=== PATIENT | female | born 1935 | race Caucasian/White ===

== ENCOUNTER 2019-12-14 15:20 | Inpatient (IN) | payer MEDICARE, OTHER ==
[2019-12-14] MEDS ORDERED: SODIUM CHLORIDE FLUSH 0.9% 10 ML SYRINGE IVP PRN (18:29)
[2019-12-14] MEDS ORDERED: IOVERSOL 320 100 ML VIAL IVP ONE (19:27)
--- NOTE | 2019-12-14 19:42 | HISTORY & PHYSICAL EXAMINATION ---
Chief Complaint - Chief Complaint Chief Complaint: Jaw infection History of Present Illness - Admitted From Admitted From:: home - History of Present Illness HPI Comment/Other: 84 yo F with T2DM on insulin therapy, COPD, CKD who fell on Wednesday 12APR hitting her head on a bookcase. She was seen in [facility] ER and found to have a jaw fracture and infection of an implant in her jaw. She saw her oral surgeon today who wanted to admit her for hte infection and surgery. She currently feels okay just has pain in her jaw. She states the swelling on her face has improved while on the oral antibiotics. History - Past Medical History Cardiovascular: reports: High cholesterol, Murmur Respiratory: reports: COPD Endocrine/Autoimmune: reports: Type 2 diabetes GI: reports: GERD : reports: Incontinence, Renal insuffiency HEENT: reports: Dental implants Psych: reports: Depression Musculoskeletal: reports: Rheumatoid arthritis - Past Surgical History Ortho: reports: Knee replacement HEENT: reports: Cataracts - Family & Social History Living arrangement: At home Living Situation: With family - Substance History Use: Uses substance without health or social issues: NONE - POLST Patient has POLST: No POLST Status: DNR (Advanced Directive with . DNR/I) Meds/Allgy - Home Medications Home Medications: Ambulatory Orders Medication Instructions Recorded Confirmed Albuterol Sulfate [Proair Hfa 1 puffs INH Q4H PRN 12/14/19 12/14/19 Inhaler] Aspirin [Aspirin EC] 81 mg PO DAILY 12/14/19 12/14/19 Atorvastatin [Lipitor] 40 mg PO DAILY 12/14/19 12/14/19 Clindamycin HCl [Clindamycin 300MG 300 mg PO TID 12/14/19 12/14/19 CAP] FLUoxetine [PROzac] 40 mg PO DAILY 12/14/19 12/14/19 Fluticasone/Salmeterol [Advair 1 puffs INH BID 12/14/19 12/14/19 250-50 Diskus] Gabapentin 900 mg PO DAILY PM 12/14/19 12/14/19 Insulin Aspart [NovoLOG] 10 units INJ TIDWM 12/14/19 12/14/19 Insulin Glargine [Lantus Solostar] 28 units INJ DAILY 12/14/19 12/14/19 Omeprazole 20 mg PO DAILY 12/14/19 12/14/19 Telmisartan [Micardis] 10 mg PO DAILY 12/14/19 12/14/19 Tiotropium [place] [Spiriva 4 gm IH DAILY 12/14/19 12/14/19 Respimat] Tolterodine Tartrate [Detrol LA] 2 mg PO DAILY 12/14/19 12/14/19 - Allergies Allergies/Adverse Reactions: Allergies Allergy/AdvReac Type Severity Reaction Status Date / Time lisinopril Allergy Unknown Verified 12/14/19 20:06 Penicillins Allergy Unknown Verified 12/14/19 20:06 shellfish derived Allergy Hives Verified 12/14/19 20:06 Review of Systems - Constitutional Constitutional: denies: Fever, Chills - Ears, Nose & Throat Ears, Nose & Throat: reports: Dentures, Dental pain, Other (Right lower jaw pain and swelling) - Cardiovascular Cariovascular: denies: Chest pain - Respiratory Respiratory: denies: Cough, Wheezing - Gastrointestinal Gastrointestinal: denies: Abdominal pain - Integumentary Integumentary: denies: Rash Exam - Vital Signs Reviewed Vital Signs: Yes Vital Signs: Vital Signs x48h Temp Pulse Resp BP Pulse Ox 12/14/19 18:30 36.4 C L 95 16 144/80 H 94 - Physical Exam General Appearance: positive: No acute distress, Alert Eyes Bilateral: positive: PERRL, EOMI ENT: positive: Pharynx nml, Other (Adentulous, semicirular metal implant in the anterior mandible with purulent discharge surrounding it. Tender to light palpation over the mid right mandible and right upper neck.) Neck: positive: Trachea midline. negative: Lymphadenopathy (R), Lymphadenopathy (L) Respiratory: positive: No respiratory distress, Breath sounds nml Cardiovascular: positive: Regular rate & rhythm, Systolic murmur Abdomen: positive: Non-tender, No distention Skin: positive: No rash, Warm, Dry Extremities: positive: No pedal edema Neurologic/Psychiatric: positive: Oriented x3, CN's nml (2-12), Mood/affect nml Conclusion/Plan - Problem List (1) Mandibular body fracture Conclusion/Plan: 84 yo F with right mandibular fracture after falling 12APR. - Oral Surgeon consulted - CT with contrast of maxialofacial after IVF hydration. 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 - Clindamycin IV - Oral surgery consulted. (3) COPD (chronic obstructive pulmonary disease) Conclusion/Plan: COPD currently stable without exacerbation. - continue home medications (or equvalical) (4) Type 2 diabetes mellitus Conclusion/Plan: 84 yo F with T2DM on halfway insulin. Recent outpatient A1c of 10.7 - Lantus 20U QAM + Novolog 10U with meals. - Carb controlled diet and NPO at midnight. Qualifiers: Diabetes mellitus halfway insulin use: with halfway use Diabetes mellitus complication status: with kidney complications Diabetes mellitus complication detail: with chronic kidney disease (5) Depression Conclusion/Plan: continue medications (6) Rheumatoid arthritis Conclusion/Plan: Not on halfway immunosuppressive medications. (7) Chronic renal disease Conclusion/Plan: Baseline GFR 30-35 POC: duarte Diaz [phone] Code status: DNR/I
[2019-12-14 19:47] LABS: BASOPHILS # (AUTO) 0.1 10^3/uL (0.0-0.1); BASOPHILS % (AUTO) 0.7 %; EOSINOPHILS # (AUTO) 0.1 10^3/uL (0.0-0.7); EOSINOPHILS % (AUTO) 1.2 %; HGB - HEMOGLOBIN 15.2 g/dL (12.0-16.0); LYMPHOCYTES # (AUTO) 1.8 10^3/uL (1.5-3.5); LYMPHOCYTES % (AUTO) 25.9 %; MEAN CORPUSCULAR HEMOGLOBIN 30.7 pg (27.0-31.0); MEAN CORPUSCULAR HGB CONC 33.4 g/dL (32.0-36.0); MEAN CORPUSCULAR VOLUME 91.9 fL (81.0-99.0); MONOCYTES # (AUTO) 0.8 10^3/uL (0.0-1.0); MONOCYTES % (AUTO) 11.2 %; NEUTROPHILS # (AUTO) 4.2 10^3/uL (1.5-6.6); NEUTROPHILS % (AUTO) 60.6 %; PLT - PLATELET COUNT 191 10^3/uL (130-450); RED BLOOD COUNT 4.95 10^6/uL (4.20-5.40); RED CELL DISTRIBUTION WIDTH 12.6 % (12.0-15.0); WHITE BLOOD COUNT 6.9 x10^3/uL (4.8-10.8)
[2019-12-14 20:05] LABS: HB2 TOTAL 15.7 g/dL; HEMOGLOBIN A1C 1.46 g/dL; HEMOGLOBIN A1C % 10.7 % (4.6-6.2)
[2019-12-14] MEDS: ATORVASTATIN 40 MG TABLET PO SCH (20:21)
[2019-12-14] MEDS: GABAPENTIN 300 MG CAPSULE PO SCH (20:21)
[2019-12-14] MEDS: SODIUM CHLORIDE 0.9% 1,000 ML IV SCH (20:22)
[2019-12-14] MEDS: CLINDAMYCIN 600 MG/50 ML 50 ML IV SCH ×2 (20:22→23:38)
[2019-12-14 20:24] LABS: CALCIUM 9.1 mg/dL (8.5-10.3); CREATININE 1.6 mg/dL (0.4-1.0)
[2019-12-14] MEDS ORDERED: INSULIN ASPART 300 UNIT/3 ML PEN SUBQ SCH (21:32)
[2019-12-15] MEDS: SODIUM CHLORIDE FLUSH 0.9% 10 ML SYRINGE IVP SCH ×3 (00:22→17:12)
[2019-12-15] MEDS ORDERED: SODIUM CHLORIDE FLUSH 0.9% 10 ML SYRINGE IVP SCH (01:00)
[2019-12-15] MEDS: SODIUM CHLORIDE 0.9% 1,000 ML IV SCH ×3 (04:41→15:45)
[2019-12-15] MEDS: CLINDAMYCIN 600 MG/50 ML 50 ML IV SCH ×4 (05:41→23:03)
[2019-12-15 06:02] LABS: HGB - HEMOGLOBIN 14.8 g/dL (12.0-16.0); MEAN CORPUSCULAR HEMOGLOBIN 30.7 pg (27.0-31.0); MEAN CORPUSCULAR VOLUME 92.9 fL (81.0-99.0); RED BLOOD COUNT 4.82 10^6/uL (4.20-5.40); RED CELL DISTRIBUTION WIDTH 12.8 % (12.0-15.0); WHITE BLOOD COUNT 5.3 x10^3/uL (4.8-10.8)
[2019-12-15] MEDS: INSULIN REGULAR HUMAN 300 UNIT/3 ML VIAL SUBQ SCH ×3 (06:02→17:12)
[2019-12-15] MEDS: PANTOPRAZOLE 40 MG TABLET PO SCH (06:02)
[2019-12-15 06:10] LABS: CREATININE 1.3 mg/dL (0.4-1.0)
[2019-12-15] MEDS: FORMOTEROL FUMARATE NEB 20 MCG/2 ML INH SCH ×2 (07:40→19:40)
[2019-12-15] MEDS: BUDESONIDE 0.5 MG/2 ML NEB INH SCH ×2 (07:40→19:40)
--- NOTE | 2019-12-15 07:56 | PROVIDER PROGRESS NOTE ---
Assessment/Plan - Problem List (1) Mandibular body fracture Assessment/Plan: This was ruled out with CT scan of the facial bones without contrast. Done today December 15, 2019 (2) Superficial foreign body gum without major open wound with infection Assessment/Plan: Patient is on clindamycin IV. Will continue. Dr. Magdaleno with oral surgery consulted and will see the patient. As part of a preop evaluation a 12-lead Electrocardiogram done showed nonspecific T wave abnormalities in the inferior leads and all R wave progressions with early transition. There was also a prolonged QT interval. As a result a plan would be to get an echocardiogram or a stress test. The next available time a 2D echocardiogram can be done will be on Wednesday, December 18, 2019. This was discussed with Dr. Magdaleno. (3) COPD (chronic obstructive pulmonary disease) Assessment/Plan: Not in exacerbation. We will continue home medications. (4) Type 2 diabetes mellitus Qualifiers: Diabetes mellitus usp insulin use: with assistant terminal manager use Diabetes mellitus complication status: with kidney complications Diabetes mellitus complication detail: with chronic kidney disease Assessment/Plan: Carb controlled diet ordered Lantus 20 units subcu daily. Sliding scale insulin. (5) Chronic renal disease Assessment/Plan: GFR today is 39 We will continue to monitor - Current Meds Current Meds: Current Medications Generic Name Dose Route Start Last Admin Trade Name Freq PRN Reason Stop Dose Admin Atorvastatin Calcium 40 mg 12/14/19 21:00 12/14/19 20:21 Lipitor PO 40 mg QPM LESLY Administration Gabapentin 900 mg 12/14/19 21:00 12/14/19 20:21 Neurontin PO 900 mg QPM LESLY Administration Clindamycin Phosphate 50 mls @ 100 mls/hr 12/14/19 19:00 12/15/19 06:11 Cleocin 600 Mg/50 Ml IV Infused Q6HR LESLY Infusion Sodium Chloride 1,000 mls @ 125 mls/hr 12/14/19 20:00 12/15/19 06:11 Normal Saline 0.9% IV 125 mls/hr .Q8H LESLY Infusion Insulin Human Regular 1 - 9 unit 12/15/19 06:00 12/15/19 06:02 Humulin R SUBQ 1 unit Q6HR LESLY Administration Protocol Pantoprazole Sodium 40 mg 12/15/19 07:00 12/15/19 06:02 Protonix PO 40 mg QDAC LESLY Administration Sodium Chloride 10 ml 12/15/19 01:00 12/15/19 00:22 Normal Saline Flush 0.9% IVP Not Given 0100,0900,1700 LESLY - Lab Result Fish Bone Diagrams: 12/15/19 05:45 12/15/19 05:45 - Additional Planning Condition/Complexity: Stable Consult/Specialty: Other (Oral surgery) Time Spent: 15-30 minutes Subjective - Subjective Patient Reports: Other (Patient seen and examined this morning. She complained of left jaw pain. She rated the pain 6 out of a 10 scale. However she declined any narcotics to address the pain. She has been n.p.o. most of today for imaging. She denies chest pain, dyspnea, abdominal pain, nausea, vomiting, fever or chills. On review she states that her fall was mechanical in nature. Rest of her history is unremarkable) Objective Vital Signs: Vital Signs - 24 hr 12/14/19 12/14/19 12/14/19 18:30 23:30 23:35 Temperature 36.4 C L 37.0 C Heart Rate 95 Heart Rate [ 95 76 Brachial] Respiratory 16 18 16 Rate Blood Pressure 144/80 H 129/77 [Right Brachial artery] O2 Saturation 94 97 12/15/19 12/15/19 12/15/19 04:35 07:37 07:47 Temperature 36.3 C L 36.6 C Heart Rate 74 Heart Rate [ 77 78 Brachial] Respiratory 18 16 18 Rate Blood Pressure 131/65 H 126/80 [Right Brachial artery] O2 Saturation 95 93 Oxygen O2 Source Room air I&O (Last 24 Hrs): Intake and Output Totals x24h 12/13/19 12/14/19 12/15/19 23:59 23:59 23:59 Intake Total 757.5 787.5 Balance 757.5 787.5 General: Alert, Oriented x3, Cooperative, Moderate distress HEENT: PERRLA, EOMI, Other (Slight swelling in the jaw and chin due to mechanical fall) Neck: Supple, No JVD Neuro: Alert, Oriented Times 3 Cardiovascular: Regular rate, No murmurs Respiratory: Chest non-tender, No respiratory distress, Rhonchi, Other (Coarse breath sounds) Abdomen: Normal bowel sounds, Soft Extremities: No clubbing, No cyanosis, No edema, No tenderness/swelling Skin: No rashes - Results Results: Laboratory Results WBC 5.3 x10^3/uL (4.8-10.8) 12/15/19 05:45 RBC 4.82 10^6/uL (4.20-5.40) 12/15/19 05:45 Hgb 14.8 g/dL (12.0-16.0) 12/15/19 05:45 Hct 44.8 % (37.0-47.0) 12/15/19 05:45 MCV 92.9 fL (81.0-99.0) 12/15/19 05:45 MCH 30.7 pg (27.0-31.0) 12/15/19 05:45 MCHC 33.0 g/dL (32.0-36.0) 12/15/19 05:45 RDW 12.8 % (12.0-15.0) 12/15/19 05:45 Plt Count 191 10^3/uL (130-450) 12/15/19 05:45 MPV 11.0 fL (7.9-10.8) H 12/15/19 05:45 Neut # (Auto) 4.2 10^3/uL (1.5-6.6) 12/14/19 19:38 Lymph # (Auto) 1.8 10^3/uL (1.5-3.5) 12/14/19 19:38 [place] # (Auto) 0.8 10^3/uL (0.0-1.0) 12/14/19 19:38 Eos # (Auto) 0.1 10^3/uL (0.0-0.7) 12/14/19 19:38 Baso # (Auto) 0.1 10^3/uL (0.0-0.1) 12/14/19 19:38 Absolute Nucleated RBC 0.00 x10^3/uL 12/14/19 19:38 Nucleated RBC % 0.0 /100WBC 12/14/19 19:38 Sodium 138 mmol/L (135-145) 12/15/19 05:45 Potassium 3.9 mmol/L (3.5-5.0) 12/15/19 05:45 Chloride 103 mmol/L (101-111) 12/15/19 05:45 Carbon Dioxide 26 mmol/L (21-32) 12/15/19 05:45 Anion Gap 9.0 (6-13) 12/15/19 05:45 BUN 24 mg/dL (6-20) H 12/15/19 05:45 Creatinine 1.3 mg/dL (0.4-1.0) H 12/15/19 05:45 Estimated GFR (MDRD) 39 (>89) L 12/15/19 05:45 Glucose 156 mg/dL (70-100) H 12/15/19 05:45 POC Whole Bld Glucose 155 mg/dL (70 - 100) H 12/15/19 05:43 Glycated Hemoglobin 10.7 % (4.6-6.2) H 12/14/19 19:38 Estim Average Glucose 260 (70-100) H 12/14/19 19:38 Calcium 9.0 mg/dL (8.5-10.3) 12/15/19 05:45 ABX Reporting Has patient been on IV antibiotics over the past 48 hours?: No
[2019-12-15] MEDS ORDERED: IOVERSOL 320 100 ML VIAL IVP ONE (07:58)
[2019-12-15] MEDS ORDERED: FLUoxetine 10 MG CAPSULE PO SCH (09:00)
[2019-12-15] MEDS: INSULIN ASPART 300 UNIT/3 ML PEN SUBQ SCH ×4 (09:12→23:01)
[2019-12-15] MEDS: ACETAMINOPHEN 325 MG TABLET PO PRN ×2 (09:29→15:39)
[2019-12-15] MEDS: LOSARTAN 50 MG TABLET PO SCH (09:30)
[2019-12-15] MEDS: TOLTERODINE LA 2 MG CAPSULE PO SCH (09:31)
[2019-12-15] MEDS: LACTOBACILLUS RHAMNOSUS GG CAPSULE PO SCH (09:31)
[2019-12-15] MEDS: ENOXAPARIN 40 MG/0.4 ML SYRINGE SUBQ SCH (09:32)
[2019-12-15] MEDS: INSULIN GLARGINE 300 UNIT/3 ML PEN SUBQ SCH (10:15)
--- NOTE | 2019-12-15 10:18 | XRAY Report ---
Reason: pre-op eval Procedure Date: 12/15/2019 Accession Number: [id number] / [id number] Procedure: XR - Chest 1 View X-Ray CPT Code: 70918 Final Report FULL RESULT: EXAM: CHEST RADIOGRAPHY EXAM DATE: 12/15/2019 10:05 AM. CLINICAL HISTORY: Pre-op eval. COMPARISON: None. TECHNIQUE: 1 view. FINDINGS: Lungs/Pleura: Minimal basal interstitial opacity probably atelectasis. No focal opacities evident. No pleural effusion. No pneumothorax. Mediastinum: Within exam limitations, the cardiomediastinal contour is normal. Aortic calcifications are present. Other: None. IMPRESSION: No convincing acute cardiopulmonary abnormality. RADIA
--- NOTE | 2019-12-15 10:31 | CT Report ---
Reason: left mandibular fracture Procedure Date: 12/15/2019 Accession Number: [id number] / [id number] Procedure: CT - MAXILLOFACIAL WO CPT Code: Final Report FULL RESULT: EXAM: CT MAXILLOFACIAL WITHOUT CONTRAST EXAM DATE: 12/15/2019 09:16 AM. CLINICAL HISTORY: Left mandibular fracture. COMPARISONS: None. TECHNIQUE: Thin-section axial images were acquired of the face without contrast. Post-processing: Coronal and sagittal reformats. Other: None. In accordance with CT protocol optimization, one or more of the following dose reduction techniques were utilized for this exam: automated exposure control, adjustment of mA and/or KV based on patient size, or use of iterative reconstructive technique. FINDINGS: Soft Tissue: The infratemporal fossa and parapharyngeal spaces are unremarkable. Orbits: Symmetric and unremarkable. Bones: Mandible is atrophic. In the anterior (mentum) portion of the mandible, there are 2 implants. On the right side, significant lucency surrounds the implant. Lesser amount lucency surrounds the left implant. Series 3 image 21. Mandibular canal shows only a thin rim of bone superiorly on the left and right sides. No evidence for fracture. Temporomandibular Joints: Left TMJ shows advanced arthritic change with bone remodeling of the left mandibular condyle and articular fossa. Series 6 image 87. Sinuses: No significant mucosal thickening. Bilateral [place] cells. Drainage pathways are normal. No [place] cells, olfactory recesses are normal depth. Lamina papyracea is intact. Anterior choroidal arteries are covered. Other: Multilevel moderate to severe bilateral facet arthropathy in the imaged upper cervical spine. IMPRESSION: None. Atrophic mandible. No fractures. Anterior aspect of the mandible shows 2 implants, on the right side, significant lucency surrounds the implant. Lesser amount of lucency surrounds the left implant. RADIA
--- NOTE | 2019-12-15 11:03 | PHARMACY PROGRESS NOTE ---
- Best Possible Medication History Admit Date and Time: 12/14/191807 Processed by: Pharmacy Medication History completed: Yes Patient Interview: Completed Secondary Source(s): Insurance records (PATIENT NOT FIMILAR WITH THE NAMES OF MEDICATIONS, SAYS KNOWS WHAT SHE TAKES, MED-REC BASED OFF OF INSURANCE CLAIMS ) As the person ultimately responsible for medication therapy, providers are able to order a medication from an existing home medication list in [facility] via the "Reconcile Routine" prior to Confirmation of that medication by java support engineer. Such practice is discouraged except when the physician, in their clinical judgment, deems that a medical need exists for a medication without regard to previous use.
--- NOTE | 2019-12-15 16:07 | CONSULTATION NOTE ---
Referring Provider Name of Referring Provider:: Radha Consult Date: 12/15/19 Chief Complaint - Chief Complaint Chief Complaint: Jaw pain History of Present Illness - History Obtained From Records Reviewed: Yes History obtained from: Patient and records - History of Present Illness HPI Comment/Other: Kezia is a very pleasant 84 yo F who reports for jaw pain and swelling. For the last week she has had increasing jaw pain. Four days ago she presented to the ER with jaw pain and was given a prescription for oral clindamycin, which she has been taking. She reports mild improvement in pain and swelling since starting the antibiotics. On she presented to my office for evaluation and was found to have an e xtremely atrophic mandible and sumbental cellulitis. Her tenderness was too severe to tolerate a thorough oral exam. Radiographically the mandible was appreciated to be less than 1mm thick. Mandible fracture was suspected, and if not already present, then imminent. The patient was referred to [facility] for inpatient admission and IV antibiotics to manage her infection, and medical optimization for surgery while inpatient. I spoke with Dr. Garcia on the phone regarding her current condition. History - Past Medical History Cardiovascular: reports: High cholesterol, Murmur Respiratory: reports: COPD Neuro: reports: Peripheral neuropathy Endocrine/Autoimmune: reports: Type 2 diabetes GI: reports: GERD : reports: Incontinence, Renal insuffiency HEENT: reports: Dental implants Psych: reports: Depression Musculoskeletal: reports: Rheumatoid arthritis Derm: reports: None Other Past Medical History: Dizzy spells - Past Surgical History Ortho: reports: Knee replacement /ART DEPARTMENT HEAD: reports: Hysterectomy, Oophrectomy HEENT: reports: Cataracts - Family & Social History Living arrangement: At home Living Situation: With family - Substance History Use: Uses substance without health or social issues: NONE - POLST Patient has POLST: No POLST Status: DNR (Advanced Directive with . DNR/I) Meds/Allgy - Home Medications Home Medications: Ambulatory Orders Medication Instructions Recorded Confirmed Albuterol Sulfate [Proair Hfa 1 puffs INH Q4H PRN 12/14/19 12/14/19 Inhaler] Aspirin [Aspirin EC] 81 mg PO DAILY 12/14/19 12/14/19 Atorvastatin [Lipitor] 40 mg PO DAILY 12/14/19 12/14/19 Clindamycin HCl [Clindamycin 300MG 300 mg PO TID 12/14/19 12/14/19 CAP] Fluticasone/Salmeterol [Advair 1 puffs INH BID 12/14/19 12/14/19 250-50 Diskus] Gabapentin 900 mg PO DAILY PM 12/14/19 12/14/19 Insulin Aspart [NovoLOG] 10 units INJ TIDWM 12/14/19 12/14/19 Insulin Glargine [Lantus Solostar] 28 units INJ DAILY 12/14/19 12/14/19 Omeprazole 20 mg PO DAILY 12/14/19 12/14/19 Telmisartan [Micardis] 10 mg PO DAILY 12/14/19 12/14/19 Tiotropium [place] [Spiriva 4 gm IH DAILY 12/14/19 12/14/19 Respimat] Tolterodine Tartrate [Detrol LA] 2 mg PO DAILY 12/14/19 12/14/19 - Allergies Allergies/Adverse Reactions: Allergies Allergy/AdvReac Type Severity Reaction Status Date / Time lisinopril Allergy Unknown Verified 12/14/19 20:06 Penicillins Allergy Unknown Verified 12/14/19 20:06 shellfish derived Allergy Hives Verified 12/14/19 20:06 Review of Systems - Constitutional Constitutional: reports: Fatigue. denies: Fever, Chills - Eyes Eyes: denies: Pain, Blurred vision - Ears, Nose & Throat Ears, Nose & Throat: reports: Other (Severe pain of the anterior mandible. Improving pain of the sumbental area. Swelling spreading inferiorly affecting her voice. Foul tasting drainage in her mouth.) - Cardiovascular Cariovascular: denies: Chest pain - Respiratory Respiratory: reports: Cough, Sputum production. denies: Wheezing - Gastrointestinal Gastrointestinal: denies: Abdominal pain, Diarrhea - Integumentary Integumentary: reports: Other (Pain and redness in the submental area) - Neurological Neurological: reports: Other (Denies V3 hypoesthesia.) - Psychiatric Psychiatric: denies: Depression, Anxiety - Endocrine Endocrine: denies: Polyuria, Polydypsia - All Other Systems All Other Systems: reports: Reviewed and negative Exam - Vital Signs Vital Signs: Vital Signs x48h Temp Pulse BP Pulse Ox 12/15/19 15:55 36.3 C L 63 135/67 H 94 - Physical Exam General Appearance: positive: No acute distress, Alert Eyes Bilateral: positive: PERRL, EOMI ENT: positive: Other (Maximum opening within normal limits. Uvula midline. No lateral pharyngeal swelling. Tongue non-elevated. Anterior floor of mouth edematous and tender, but improved since yesterday. Implant at site #27 ex tremely tender. Mild purulence around the implant.) Neck: positive: Other (Erythema and induration of the submental space. No submandibular space swelling. The swelling appears bounded by the anterior bellies of the digastric muscles. The erythema and induration have improved.) Respiratory: positive: Chest non-tender, No respiratory distress Cardiovascular: positive: Regular rate & rhythm Peripheral Pulses: positive: 1+ Abdomen: positive: Non-tender, No distention Skin: positive: Warm, Dry Extremities: positive: Non-tender, Full ROM Neurologic/Psychiatric: positive: CN's nml (2-12) Conclusion/Plan - Diagnosis Diagnosis: Submental cellulitis secondary to failed mandibular implant. Severely atrophic mandible with near complete loss of continuity - Plan Plan: A: 84 yo F w/ the following maxillofacial diagnoses: 1. 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 submental cellulitis 2/2 failed implant 3. 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 P: We anticipate removal of the failed implant #27, sectioning off implant #22 at bone level and leaving it in place to avoid removing it and causing additional fracture, and likely reconstruction of the mandible with a reconstruction plate in the main OR on Wednesday. Echo pending. Will postpone surgery as needed for cardiac workup. Continue IV abx and probiotics DVT prophylaxis okay Ambulate TID STRICT non-chew diet. Pureed foods and full liquids only. Please call with any questions. [phone] Appreciate IM assistance Renny Magdaleno DDS - Lab Results Fish Bones: 12/15/19 05:45 12/15/19 05:45
[2019-12-15] MEDS: GABAPENTIN 300 MG CAPSULE PO SCH (21:03)
[2019-12-15] MEDS: ATORVASTATIN 40 MG TABLET PO SCH (21:06)
[2019-12-16] MEDS: SODIUM CHLORIDE FLUSH 0.9% 10 ML SYRINGE IVP SCH ×3 (01:16→16:57)
[2019-12-16] MEDS: SODIUM CHLORIDE 0.9% 1,000 ML IV SCH ×3 (01:16→18:42)
[2019-12-16 05:55] LABS: HGB - HEMOGLOBIN 13.9 g/dL (12.0-16.0); MEAN CORPUSCULAR HGB CONC 32.9 g/dL (32.0-36.0); MEAN PLATELET VOLUME 10.8 fL (7.9-10.8); RED BLOOD COUNT 4.49 10^6/uL (4.20-5.40); RED CELL DISTRIBUTION WIDTH 12.9 % (12.0-15.0); WHITE BLOOD COUNT 4.3 x10^3/uL (4.8-10.8)
[2019-12-16 06:00] LABS: CALCIUM 8.2 mg/dL (8.5-10.3); CREATININE 1.2 mg/dL (0.4-1.0)
[2019-12-16] MEDS: CLINDAMYCIN 600 MG/50 ML 50 ML IV SCH ×4 (06:42→23:45)
[2019-12-16] MEDS: ACETAMINOPHEN 325 MG TABLET PO PRN ×4 (06:43→21:24)
[2019-12-16] MEDS: PANTOPRAZOLE 40 MG TABLET PO SCH (06:43)
[2019-12-16] MEDS: FORMOTEROL FUMARATE NEB 20 MCG/2 ML INH SCH ×2 (07:09→19:47)
[2019-12-16] MEDS: BUDESONIDE 0.5 MG/2 ML NEB INH SCH ×2 (07:09→19:47)
[2019-12-16] MEDS ORDERED: INSULIN ASPART 300 UNIT/3 ML PEN SUBQ SCH (08:00)
--- NOTE | 2019-12-16 08:24 | PROVIDER PROGRESS NOTE ---
Assessment/Plan - Problem List (1) Superficial foreign body gum without major open wound with infection Assessment/Plan: Dr. Wesley with oral surgery following. Surgery postponed to possibly Friday, December 20, 2019. Pending echocardiogram. We will continue clindamycin IV. (2) COPD (chronic obstructive pulmonary disease) Assessment/Plan: Not in exacerbation. We will continue home medications. (3) Type 2 diabetes mellitus Qualifiers: Diabetes mellitus half-way insulin use: with buttermaker continuous churn use Diabetes elena litus complication status: with kidney complications Diabetes mellitus co mplication detail: with chronic kidney disease Assessment/Plan: Carb controlled diet ordered Lantus 20 units subcu daily. Sliding scale insulin. (4) Chronic renal disease Assessment/Plan: GFR today is 42 We will continue to monitor - Current Meds Current Meds: Current Medications Generic Name Dose Route Start Last Admin Trade Name Freq PRN Reason Stop Dose Admin Acetaminophen 650 mg 12/14/19 18:29 12/16/19 06:43 Tylenol PO 650 mg Q4HR PRN Administration Pain 1 to 4 Atorvastatin Calcium 40 mg 12/14/19 21:00 12/15/19 21:06 Lipitor PO 40 mg QPM LESLY Administration Budesonide 0.5 mg 12/15/19 07:00 12/16/19 07:09 Pulmicort INH 0.5 mg RTBID LESLY Administration Enoxaparin Sodium 40 mg 12/15/19 09:00 12/15/19 09:32 Lovenox SUBQ 40 mg DAILY LESLY Administration Formoterol Fumarate 20 mcg 12/15/19 07:00 12/16/19 07:09 Perforomist INH 20 mcg RTBID LESLY Administration Gabapentin 900 mg 12/14/19 21:00 12/15/19 21:03 Neurontin PO 900 mg QPM LESLY Administration Clindamycin Phosphate 50 mls @ 100 mls/hr 12/14/19 19:00 12/16/19 06:42 Cleocin 600 Mg/50 Ml IV 100 mls/hr Q6HR LESLY Administration Sodium Chloride 1,000 mls @ 125 mls/hr 12/14/19 20:00 12/16/19 01:16 Normal Saline 0.9% IV 125 mls/hr .Q8H LESLY Administration Insulin Aspart 10 unit 12/15/19 08:00 12/15/19 17:11 Novolog SUBQ Not Given TIDWM LESLY Protocol Insulin Aspart 1 - 9 unit 12/15/19 21:58 12/15/19 23:01 Novolog SUBQ 3 unit 0800,1200,1700,2100 LESLY Administration Protocol Insulin Glargine 20 unit 12/15/19 09:00 12/15/19 10:15 Lantus Solostar SUBQ 20 unit DAILY LESLY Administration Lactobacillus Rhamnosus 1 cap 12/15/19 09:00 12/15/19 09:31 Culturelle PO 1 cap DAILY LESLY Administration Losartan Potassium 25 mg 12/15/19 09:00 12/15/19 09:30 Cozaar PO 25 mg DAILY LESLY Administration Pantoprazole Sodium 40 mg 12/15/19 07:00 12/16/19 06:43 Protonix PO 40 mg QDAC LESLY Administration Sodium Chloride 10 ml 12/15/19 01:00 12/16/19 01:16 Normal Saline Flush 0.9% IVP 10 ml 0100,0900,1700 LESLY Administration Tolterodine Tartrate 2 mg 12/15/19 09:00 12/15/19 09:31 Detrol La PO 2 mg DAILY LESLY Administration - Lab Result Fish Bone Diagrams: 12/16/19 05:44 12/16/19 05:44 - Additional Planning Condition/Complexity: Stable My Orders: My Active Orders 12/15/19 11:52 Echo Transthoracic Complete [ECHO] Stat 12/15/19 Dinner DIET [Carb-controlled Diet] [DIET] Plan Discussed with:: Patient Time Spent: 15-30 minutes Subjective - Subjective Patient Reports: Other (And was resting comfortably in bed at time of my exam. She reports a moderate amount of pain and had chills. She denies any other complaints at the moment.) Objective Vital Signs: Vital Signs - 24 hr 12/15/19 12/15/19 12/16/19 15:55 19:43 00:00 Temperature 36.3 C L 36.6 C Heart Rate 63 Heart Rate [ 63 72 Brachial] Respiratory 18 16 Rate Blood Pressure 135/67 H 130/68 [Right Brachial artery] O2 Saturation 94 93 12/16/19 12/16/19 07:10 07:30 Temperature 36.2 C L Heart Rate 80 Heart Rate [ 65 Brachial] Respiratory 16 18 Rate Blood Pressure 154/52 H [Right Brachial artery] O2 Saturation 97 Oxygen O2 Source Room air I&O (Last 24 Hrs): Intake and Output Totals x24h 12/14/19 12/15/19 12/16/19 23:59 23:59 23:59 Intake Total 757.5 3172.500 240 Output Total 325 Balance 757.5 2847.500 240 General: Alert, Oriented x3, Cooperative, Moderate distress (jaw) HEENT: Atraumatic, PERRLA, EOMI, Other (chin mildly erythematous) Neck: Supple, No JVD Neuro: Alert, Non Focal Cardiovascular: Regular rate Respiratory: Chest non-tender, No respiratory distress, Breath sounds nml Abdomen: Normal bowel sounds, Soft, No tenderness Extremities: No clubbing, No cyanosis Skin: No rashes - Results Results: Laboratory Results WBC 4.3 x10^3/uL (4.8-10.8) L 12/16/19 05:44 RBC 4.49 10^6/uL (4.20-5.40) 12/16/19 05:44 Hgb 13.9 g/dL (12.0-16.0) 12/16/19 05:44 Hct 42.2 % (37.0-47.0) 12/16/19 05:44 MCV 94.0 fL (81.0-99.0) 12/16/19 05:44 MCH 31.0 pg (27.0-31.0) 12/16/19 05:44 MCHC 32.9 g/dL (32.0-36.0) 12/16/19 05:44 RDW 12.9 % (12.0-15.0) 12/16/19 05:44 Plt Count 165 10^3/uL (130-450) 12/16/19 05:44 MPV 10.8 fL (7.9-10.8) 12/16/19 05:44 Neut # (Auto) 4.2 10^3/uL (1.5-6.6) 12/14/19 19:38 Lymph # (Auto) 1.8 10^3/uL (1.5-3.5) 12/14/19 19:38 [place] # (Auto) 0.8 10^3/uL (0.0-1.0) 12/14/19 19:38 Eos # (Auto) 0.1 10^3/uL (0.0-0.7) 12/14/19 19:38 Baso # (Auto) 0.1 10^3/uL (0.0-0.1) 12/14/19 19:38 Absolute Nucleated RBC 0.00 x10^3/uL 12/14/19 19:38 Nucleated RBC % 0.0 /100WBC 12/14/19 19:38 Sodium 139 mmol/L (135-145) 12/16/19 05:44 Potassium 3.7 mmol/L (3.5-5.0) 12/16/19 05:44 Chloride 107 mmol/L (101-111) 12/16/19 05:44 Carbon Dioxide 26 mmol/L (21-32) 12/16/19 05:44 Anion Gap 6.0 (6-13) 12/16/19 05:44 BUN 17 mg/dL (6-20) 12/16/19 05:44 Creatinine 1.2 mg/dL (0.4-1.0) H 12/16/19 05:44 Estimated GFR (MDRD) 43 (>89) L 12/16/19 05:44 Glucose 120 mg/dL (70-100) H 12/16/19 05:44 POC Whole Bld Glucose 125 mg/dL (70 - 100) H 12/16/19 07:22 Glycated Hemoglobin 10.7 % (4.6-6.2) H 12/14/19 19:38 Estim Average Glucose 260 (70-100) H 12/14/19 19:38 Calcium 8.2 mg/dL (8.5-10.3) L 12/16/19 05:44 ABX Reporting Has patient been on IV antibiotics over the past 48 hours?: Yes
[2019-12-16] MEDS: INSULIN ASPART 300 UNIT/3 ML PEN SUBQ SCH ×7 (08:56→21:28)
[2019-12-16] MEDS: polyethylene glycoL 3350 17 GM PACKET PO SCH (09:08)
[2019-12-16] MEDS: LACTOBACILLUS RHAMNOSUS GG CAPSULE PO SCH ×2 (09:09→09:15)
[2019-12-16] MEDS: ENOXAPARIN 40 MG/0.4 ML SYRINGE SUBQ SCH (09:09)
[2019-12-16] MEDS: TOLTERODINE LA 2 MG CAPSULE PO SCH ×2 (09:10→09:16)
[2019-12-16] MEDS: LOSARTAN 50 MG TABLET PO SCH (09:15)
[2019-12-16] MEDS: INSULIN GLARGINE 300 UNIT/3 ML PEN SUBQ SCH (09:18)
[2019-12-16] MEDS: GABAPENTIN 300 MG CAPSULE PO SCH (21:24)
[2019-12-16] MEDS: ATORVASTATIN 40 MG TABLET PO SCH (21:24)
[2019-12-17] MEDS: SODIUM CHLORIDE FLUSH 0.9% 10 ML SYRINGE IVP SCH ×3 (01:24→16:37)
[2019-12-17] MEDS: ACETAMINOPHEN 325 MG TABLET PO PRN ×3 (03:19→20:39)
[2019-12-17] MEDS: SODIUM CHLORIDE 0.9% 1,000 ML IV SCH ×3 (03:32→19:44)
[2019-12-17 05:35] LABS: HGB - HEMOGLOBIN 12.4 g/dL (12.0-16.0); MEAN CORPUSCULAR HEMOGLOBIN 29.7 pg (27.0-31.0); MEAN CORPUSCULAR VOLUME 92.8 fL (81.0-99.0); MEAN PLATELET VOLUME 11.1 fL (7.9-10.8); RED BLOOD COUNT 4.17 10^6/uL (4.20-5.40); RED CELL DISTRIBUTION WIDTH 13.1 % (12.0-15.0); WHITE BLOOD COUNT 3.3 x10^3/uL (4.8-10.8)
[2019-12-17 05:42] LABS: CALCIUM 8.3 mg/dL (8.5-10.3); CREATININE 1.2 mg/dL (0.4-1.0)
[2019-12-17] MEDS: CLINDAMYCIN 600 MG/50 ML 50 ML IV SCH ×3 (06:23→17:48)
[2019-12-17] MEDS: PANTOPRAZOLE 40 MG TABLET PO SCH (06:23)
[2019-12-17] MEDS: FORMOTEROL FUMARATE NEB 20 MCG/2 ML INH SCH ×2 (07:20→19:05)
[2019-12-17] MEDS: BUDESONIDE 0.5 MG/2 ML NEB INH SCH ×2 (07:20→19:05)
--- NOTE | 2019-12-17 07:47 | PROVIDER PROGRESS NOTE ---
Assessment/Plan - Problem List (1) Superficial foreign body gum without major open wound with infection Assessment/Plan: Dr. Wesley with oral surgery following. Surgery postponed to possibly Friday, December 20, 2019. Pending echocardiogram. We will continue clindamycin IV. (2) COPD (chronic obstructive pulmonary disease) Assessment/Plan: Not in exacerbation. We will continue home medications. (3) Type 2 diabetes mellitus Qualifiers: Diabetes mellitus prison insulin use: with intermediate accountant use Diabetes elena litus complication status: with kidney complications Diabetes mellitus co mplication detail: with chronic kidney disease Assessment/Plan: Carb controlled diet ordered Lantus 20 units subcu daily. Sliding scale insulin. (4) Chronic renal disease Assessment/Plan: GFR today is 43 We will continue to monitor - Current Meds Current Meds: Current Medications Generic Name Dose Route Start Last Admin Trade Name Freq PRN Reason Stop Dose Admin Acetaminophen 650 mg 12/14/19 18:29 12/17/19 03:19 Tylenol PO 650 mg Q4HR PRN Administration Pain 1 to 4 Atorvastatin Calcium 40 mg 12/14/19 21:00 12/16/19 21:24 Lipitor PO 40 mg QPM LESLY Administration Budesonide 0.5 mg 12/15/19 07:00 12/17/19 07:20 Pulmicort INH 0.5 mg RTBID LESLY Administration Enoxaparin Sodium 40 mg 12/15/19 09:00 12/16/19 09:09 Lovenox SUBQ 40 mg DAILY LESLY Administration Formoterol Fumarate 20 mcg 12/15/19 07:00 12/17/19 07:20 Perforomist INH 20 mcg RTBID LESLY Administration Gabapentin 900 mg 12/14/19 21:00 12/16/19 21:24 Neurontin PO 900 mg QPM LESLY Administration Clindamycin Phosphate 50 mls @ 100 mls/hr 12/14/19 19:00 12/17/19 07:15 Cleocin 600 Mg/50 Ml IV Infused Q6HR LESLY Infusion Sodium Chloride 1,000 mls @ 125 mls/hr 12/14/19 20:00 12/17/19 03:32 Normal Saline 0.9% IV 125 mls/hr .Q8H LESLY Administration Insulin Aspart 10 unit 12/15/19 08:00 12/16/19 16:58 Novolog SUBQ Not Given TIDWM LESLY Protocol Insulin Aspart 1 - 9 unit 12/15/19 21:58 12/16/19 21:28 Novolog SUBQ 1 unit 0800,1200,1700,2100 LESLY Administration Protocol Insulin Glargine 20 unit 12/15/19 09:00 12/16/19 09:18 Lantus Solostar SUBQ 20 unit DAILY LESLY Administration Lactobacillus Rhamnosus 1 cap 12/15/19 09:00 12/16/19 09:15 Culturelle PO 1 cap DAILY LESLY Administration Losartan Potassium 25 mg 12/15/19 09:00 12/16/19 09:15 Cozaar PO 25 mg DAILY LESLY Administration Pantoprazole Sodium 40 mg 12/15/19 07:00 12/17/19 06:23 Protonix PO 40 mg QDAC LESLY Administration Polyethylene Glycol 17 gm 12/16/19 09:00 12/16/19 09:08 Miralax PO 17 gm DAILY LESLY Administration Sodium Chloride 10 ml 12/15/19 01:00 12/17/19 01:24 Normal Saline Flush 0.9% IVP Not Given 0100,0900,1700 LESLY Tolterodine Tartrate 2 mg 12/15/19 09:00 12/16/19 09:16 Detrol La PO 2 mg DAILY LESLY Administration - Lab Result Lab results reviewed: Yes Fish Bone Diagrams: 12/17/19 05:13 12/17/19 05:13 - Additional Planning Condition/Complexity: Stable My Orders: My Active Orders 12/18/19 05:00 BMP - BASIC METABOLIC PANEL [CHEM] DAILYLAB CBC - COMP BLD CT W/AUTO DIFF [HEME] DAILYLAB 12/19/19 05:00 BMP - BASIC METABOLIC PANEL [CHEM] DAILYLAB CBC - COMP BLD CT W/AUTO DIFF [HEME] DAILYLAB 12/20/19 05:00 BMP - BASIC METABOLIC PANEL [CHEM] DAILYLAB CBC - COMP BLD CT W/AUTO DIFF [HEME] DAILYLAB 12/21/19 05:00 BMP - BASIC METABOLIC PANEL [CHEM] DAILYLAB CBC - COMP BLD CT W/AUTO DIFF [HEME] DAILYLAB 12/22/19 05:00 BMP - BASIC METABOLIC PANEL [CHEM] DAILYLAB CBC - COMP BLD CT W/AUTO DIFF [HEME] DAILYLAB Time Spent: 15-30 minutes Subjective - Subjective Patient Reports: Other (Patient seen and examined this morning. She was resting comfortably in bed at time of my exam. There has been no significant change in her clinical status from yesterday to today. The pain in her jaw is still noted but manageable. The redness in the chin area has significantly improved.) Objective Vital Signs: Vital Signs - 24 hr 12/16/19 12/16/19 12/16/19 15:24 19:48 23:50 Temperature 36.6 C 36.5 C Heart Rate 69 Heart Rate [ 72 65 Brachial] Respiratory 18 14 18 Rate Blood Pressure 141/65 H 156/65 H [Right Brachial artery] O2 Saturation 94 95 12/17/19 07:24 Temperature Heart Rate 74 Heart Rate [ Brachial] Respiratory 18 Rate Blood Pressure [Right Brachial artery] O2 Saturation Oxygen O2 Source Room air I&O (Last 24 Hrs): Intake and Output Totals x24h 12/15/19 12/16/19 12/17/19 23:59 23:59 23:59 Intake Total 3172.500 4900 1350 Output Total 325 Balance 2847.500 4900 1350 General: Alert, Oriented x3, Cooperative, Moderate distress HEENT: Atraumatic, PERRLA, EOMI Neck: Supple, No JVD Neuro: Alert, Non Focal Cardiovascular: Regular rate Respiratory: Chest non-tender, No respiratory distress, Breath sounds nml Abdomen: Normal bowel sounds, Soft, No tenderness Extremities: No clubbing, No edema Skin: No rashes - Results Results: Laboratory Results WBC 3.3 x10^3/uL (4.8-10.8) L 12/17/19 05:13 RBC 4.17 10^6/uL (4.20-5.40) L 12/17/19 05:13 Hgb 12.4 g/dL (12.0-16.0) 12/17/19 05:13 Hct 38.7 % (37.0-47.0) 12/17/19 05:13 MCV 92.8 fL (81.0-99.0) 12/17/19 05:13 MCH 29.7 pg (27.0-31.0) 12/17/19 05:13 MCHC 32.0 g/dL (32.0-36.0) 12/17/19 05:13 RDW 13.1 % (12.0-15.0) 12/17/19 05:13 Plt Count 153 10^3/uL (130-450) 12/17/19 05:13 MPV 11.1 fL (7.9-10.8) H 12/17/19 05:13 Neut # (Auto) 4.2 10^3/uL (1.5-6.6) 12/14/19 19:38 Lymph # (Auto) 1.8 10^3/uL (1.5-3.5) 12/14/19 19:38 [place] # (Auto) 0.8 10^3/uL (0.0-1.0) 12/14/19 19:38 Eos # (Auto) 0.1 10^3/uL (0.0-0.7) 12/14/19 19:38 Baso # (Auto) 0.1 10^3/uL (0.0-0.1) 12/14/19 19:38 Absolute Nucleated RBC 0.00 x10^3/uL 12/14/19 19:38 Nucleated RBC % 0.0 /100WBC 12/14/19 19:38 Sodium 141 mmol/L (135-145) 12/17/19 05:13 Potassium 3.9 mmol/L (3.5-5.0) 12/17/19 05:13 Chloride 108 mmol/L (101-111) 12/17/19 05:13 Carbon Dioxide 25 mmol/L (21-32) 12/17/19 05:13 Anion Gap 8.0 (6-13) 12/17/19 05:13 BUN 16 mg/dL (6-20) 12/17/19 05:13 Creatinine 1.2 mg/dL (0.4-1.0) H 12/17/19 05:13 Estimated GFR (MDRD) 43 (>89) L 12/17/19 05:13 Glucose 71 mg/dL (70-100) 12/17/19 05:13 POC Whole Bld Glucose 145 mg/dL (70 - 100) H 12/16/19 21:07 Glycated Hemoglobin 10.7 % (4.6-6.2) H 12/14/19 19:38 Estim Average Glucose 260 (70-100) H 12/14/19 19:38 Calcium 8.3 mg/dL (8.5-10.3) L 12/17/19 05:13 ABX Reporting Has patient been on IV antibiotics over the past 48 hours?: Yes
[2019-12-17] MEDS: DOCUSATE SODIUM 250 MG CAPSULE PO SCH ×3 (08:39→21:48)
[2019-12-17] MEDS: LOSARTAN 50 MG TABLET PO SCH (08:39)
[2019-12-17] MEDS: ENOXAPARIN 40 MG/0.4 ML SYRINGE SUBQ SCH (08:40)
[2019-12-17] MEDS: INSULIN ASPART 300 UNIT/3 ML PEN SUBQ SCH ×7 (08:40→20:40)
[2019-12-17] MEDS: polyethylene glycoL 3350 17 GM PACKET PO SCH (08:45)
[2019-12-17] MEDS: INSULIN GLARGINE 300 UNIT/3 ML PEN SUBQ SCH (10:07)
[2019-12-17] MEDS ORDERED: ZINC OXIDE 20% OINT 30 GM TUBE TOP PRN (19:25)
[2019-12-17] MEDS ORDERED: CARBOXYMETHYLCELLULOSE OPHTH DROPS EACHEYE PRN (19:25)
[2019-12-17] MEDS ORDERED: MIN OIL/DIMETHICON/COCONUT OIL 92 GM TUBE TOP PRN (19:25)
[2019-12-17] MEDS: ATORVASTATIN 40 MG TABLET PO SCH (20:39)
[2019-12-17] MEDS: GABAPENTIN 300 MG CAPSULE PO SCH (20:39)
[2019-12-18] MEDS: CLINDAMYCIN 600 MG/50 ML 50 ML IV SCH ×5 (00:18→23:56)
[2019-12-18] MEDS: SODIUM CHLORIDE FLUSH 0.9% 10 ML SYRINGE IVP SCH ×4 (00:18→23:57)
[2019-12-18] MEDS: SODIUM CHLORIDE 0.9% 1,000 ML IV SCH ×3 (03:31→20:28)
[2019-12-18 05:48] LABS: BASOPHILS % (AUTO) 0.9 %; EOSINOPHILS # (AUTO) 0.1 10^3/uL (0.0-0.7); EOSINOPHILS % (AUTO) 3.4 %; HGB - HEMOGLOBIN 12.8 g/dL (12.0-16.0); LYMPHOCYTES # (AUTO) 1.4 10^3/uL (1.5-3.5); LYMPHOCYTES % (AUTO) 40.6 %; MEAN CORPUSCULAR HEMOGLOBIN 30.8 pg (27.0-31.0); MEAN CORPUSCULAR HGB CONC 33.2 g/dL (32.0-36.0); MEAN CORPUSCULAR VOLUME 92.8 fL (81.0-99.0); MEAN PLATELET VOLUME 11.2 fL (7.9-10.8); MONOCYTES # (AUTO) 0.3 10^3/uL (0.0-1.0); MONOCYTES % (AUTO) 9.7 %; NEUTROPHILS # (AUTO) 1.6 10^3/uL (1.5-6.6); NEUTROPHILS % (AUTO) 45.1 %; PLT - PLATELET COUNT 161 10^3/uL (130-450); RED BLOOD COUNT 4.16 10^6/uL (4.20-5.40); RED CELL DISTRIBUTION WIDTH 13.1 % (12.0-15.0); WHITE BLOOD COUNT 3.5 x10^3/uL (4.8-10.8)
[2019-12-18 06:07] LABS: CALCIUM 8.1 mg/dL (8.5-10.3)
[2019-12-18] MEDS: PANTOPRAZOLE 40 MG TABLET PO SCH (06:24)
[2019-12-18] MEDS: FORMOTEROL FUMARATE NEB 20 MCG/2 ML INH SCH ×2 (07:21→20:00)
[2019-12-18] MEDS: IPRATROPIUM/ALBUTEROL 3 ML NEB INH PRN ×2 (07:21→19:59)
[2019-12-18] MEDS: BUDESONIDE 0.5 MG/2 ML NEB INH SCH ×2 (07:21→19:59)
[2019-12-18] MEDS: ENOXAPARIN 40 MG/0.4 ML SYRINGE SUBQ SCH (08:03)
[2019-12-18] MEDS: LOSARTAN 50 MG TABLET PO SCH (08:03)
[2019-12-18] MEDS: TOLTERODINE LA 2 MG CAPSULE PO SCH (08:03)
[2019-12-18] MEDS: LACTOBACILLUS RHAMNOSUS GG CAPSULE PO SCH (08:03)
[2019-12-18] MEDS: INSULIN ASPART 300 UNIT/3 ML PEN SUBQ SCH ×4 (08:04→20:42)
[2019-12-18] MEDS: polyethylene glycoL 3350 17 GM PACKET PO SCH (08:05)
[2019-12-18] MEDS: DOCUSATE SODIUM 250 MG CAPSULE PO SCH ×3 (08:05→20:39)
[2019-12-18] MEDS: INSULIN GLARGINE 300 UNIT/3 ML PEN SUBQ SCH (08:06)
--- NOTE | 2019-12-18 11:47 | PROVIDER PROGRESS NOTE ---
Assessment/Plan - Problem List (1) Superficial foreign body gum without major open wound with infection Assessment/Plan: We will continue clindamycin IV. 2D echocardiogram in process. Tentative plan for surgery tomorrow December 19, 2019 to be done by Dr. Magdaleno with oral surgery (2) COPD (chronic obstructive pulmonary disease) Assessment/Plan: Not in exacerbation. We will continue home medications. (3) Type 2 diabetes mellitus Qualifiers: Diabetes mellitus halfway insulin use: with halfway use Diabetes mellitus complication status: with kidney complications Diabetes mellitus complication detail: with chronic kidney disease Assessment/Plan: Patient has had several episodes of hypoglycemia. As a result the Lantus was decreased to 10 units subcu daily. Has scheduled regular insulin was also discontinued for now. We will continue sliding scale insulin and Accu-Cheks. Patient will be n.p.o. after midnight in anticipation for surgery. (4) Chronic renal disease Assessment/Plan: GFR today is 53. We will continue to monitor - Current Meds Current Meds: Current Medications Generic Name Dose Route Start Last Admin Trade Name Freq PRN Reason Stop Dose Admin Acetaminophen 650 mg 12/14/19 18:29 12/17/19 20:39 Tylenol PO 650 mg Q4HR PRN Administration Pain 1 to 4 Albuterol/Ipratropium 3 ml 12/14/19 20:05 12/18/19 07:21 Duoneb INH 3 ml Q4HR PRN Administration Wheezing Atorvastatin Calcium 40 mg 12/14/19 21:00 12/17/19 20:39 Lipitor PO 40 mg QPM LESLY Administration Budesonide 0.5 mg 12/15/19 07:00 12/18/19 07:21 Pulmicort INH 0.5 mg RTBID LESLY Administration Docusate Sodium 250 - 500 mg 12/17/19 09:00 12/18/19 08:05 Colace 250mg Capsule PO Not Given BID LESLY Enoxaparin Sodium 40 mg 12/15/19 09:00 12/18/19 08:03 Lovenox SUBQ 40 mg DAILY LESLY Administration Formoterol Fumarate 20 mcg 12/15/19 07:00 12/18/19 07:21 Perforomist INH 20 mcg RTBID LESLY Administration Gabapentin 900 mg 12/14/19 21:00 12/17/19 20:39 Neurontin PO 900 mg QPM LESLY Administration Clindamycin Phosphate 50 mls @ 100 mls/hr 12/14/19 19:00 12/18/19 11:32 Cleocin 600 Mg/50 Ml IV 100 mls/hr Q6HR LESLY Administration Sodium Chloride 1,000 mls @ 125 mls/hr 12/14/19 20:00 12/18/19 11:33 Normal Saline 0.9% IV 125 mls/hr .Q8H LESLY Administration Insulin Aspart 1 - 9 unit 12/15/19 21:58 12/18/19 08:04 Novolog SUBQ 1 unit 0800,1200,1700,2100 LESLY Administration Protocol Insulin Glargine 10 unit 12/18/19 09:00 12/18/19 08:06 Lantus Solostar SUBQ 10 unit DAILY LESLY Administration Lactobacillus Rhamnosus 1 cap 12/15/19 09:00 12/18/19 08:03 Culturelle PO 1 cap DAILY LESLY Administration Losartan Potassium 25 mg 12/15/19 09:00 12/18/19 08:03 Cozaar PO 25 mg DAILY LESLY Administration Pantoprazole Sodium 40 mg 12/15/19 07:00 12/18/19 06:24 Protonix PO 40 mg QDAC LESLY Administration Polyethylene Glycol 17 gm 12/16/19 09:00 12/18/19 08:05 Miralax PO Not Given DAILY LESLY Sodium Chloride 10 ml 12/15/19 01:00 12/18/19 08:09 Normal Saline Flush 0.9% IVP 10 ml 0100,0900,1700 LESLY Administration Tolterodine Tartrate 2 mg 12/15/19 09:00 12/18/19 08:03 Detrol La PO 2 mg DAILY LESLY Administration - Lab Result Fish Bone Diagrams: 12/18/19 05:16 12/18/19 05:16 - Additional Planning My Orders: My Active Orders 12/17/19 14:46 oxyCODONE [Roxicodone] 5 mg PO Q6HR PRN 12/18/19 09:00 Insulin Glargine [Lantus Solostar] 10 unit SUBQ DAILY 12/18/19 11:09 Echo Transthoracic Complete [ECHO] Stat 12/19/19 05:00 BMP - BASIC METABOLIC PANEL [CHEM] DAILYLAB CBC - COMP BLD CT W/AUTO DIFF [HEME] DAILYLAB 12/20/19 05:00 BMP - BASIC METABOLIC PANEL [CHEM] DAILYLAB CBC - COMP BLD CT W/AUTO DIFF [HEME] DAILYLAB 12/21/19 05:00 BMP - BASIC METABOLIC PANEL [CHEM] DAILYLAB CBC - COMP BLD CT W/AUTO DIFF [HEME] DAILYLAB 12/22/19 05:00 BMP - BASIC METABOLIC PANEL [CHEM] DAILYLAB CBC - COMP BLD CT W/AUTO DIFF [HEME] DAILYLAB Subjective - Subjective Patient Reports: Other (Patient seen and examined this morning. She was resting comfortably in bed. She had just eaten breakfast. She had an episode of hypoglycemia overnight. She complained of a feeling of hardness on the right julio e of her jaw.This is very tender to palpation. There was no significant redness in the general area. The rest of her history is unremarkable. The patient is Jehovah witness and as a result does not consent to blood transfusions.) Objective Vital Signs: Vital Signs - 24 hr 12/17/19 12/17/19 12/17/19 15:04 15:41 19:03 Temperature 36.5 C 36.5 C Heart Rate 66 66 Heart Rate [ 72 Brachial] Respiratory 18 20 14 Rate Blood Pressure 152/68 H [Right Brachial artery] O2 Saturation 96 92 12/17/19 12/18/19 12/18/19 23:32 07:21 07:50 Temperature 36.5 C 36.3 C L Heart Rate 81 Heart Rate [ 66 84 Brachial] Respiratory 20 16 18 Rate Blood Pressure 157/79 H 152/81 H [Right Brachial artery] O2 Saturation 94 95 Oxygen O2 Source Room air I&O (Last 24 Hrs): Intake and Output Totals x24h 12/16/19 12/17/19 12/18/19 23:59 23:59 23:59 Intake Total 4900 5083.750 2927.917 Output Total 350 Balance 4900 4733.750 2927.917 General: Alert, Oriented x3, Cooperative, Moderate distress HEENT: Atraumatic, PERRLA, EOMI, Other (Tenderness on right side of chin/jaw) Neck: No JVD Neuro: Alert, Non Focal, Oriented Times 3 Cardiovascular: Regular rate, Normal S1, Normal S2 Respiratory: Chest non-tender, No respiratory distress, Breath sounds nml Abdomen: Normal bowel sounds, Soft, No tenderness Extremities: No clubbing, No cyanosis, No edema Skin: No rashes - Results Results: Laboratory Results WBC 3.5 x10^3/uL (4.8-10.8) L 12/18/19 05:16 RBC 4.16 10^6/uL (4.20-5.40) L 12/18/19 05:16 Hgb 12.8 g/dL (12.0-16.0) 12/18/19 05:16 Hct 38.6 % (37.0-47.0) 12/18/19 05:16 MCV 92.8 fL (81.0-99.0) 12/18/19 05:16 MCH 30.8 pg (27.0-31.0) 12/18/19 05:16 MCHC 33.2 g/dL (32.0-36.0) 12/18/19 05:16 RDW 13.1 % (12.0-15.0) 12/18/19 05:16 Plt Count 161 10^3/uL (130-450) 12/18/19 05:16 MPV 11.2 fL (7.9-10.8) H 12/18/19 05:16 Neut # (Auto) 1.6 10^3/uL (1.5-6.6) 12/18/19 05:16 Lymph # (Auto) 1.4 10^3/uL (1.5-3.5) L 12/18/19 05:16 [place] # (Auto) 0.3 10^3/uL (0.0-1.0) 12/18/19 05:16 Eos # (Auto) 0.1 10^3/uL (0.0-0.7) 12/18/19 05:16 Baso # (Auto) 0.0 10^3/uL (0.0-0.1) 12/18/19 05:16 Absolute Nucleated RBC 0.00 x10^3/uL 12/18/19 05:16 Nucleated RBC % 0.0 /100WBC 12/18/19 05:16 Sodium 140 mmol/L (135-145) 12/18/19 05:16 Potassium 3.7 mmol/L (3.5-5.0) 12/18/19 05:16 Chloride 110 mmol/L (101-111) 12/18/19 05:16 Carbon Dioxide 24 mmol/L (21-32) 12/18/19 05:16 Anion Gap 6.0 (6-13) 12/18/19 05:16 BUN 12 mg/dL (6-20) 12/18/19 05:16 Creatinine 1.0 mg/dL (0.4-1.0) 12/18/19 05:16 Estimated GFR (MDRD) 53 (>89) L 12/18/19 05:16 Glucose 69 mg/dL (70-100) L 12/18/19 05:16 POC Whole Bld Glucose 177 mg/dL (70 - 100) H 12/18/19 11:33 Glycated Hemoglobin 10.7 % (4.6-6.2) H 12/14/19 19:38 Estim Average Glucose 260 (70-100) H 12/14/19 19:38 Calcium 8.1 mg/dL (8.5-10.3) L 12/18/19 05:16 ABX Reporting Has patient been on IV antibiotics over the past 48 hours?: Yes
[2019-12-18] MEDS: oxyCODONE 5 MG TABLET PO PRN ×2 (13:05→20:34)
[2019-12-18] MEDS: ATORVASTATIN 40 MG TABLET PO SCH (20:34)
[2019-12-18] MEDS: GABAPENTIN 300 MG CAPSULE PO SCH (20:34)
[2019-12-19 04:59] LABS: BASOPHILS % (AUTO) 0.5 %; EOSINOPHILS # (AUTO) 0.1 10^3/uL (0.0-0.7); EOSINOPHILS % (AUTO) 2.1 %; LYMPHOCYTES # (AUTO) 1.6 10^3/uL (1.5-3.5); LYMPHOCYTES % (AUTO) 37.4 %; MEAN CORPUSCULAR HEMOGLOBIN 29.5 pg (27.0-31.0); MEAN CORPUSCULAR HGB CONC 32.6 g/dL (32.0-36.0); MEAN CORPUSCULAR VOLUME 90.4 fL (81.0-99.0); MEAN PLATELET VOLUME 10.9 fL (7.9-10.8); MONOCYTES # (AUTO) 0.4 10^3/uL (0.0-1.0); MONOCYTES % (AUTO) 9.6 %; NEUTROPHILS # (AUTO) 2.2 10^3/uL (1.5-6.6); NEUTROPHILS % (AUTO) 50.2 %; PLT - PLATELET COUNT 155 10^3/uL (130-450); RED BLOOD COUNT 4.07 10^6/uL (4.20-5.40); RED CELL DISTRIBUTION WIDTH 13.2 % (12.0-15.0); WHITE BLOOD COUNT 4.4 x10^3/uL (4.8-10.8)
[2019-12-19 05:08] LABS: CALCIUM 8.2 mg/dL (8.5-10.3); CREATININE 1.1 mg/dL (0.4-1.0)
[2019-12-19] MEDS: CLINDAMYCIN 600 MG/50 ML 50 ML IV SCH ×3 (06:04→19:26)
[2019-12-19] MEDS: SODIUM CHLORIDE 0.9% 1,000 ML IV SCH (06:04)
[2019-12-19] MEDS: INSULIN REGULAR HUMAN 300 UNIT/3 ML VIAL SUBQ SCH ×3 (06:59→19:05)
[2019-12-19] MEDS: PANTOPRAZOLE 40 MG TABLET PO SCH (07:00)
[2019-12-19] MEDS: FORMOTEROL FUMARATE NEB 20 MCG/2 ML INH SCH ×2 (07:23→20:39)
[2019-12-19] MEDS: IPRATROPIUM/ALBUTEROL 3 ML NEB INH PRN (07:23)
[2019-12-19] MEDS: BUDESONIDE 0.5 MG/2 ML NEB INH SCH ×2 (07:23→20:39)
--- NOTE | 2019-12-19 07:36 | ANESTHESIA ---
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 - Procedure ORIF Mandible, implant removal Vital Signs: Temp Pulse Resp BP Pulse Ox 36.9 C 86 20 148/87 H 92 12/19/19 00:00 12/19/19 00:00 12/19/19 00:00 12/19/19 00:00 12/19/19 00:00 Height 5 ft 5 in Weight (kg) 76.5 kg Body Mass Index 26.0 - Is Patient ?: No - Lab Results Current Lab Results: Laboratory Tests 12/19/19 04:45: Sodium 138, Potassium 3.9, Chloride 110, Carbon Dioxide 22, An ion Gap 6.0, BUN 12, Creatinine 1.1 H, Estimated GFR (MDRD) 47 L, Glucose 143 H, Calcium 8.2 L 12/19/19 04:45: WBC 4.4 L, RBC 4.07 L, Hgb 12.0, Hct 36.8 L, MCV 90.4, MCH 29.5, MCHC 32.6, RDW 13.2, Plt Count 155, MPV 10.9 H, Neut # (Auto) 2.2, Lymph # (Auto) 1.6, [place] # (Auto) 0.4, Eos # (Auto) 0.1, Baso # (Auto) 0.0, Absolute Nucleated RBC 0.00, Nucleated RBC % 0.0 12/18/19 20:40: POC Whole Bld Glucose 169 H 12/18/19 16:40: POC Whole Bld Glucose 128 H 12/18/19 11:33: POC Whole Bld Glucose 177 H 12/18/19 07:58: POC Whole Bld Glucose 151 H 12/18/19 06:52: POC Whole Bld Glucose 74 12/18/19 05:16: Sodium 140, Potassium 3.7, Chloride 110, Carbon Dioxide 24, Anion Gap 6.0, BUN 12, Creatinine 1.0, Estimated GFR (MDRD) 53 L, Glucose 69 L, Calcium 8.1 L 12/18/19 05:16: WBC 3.5 L, RBC 4.16 L, Hgb 12.8, Hct 38.6, MCV 92.8, MCH 30.8, MCHC 33.2, RDW 13.1, Plt Count 161, MPV 11.2 H, Neut # (Auto) 1.6, Lymph # (Auto) 1.4 L, [place] # (Auto) 0.3, Eos # (Auto) 0.1, Baso # (Auto) 0.0, Absolute Nucleated RBC 0.00, Nucleated RBC % 0.0 12/17/19 20:32: POC Whole Bld Glucose 105 H 12/17/19 16:33: POC Whole Bld Glucose 106 H 12/17/19 11:52: POC Whole Bld Glucose 194 H 12/17/19 10:00: POC Whole Bld Glucose 205 H 12/17/19 07:55: POC Whole Bld Glucose 72 12/17/19 05:13: Sodium 141, Potassium 3.9, Chloride 108, Carbon Dioxide 25, Anion Gap 8.0, BUN 16, Creatinine 1.2 H, Estimated GFR (MDRD) 43 L, Glucose 71, Calcium 8.3 L 12/17/19 05:13: WBC 3.3 L, RBC 4.17 L, Hgb 12.4, Hct 38.7, MCV 92.8, MCH 29.7, MCHC 32.0, RDW 13.1, Plt Count 153, MPV 11.1 H 12/16/19 21:07: POC Whole Bld Glucose 145 H 12/16/19 16:41: POC Whole Bld Glucose 213 H 12/16/19 11:04: POC Whole Bld Glucose 88 12/16/19 07:22: POC Whole Bld Glucose 125 H 12/16/19 05:44: Sodium 139, Potassium 3.7, Chloride 107, Carbon Dioxide 26, Anion Gap 6.0, BUN 17, Creatinine 1.2 H, Estimated GFR (MDRD) 43 L, Glucose 120 H, Calcium 8.2 L 12/16/19 05:44: WBC 4.3 L, RBC 4.49, Hgb 13.9, Hct 42.2, MCV 94.0, MCH 31.0, MCHC 32.9, RDW 12.9, Plt Count 165, MPV 10.8 12/15/19 21:10: POC Whole Bld Glucose 199 H 12/15/19 16:45: POC Whole Bld Glucose 76 12/15/19 11:35: POC Whole Bld Glucose 143 H 12/15/19 05:45: Sodium 138, Potassium 3.9, Chloride 103, Carbon Dioxide 26, Anion Gap 9.0, BUN 24 H, Creatinine 1.3 H, Estimated GFR (MDRD) 39 L, Glucose 156 H, Calcium 9.0 12/15/19 05:45: WBC 5.3, RBC 4.82, Hgb 14.8, Hct 44.8, MCV 92.9, MCH 30.7, MCHC 33.0, RDW 12.8, Plt Count 191, MPV 11.0 H 12/15/19 05:43: POC Whole Bld Glucose 155 H 12/14/19 20:36: POC Whole Bld Glucose 309 H 12/14/19 20:09: Sodium 135, Potassium 3.8, Chloride 98 L, Carbon Dioxide 28, An ion Gap 9.0, BUN 28 H, Creatinine 1.6 H, Estimated GFR (MDRD) 31 L, Glucose 267 H, Calcium 9.1 12/14/19 19:38: WBC 6.9, RBC 4.95, Hgb 15.2, Hct 45.5, MCV 91.9, MCH 30.7, MCHC 33.4, RDW 12.6, Plt Count 191, MPV 11.0 H, Neut # (Auto) 4.2, Lymph # (Auto) 1.8, [place] # (Auto) 0.8, Eos # (Auto) 0.1, Baso # (Auto) 0.1, Absolute Nucleated RBC 0.00, Nucleated RBC % 0.0 12/14/19 19:38: Glycated Hemoglobin 10.7 H, Estim Average Glucose 260 H Fish Bones: 12/19/19 04:45 12/19/19 04:45 Home Medications and Allergies Home Medications: Ambulatory Orders Albuterol Sulfate [Proair Hfa Inhaler] 1 puffs INH Q4H PRN 12/14/19 Aspirin [Aspirin EC] 81 mg PO DAILY 12/14/19 Atorvastatin [Lipitor] 40 mg PO DAILY 12/14/19 Clindamycin HCl [Clindamycin 300MG CAP] 300 mg PO TID 12/14/19 Fluticasone/Salmeterol [Advair 250-50 Diskus] 1 puffs INH BID 12/14/19 Gabapentin 900 mg PO DAILY PM 12/14/19 Insulin Aspart [NovoLOG] 10 units INJ TIDWM 12/14/19 Insulin Glargine [Lantus Solostar] 28 units INJ DAILY 12/14/19 Omeprazole 20 mg PO DAILY 12/14/19 Telmisartan [Micardis] 10 mg PO DAILY 12/14/19 Tiotropium [place] [Spiriva Respimat] 4 gm IH DAILY 12/14/19 Tolterodine Tartrate [Detrol LA] 2 mg PO DAILY 12/14/19 Active Medications Acetaminophen (Tylenol) 650 mg PO Q4HR PRN PRN Reason: Pain 1 to 4 Last Admin: 12/17/19 20:39 Dose: 650 mg Albuterol/Ipratropium (Duoneb) 3 ml INH Q4HR PRN PRN Reason: Wheezing Last Admin: 12/19/19 07:23 Dose: 3 ml Atorvastatin Calcium (Lipitor) 40 mg PO QPM [facility] Last Admin: 12/18/19 20:34 Dose: 40 mg Budesonide (Pulmicort) 0.5 mg INH RTBID [facility] Last Admin: 12/19/19 07:23 Dose: 0.5 mg Carboxymethylcellulose (Refresh 1% Ophth Drops) 1 drops EACHEYE PRN PRN PRN Reason: Dry Eye Docusate Sodium (Colace 250mg Capsule) 250 - 500 mg PO BID [facility] Last Admin: 12/18/19 20:39 Dose: Not Given Enoxaparin Sodium (Lovenox) 40 mg SUBQ DAILY [facility] Last Admin: 12/18/19 08:03 Dose: 40 mg Formoterol Fumarate (Perforomist) 20 mcg INH RTBID [facility] Last Admin: 12/19/19 07:23 Dose: 20 mcg Gabapentin (Neurontin) 900 mg PO QPM [facility] Last Admin: 12/18/19 20:34 Dose: 900 mg Clindamycin Phosphate (Cleocin 600 Mg/50 Ml) 50 mls @ 100 mls/hr IV Q6HR [facility] Last Infusion: 12/19/19 06:44 Dose: Infused Sodium Chloride (Normal Saline 0.9%) 1,000 mls @ 125 mls/hr IV .Q8H [facility] Last Admin: 12/19/19 06:04 Dose: 125 mls/hr Insulin Glargine (Lantus Solostar) 10 unit SUBQ DAILY [facility] Last Admin: 12/18/19 08:06 Dose: 10 unit Insulin Human Regular (Humulin R) 1 - 9 unit SUBQ Q6HR [facility]; Protocol Last Admin: 12/19/19 06:59 Dose: 1 unit Lactobacillus Rhamnosus (Culturelle) 1 cap PO DAILY [facility] Last Admin: 12/18/19 08:03 Dose: 1 cap Losartan Potassium (Cozaar) 25 mg PO DAILY [facility] Last Admin: 12/18/19 08:03 Dose: 25 mg Mineral Oil (Cavilon) 1 applic TOP PRN PRN PRN Reason: Skin Care Multi-Ingredient Ointment (Zinc Oxide) 1 applic TOP PRN PRN PRN Reason: Skin Care Oxycodone HCl (Roxicodone) 5 mg PO Q6HR PRN PRN Reason: PAIN Last Admin: 12/18/19 20:34 Dose: 5 mg Pantoprazole Sodium (Protonix) 40 mg PO QDAC [facility] Last Admin: 12/19/19 07:00 Dose: 40 mg Polyethylene Glycol (Miralax) 17 gm PO DAILY [facility] Last Admin: 12/18/19 08:05 Dose: Not Given Sodium Chloride (Normal Saline Flush 0.9%) 10 ml IVP 0100,0900,1700 [facility] Last Admin: 12/18/19 23:57 Dose: Not Given Sodium Chloride (Normal Saline Flush 0.9%) 10 ml IVP PRN PRN PRN Reason: NEEDED PER PROVIDER ORDERS Throat Lozenges (Cepacol) 1 lozenge MM Q2HR PRN PRN Reason: Throat pain Tolterodine Tartrate (Detrol La) 2 mg PO DAILY [facility] Last Admin: 12/18/19 08:03 Dose: 2 mg Albuterol Sulfate [Proair Hfa Inhaler] 1 puffs INH Q4H PRN 12/14/19 Aspirin [Aspirin EC] 81 mg PO DAILY 12/14/19 Atorvastatin [Lipitor] 40 mg PO DAILY 12/14/19 Clindamycin HCl [Clindamycin 300MG CAP] 300 mg PO TID 12/14/19 Fluticasone/Salmeterol [Advair 250-50 Diskus] 1 puffs INH BID 12/14/19 Gabapentin 900 mg PO DAILY PM 12/14/19 Insulin Aspart [NovoLOG] 10 units INJ TIDWM 12/14/19 Insulin Glargine [Lantus Solostar] 28 units INJ DAILY 12/14/19 Omeprazole 20 mg PO DAILY 12/14/19 Telmisartan [Micardis] 10 mg PO DAILY 12/14/19 Tiotropium [place] [Spiriva Respimat] 4 gm IH DAILY 12/14/19 Tolterodine Tartrate [Detrol LA] 2 mg PO DAILY 12/14/19 Allergies/Adverse Reactions: Allergies Allergy/AdvReac Type Severity Reaction Status Date / Time lisinopril Allergy Unknown Verified 12/14/19 20:06 mushroom Allergy Rash Verified 12/15/19 17:51 Penicillins Allergy Unknown Verified 12/14/19 20:06 shellfish derived Allergy Hives Verified 12/14/19 20:06 Anes History & Medical History - Anesthetic History Anesthesia Complications: reports: No previous complications Family history of Anesthesia Complications: Denies Family history of Malignant Hyperthermia: Denies - Medical History Cardiovascular: reports: High cholesterol, Murmur (echo demonstrates mild LVH, mild MR and TR, EF 50-55%) Pulmonary: reports: COPD (Quit smoking ) Gastrointestinal: reports: GERD Urinary: reports: Incontinence, Renal insuffiency Neuro: reports: Peripheral neuropathy Musculoskeletal: reports: Rheumatoid arthritis Endocrine/Autoimmune: reports: Type 2 diabetes Blood Disorders: reports: None Skin: reports: None Smoking Status: Former smoker Other Past Medical History: Dizzy spells - Surgical History Eyes Ears Nose Throat (EENT): Cataracts Gynecologic: Hysterectomy, Oophrectomy Orthopedic: Knee replacement Exam General: Alert, Oriented x3, Cooperative Dental: Other (edentulous. implants in lower front center.) Neck Mobility: Normal Mallampati classification: II Thyromental Distance: 4-6 cm (submental swelling noted. very tender to touch.) Respiratory: Decreased breath sounds Cardiovascular: Regular rate Mental/Cognitive Status: Alert/Oriented X3 Plan Anesthesia Type: General Consent for Procedure(s) Verified and Reviewed: Yes Code Status: Attempt Resuscitation (Patient refuses transfusion of blood products due to mu-ism beliefs (Alevism)) ASA classification: 3-Severe systemic disease Is this case an emergency?: No
[2019-12-19] MEDS ORDERED: BACITRACIN ZINC OINT 1 PACKET TOP ONE (07:46)
[2019-12-19] MEDS ORDERED: EPINEPHrine 1 MG/ML AMP ONE (07:47)
[2019-12-19] MEDS ORDERED: BUPIVACAINE 0.25% PF 30 ML VIAL ONE (07:48)
[2019-12-19] MEDS ORDERED: SODIUM CHLORIDE 0.9% 0 ML ONE (07:48)
[2019-12-19] MEDS ORDERED: LIDOCAINE 2%-EPI 1:100000 20 ML MDV ONE (07:49)
[2019-12-19] MEDS ORDERED: CHLORHEXIDINE GLUCONATE 15 ML UDC PO ONE (07:51)
[2019-12-19] MEDS ORDERED: SODIUM CHLORIDE 0.9% 1,000 ML IV SCH ×2 (07:59→12:00)
[2019-12-19] MEDS ORDERED: ALBUTEROL NEB 2.5 MG/3 ML INH PRN (08:03)
[2019-12-19] MEDS ORDERED: LACTATED RINGERS 1,000 ML IV ONE ×2 (08:15→09:29)
[2019-12-19] MEDS ORDERED: TELMISARTAN 10 MG PO SCH (09:00)
[2019-12-19] MEDS ORDERED: LIDOCAINE 2%-EPI 1:100000 20 ML MDV SUBQ ONE ×2 (09:12)
[2019-12-19] MEDS ORDERED: SUGAMMADEX 200 MG/2 ML VIAL IVP ONE ×2 (10:38→17:46)
[2019-12-19] MEDS: ENOXAPARIN 40 MG/0.4 ML SYRINGE SUBQ SCH (12:09)
[2019-12-19] MEDS: SODIUM CHLORIDE FLUSH 0.9% 10 ML SYRINGE IVP SCH ×2 (12:11→15:57)
[2019-12-19] MEDS: polyethylene glycoL 3350 17 GM PACKET PO SCH ×2 (12:28→12:44)
[2019-12-19] MEDS: DOCUSATE SODIUM 250 MG CAPSULE PO SCH ×3 (12:28→20:46)
[2019-12-19] MEDS: LOSARTAN 50 MG TABLET PO SCH (12:28)
[2019-12-19] MEDS: TOLTERODINE LA 2 MG CAPSULE PO SCH (12:28)
[2019-12-19] MEDS: LACTOBACILLUS RHAMNOSUS GG CAPSULE PO SCH (12:28)
[2019-12-19] MEDS: ASPIRIN EC 81 MG TABLET PO SCH (12:28)
--- NOTE | 2019-12-19 12:29 | PROVIDER PROGRESS NOTE ---
Subjective - Prog Note Date Prog Note Date: 12/19/19 Prog Note Time: 12:03 - Subjective Subjective: Procedure performed: Removal of failed implant #[id number] Deep bone biopsy of the anterior mandible Incision and Drainage of the submental space Stabilization of mandible fracture with external pin fixation Findings: The right mandibular parasymphysis was fractured and mobile Plan: The mandible was stabilized with external pin fixation. She will have d efinitive reconstruction with a custom reconstruction plate in about seven days, pending fabrication of the plate. - Dressing changes to pins BID. Remove existing dressing. Clean wound with saline. Moisten with bacitracin. Place fresh vaseline gauze. - Incentive spirometry daily - ambulate TID. Out of bed to chair daily. - lovenox ok from OM standpoint - roll pt and examine back for decubitus ulcers daily - Continue IV abx. - Soft C-collar to avoid skin trauma from ex-fix. - Nutrition consult. For the next 8 weeks she will be on a full liquid diet. Afterwards she will be on a pureed diet indefinitely. Good nutrition and good glucose control are necessary for good healing from upcoming mandibular reconstruction. - Chlorhexidine mouthrinse BID - Sutures in mouth will resorb - Elevate HOB 30 degrees - Follow culture results Objective - Vital Signs/Intake & Output Vital Signs: Vital Signs x48h Temp Pulse Pulse Resp BP BP Pulse Ox 12/19/19 11:38 37 C 87 20 154/70 H 91 L 12/19/19 11:20 36.7 C 89 12 149/72 H 92 12/19/19 11:15 36.6 C 90 12 147/78 H 93 12/19/19 11:10 36.6 C 93 12 146/69 H 90 L 12/19/19 11:05 36.6 C 97 12 148/71 H 92 12/19/19 08:00 37.3 C 81 18 171/78 H 92 Intake & Output: Intake & Output 12/16/19 12/17/19 12/18/19 12/19/19 23:59 23:59 23:59 23:59 Intake Total 4900 5083.750 5010.417 925.0 Output Total 350 700 Balance 4900 4733.750 4310.417 925.0 - Lab Results Fish Bones: 12/19/19 04:45 12/19/19 04:45 Other Labs: Lab Results x24hrs 12/19/19 12/19/19 12/19/19 Range/Units 11:51 04:45 04:45 WBC 4.4 L (4.8-10.8) x10^3/uL RBC 4.07 L (4.20-5.40) 10^6/uL Hgb 12.0 (12.0-16.0) g/dL Hct 36.8 L (37.0-47.0) % MCV 90.4 (81.0-99.0) fL MCH 29.5 (27.0-31.0) pg MCHC 32.6 (32.0-36.0) g/dL RDW 13.2 (12.0-15.0) % Plt Count 155 (130-450) 10^3/uL MPV 10.9 H (7.9-10.8) fL Neut # (Auto) 2.2 (1.5-6.6) 10^3/uL Lymph # (Auto) 1.6 (1.5-3.5) 10^3/uL [place] # (Auto) 0.4 (0.0-1.0) 10^3/uL Eos # (Auto) 0.1 (0.0-0.7) 10^3/uL Baso # (Auto) 0.0 (0.0-0.1) 10^3/uL Absolute Nucleated RBC 0.00 x10^3/uL Nucleated RBC % 0.0 /100WBC Sodium 138 (135-145) mmol/L Potassium 3.9 (3.5-5.0) mmol/L Chloride 110 (101-111) mmol/L Carbon Dioxide 22 (21-32) mmol/L Anion Gap 6.0 (6-13) BUN 12 (6-20) mg/dL Creatinine 1.1 H (0.4-1.0) mg/dL Estimated GFR (MDRD) 47 L (>89) Glucose 143 H (70-100) mg/dL POC Whole Bld Glucose 137 H (70 - 100) mg/dL Calcium 8.2 L (8.5-10.3) mg/dL 12/18/19 12/18/19 Range/Units 20:40 16:40 WBC (4.8-10.8) x10^3/uL RBC (4.20-5.40) 10^6/uL Hgb (12.0-16.0) g/dL Hct (37.0-47.0) % MCV (81.0-99.0) fL MCH (27.0-31.0) pg MCHC (32.0-36.0) g/dL RDW (12.0-15.0) % Plt Count (130-450) 10^3/uL MPV (7.9-10.8) fL Neut # (Auto) (1.5-6.6) 10^3/uL Lymph # (Auto) (1.5-3.5) 10^3/uL [place] # (Auto) (0.0-1.0) 10^3/uL Eos # (Auto) (0.0-0.7) 10^3/uL Baso # (Auto) (0.0-0.1) 10^3/uL Absolute Nucleated RBC x10^3/uL Nucleated RBC % /100WBC Sodium (135-145) mmol/L Potassium (3.5-5.0) mmol/L Chloride (101-111) mmol/L Carbon Dioxide (21-32) mmol/L Anion Gap (6-13) BUN (6-20) mg/dL Creatinine (0.4-1.0) mg/dL Estimated GFR (MDRD) (>89) Glucose (70-100) mg/dL POC Whole Bld Glucose 169 H 128 H (70 - 100) mg/dL Calcium (8.5-10.3) mg/dL
[2019-12-19] MEDS: INSULIN GLARGINE 300 UNIT/3 ML PEN SUBQ SCH (12:45)
--- NOTE | 2019-12-19 13:32 | PROVIDER PROGRESS NOTE ---
Subjective - Prog Note Date Prog Note Date: 12/19/19 - Subjective Pt reports feeling: Improved Subjective: pt is just s/p of Removal of failed implant, Deep bone biopsy, Incision and Drainage of infected submental space, Stabilization of mandible fracture by surgeon. Per surgeon's recommendation, pt will be treated in hospital about 7 days until next procedure, pt will have definitive reconstruction with a custom reconstruction plate. pt denies fever, chill, chest pain. Current Medications - Current Medications Current Medications: Active Medications Acetaminophen (Tylenol) 650 mg PO Q4HR PRN PRN Reason: Pain 1 to 4 Last Admin: 12/17/19 20:39 Dose: 650 mg Albuterol () 2.5 mg INH RTQ4H PRN PRN Reason: Wheezing Albuterol/Ipratropium (Duoneb) 3 ml INH Q4HR PRN PRN Reason: Wheezing Last Admin: 12/19/19 07:23 Dose: 3 ml Aspirin (Ecotrin) 81 mg PO DAILY [facility] Last Admin: 12/19/19 12:28 Dose: 81 mg Atorvastatin Calcium (Lipitor) 40 mg PO QPM [facility] Last Admin: 12/18/19 20:34 Dose: 40 mg Budesonide (Pulmicort) 0.5 mg INH RTBID [facility] Last Admin: 12/19/19 07:23 Dose: 0.5 mg Carboxymethylcellulose (Refresh 1% Ophth Drops) 1 drops EACHEYE PRN PRN PRN Reason: Dry Eye Chlorhexidine Gluconate (Peridex) 15 ml PO BID [facility] Docusate Sodium (Colace 250mg Capsule) 250 - 500 mg PO BID [facility] Last Admin: 12/19/19 12:44 Dose: Not Given Enoxaparin Sodium (Lovenox) 40 mg SUBQ DAILY [facility] Last Admin: 12/19/19 12:09 Dose: 40 mg Formoterol Fumarate (Perforomist) 20 mcg INH RTBID [facility] Last Admin: 12/19/19 07:23 Dose: 20 mcg Gabapentin (Neurontin) 900 mg PO QPM [facility] Last Admin: 12/18/19 20:34 Dose: 900 mg Clindamycin Phosphate (Cleocin 600 Mg/50 Ml) 50 mls @ 100 mls/hr IV Q6HR [facility] Last Infusion: 12/19/19 13:05 Dose: Infused Sodium Chloride (Normal Saline 0.9%) 1,000 mls @ 75 mls/hr IV .[id number] [facility] Stop: 12/20/19 01:19 Last Admin: 12/19/19 12:40 Dose: 75 mls/hr Insulin Glargine (Lantus Solostar) 10 unit SUBQ DAILY [facility] Last Admin: 12/19/19 12:45 Dose: 10 unit Insulin Human Regular (Humulin R) 1 - 9 unit SUBQ Q6HR [facility]; Protocol Last Admin: 12/19/19 12:42 Dose: Not Given Lactobacillus Rhamnosus (Culturelle) 1 cap PO DAILY [facility] Last Admin: 12/19/19 12:28 Dose: 1 cap Losartan Potassium (Cozaar) 25 mg PO DAILY [facility] Last Admin: 12/19/19 12:28 Dose: 25 mg Mineral Oil (Cavilon) 1 applic TOP PRN PRN PRN Reason: Skin Care Multi-Ingredient Ointment (Zinc Oxide) 1 applic TOP PRN PRN PRN Reason: Skin Care Oxycodone HCl (Roxicodone) 5 mg PO Q6HR PRN PRN Reason: PAIN Last Admin: 12/18/19 20:34 Dose: 5 mg Pantoprazole Sodium (Protonix) 40 mg PO QDAC [facility] Last Admin: 12/19/19 07:00 Dose: 40 mg Polyethylene Glycol (Miralax) 17 gm PO DAILY [facility] Last Admin: 12/19/19 12:44 Dose: Not Given Sodium Chloride (Normal Saline Flush 0.9%) 10 ml IVP 0100,0900,1700 [facility] Last Admin: 12/19/19 12:11 Dose: 10 ml Sodium Chloride (Normal Saline Flush 0.9%) 10 ml IVP PRN PRN PRN Reason: NEEDED PER PROVIDER ORDERS Throat Lozenges (Cepacol) 1 lozenge MM Q2HR PRN PRN Reason: Throat pain Tolterodine Tartrate (Detrol La) 2 mg PO DAILY [facility] Last Admin: 12/19/19 12:28 Dose: 2 mg Albuterol Sulfate [Proair Hfa Inhaler] 1 puffs INH Q4H PRN 12/14/19 Aspirin [Aspirin EC] 81 mg PO DAILY 12/14/19 Atorvastatin [Lipitor] 40 mg PO DAILY 12/14/19 Clindamycin HCl [Clindamycin 300MG CAP] 300 mg PO TID 12/14/19 Fluticasone/Salmeterol [Advair 250-50 Diskus] 1 puffs INH BID 12/14/19 Gabapentin 900 mg PO DAILY PM 12/14/19 Insulin Aspart [NovoLOG] 10 units INJ TIDWM 12/14/19 Insulin Glargine [Lantus Solostar] 28 units INJ DAILY 12/14/19 Omeprazole 20 mg PO DAILY 12/14/19 Telmisartan [Micardis] 10 mg PO DAILY 12/14/19 Tiotropium [place] [Spiriva Respimat] 4 gm IH DAILY 12/14/19 Tolterodine Tartrate [Detrol LA] 2 mg PO DAILY 12/14/19 Objective - Vital Signs/Intake & Output Vital Signs: Vital Signs x48h Temp Pulse Pulse Resp BP BP Pulse Ox 12/19/19 11:38 37 C 87 20 154/70 H 91 L 12/19/19 11:20 36.7 C 89 12 149/72 H 92 12/19/19 11:15 36.6 C 90 12 147/78 H 93 12/19/19 11:10 36.6 C 93 12 146/69 H 90 L 12/19/19 11:05 36.6 C 97 12 148/71 H 92 12/19/19 08:00 37.3 C 81 18 171/78 H 92 Intake & Output: Intake & Output 12/16/19 12/17/19 12/18/19 12/19/19 23:59 23:59 23:59 23:59 Intake Total 4900 5083.750 5010.417 2712.5 Output Total 350 700 Balance 4900 4733.750 4310.417 2712.5 - Objective General Appearance: positive: No acute distress, Alert. negative: Lethargic Eyes Bilateral: positive: Normal inspection, PERRL, No lid inflammation ENT: positive: No signs of dehydration. negative: ENT inspection nml, Dry mucous membranes Neck: positive: Trachea midline. negative: Thyromegaly, Stiff neck, Tracheal deviation Respiratory: positive: Chest non-tender, No respiratory distress. negative: Breath sounds nml, Wheezes, Rales, Rhonchi Cardiovascular: positive: Regular rate & rhythm, No murmur, No gallop. negative: Irregularly irregular, Extrasystoles, Tachycardia, Bradycardia, Systolic murmur, Diastolic murmur Peripheral Pulses: 2+ Radial (R), 2+ Radial (L) Abdomen: positive: Non-tender, No organomegaly, Nml bowel sounds, No distention. negative: Tenderness, Guarding, Rebound Back: positive: Nml inspection. negative: CVA tenderness (R), CVA tenderness (L) Skin: positive: Warm, Dry. negative: Cyanosis, Diaphoresis, Pallor Extremities: positive: Non-tender, Full ROM, Nml appearance. negative: Calf tenderness, Esdras's sign/cords Neurologic/Psychiatric: positive: Oriented x3, Motor nml, Sensation nml. negative: Weakness, Sensory loss, Facial droop, Slurred/abnml speech, Depressed mood/affect - Lab Results Fish Bones: 12/19/19 04:45 12/19/19 04:45 Other Labs: Lab Results x24hrs 12/19/19 12/19/19 12/19/19 Range/Units 11:51 04:45 04:45 WBC 4.4 L (4.8-10.8) x10^3/uL RBC 4.07 L (4.20-5.40) 10^6/uL Hgb 12.0 (12.0-16.0) g/dL Hct 36.8 L (37.0-47.0) % MCV 90.4 (81.0-99.0) fL MCH 29.5 (27.0-31.0) pg MCHC 32.6 (32.0-36.0) g/dL RDW 13.2 (12.0-15.0) % Plt Count 155 (130-450) 10^3/uL MPV 10.9 H (7.9-10.8) fL Neut # (Auto) 2.2 (1.5-6.6) 10^3/uL Lymph # (Auto) 1.6 (1.5-3.5) 10^3/uL [place] # (Auto) 0.4 (0.0-1.0) 10^3/uL Eos # (Auto) 0.1 (0.0-0.7) 10^3/uL Baso # (Auto) 0.0 (0.0-0.1) 10^3/uL Absolute Nucleated RBC 0.00 x10^3/uL Nucleated RBC % 0.0 /100WBC Sodium 138 (135-145) mmol/L Potassium 3.9 (3.5-5.0) mmol/L Chloride 110 (101-111) mmol/L Carbon Dioxide 22 (21-32) mmol/L Anion Gap 6.0 (6-13) BUN 12 (6-20) mg/dL Creatinine 1.1 H (0.4-1.0) mg/dL Estimated GFR (MDRD) 47 L (>89) Glucose 143 H (70-100) mg/dL POC Whole Bld Glucose 137 H (70 - 100) mg/dL Calcium 8.2 L (8.5-10.3) mg/dL 12/18/19 12/18/19 Range/Units 20:40 16:40 WBC (4.8-10.8) x10^3/uL RBC (4.20-5.40) 10^6/uL Hgb (12.0-16.0) g/dL Hct (37.0-47.0) % MCV (81.0-99.0) fL MCH (27.0-31.0) pg MCHC (32.0-36.0) g/dL RDW (12.0-15.0) % Plt Count (130-450) 10^3/uL MPV (7.9-10.8) fL Neut # (Auto) (1.5-6.6) 10^3/uL Lymph # (Auto) (1.5-3.5) 10^3/uL [place] # (Auto) (0.0-1.0) 10^3/uL Eos # (Auto) (0.0-0.7) 10^3/uL Baso # (Auto) (0.0-0.1) 10^3/uL Absolute Nucleated RBC x10^3/uL Nucleated RBC % /100WBC Sodium (135-145) mmol/L Potassium (3.5-5.0) mmol/L Chloride (101-111) mmol/L Carbon Dioxide (21-32) mmol/L Anion Gap (6-13) BUN (6-20) mg/dL Creatinine (0.4-1.0) mg/dL Estimated GFR (MDRD) (>89) Glucose (70-100) mg/dL POC Whole Bld Glucose 169 H 128 H (70 - 100) mg/dL Calcium (8.5-10.3) mg/dL ABX Reporting Has patient been on IV antibiotics over the past 48 hours?: Yes Assessment/Plan - Problem List (1) Cellulitis of submental space Impression: 12/19/2019 pt is s/p procedure of I/D from submental space, drainage fluid was send to culture and staining by surgeon continue antibiotics continue gently IVF (2) Mandibular body fracture 12/18 surgeon Removal of failed implant, Deep bone biopsy of the anterior mandible, and Stabilization of mandible fracture with external pin fixation. Per surgeon, pt will have definitive reconstruction with a custom reconstruction plate in about seven days, surgeon recommend pt continue to be treated in hospital until next procedure. continue pain control, and followup surgeon. start with full liquid diet, consult with quality reviewer, incentive spirometer, dressing change per surgeon's instruction, nurse skin care, out of bed and encourage for safely ambulation (3) COPD (chronic obstructive pulmonary disease) Conclusion/Plan: 12/18 pt's sat is slightly reduced. order CXR, will followup continue home medications (or equvalical), pulmocort breath treatment. (4) Type 2 diabetes mellitus 12/18 uncontrolled. pt has 10.7 A1C. start Lantus, and SSI, ACHS, and hypoglycemia protocol (5) Rheumatoid arthritis Conclusion/Plan: stable, continue home meds. 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 (6) Chronic renal disease Conclusion/Plan: 12/18 Improved. she has Baseline GFR 30-35. continue hydration and lab monitor
[2019-12-19] MEDS: oxyCODONE 5 MG TABLET PO PRN (13:56)
[2019-12-19] MEDS: BENZOCAINE/MENTHOL LOZENGE MM PRN ×2 (13:57→15:56)
--- NOTE | 2019-12-19 14:39 | XRAY Report ---
Reason: hyopxia Procedure Date: 12/19/2019 Accession Number: [id number] / [id number] Procedure: XR - Chest 1 View X-Ray CPT Code: 74603 Final Report FULL RESULT: EXAM: CHEST RADIOGRAPHY EXAM DATE: 12/19/2019 11:55 AM. CLINICAL HISTORY: Hyopxia. COMPARISON: CHEST 1 VIEW 12/15/2019 9:45 AM. TECHNIQUE: 1 view. FINDINGS: Lungs/Pleura: Increase interstitial markings chronic. No focal opacities evident. No pleural effusion. No pneumothorax. Mediastinum: Within exam limitations, the cardiomediastinal contour is normal. Other: Metallic linear density projected over right lower neck IMPRESSION: 1. Chronic increased interstitial markings. 2. No focal infiltrate. 3. Metallic linear density projected over right lower neck RADIA
--- NOTE | 2019-12-19 15:32 | OPERATIVE REPORT ---
DATE OF SERVICE: 12/19/2019 Physician: Renny Magdaleno DDS PREOPERATIVE DIAGNOSES 1. 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 2. Submental space cellulitis. 3. Clinical picture of fracture of the right mandibular parasymphysis. POSTOPERATIVE DIAGNOSES 1. 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 2. Submental space cellulitis. 3. Fracture of the right mandibular parasymphysis. PROCEDURE PERFORMED 1. Removal of failed implants #22 and 27. 2. Deep bone biopsy of the anterior mandible. 3. Incision and drainage of the submental space via an extraoral incision. 4. Stabilization of a mandible fracture with external pin fixation. PRIMARY SURGEON: Renny Magdaleno DDS [employer] DEVELOP[employer] CONSULTANT: Ryann. ANESTHESIA TYPE: General anesthesia via oral endotracheal intubation. REGASIFICATION PLANT OPERATOR: TIKA Lehman. SPECIMENS: Cellular specimen from the right anterior mandible. The carlo- implant granulation tissue was removed and submitted to Microbiology for Gram stain, aerobic and anaerobic, fungal culture, and acid fast bacteria. DRAINS, PACKS, CATHETERS: None. Estimated Blood Loss: 20 mL COMPLICATIONS: None. INDICATIONS FOR PROCEDURE: The patient is an 84-year-old female who presented to my office with submental swelling and pain. Clinical and radiographic examination was consistent with failed implant #27. The hard knot right under that implant on the inferior border of the mandible was consistent with a mandible fracture, although radiographically a distinct mandible fracture could not be seen. However, there was high clinical suspicion of mandible fracture, and in the setting of the extreme atrophy of the mandible combined with the patient's submental cellulitis, it was deemed necessary to remove this implant and biopsy the bone in the operating room in the case of a possible fracture. The risks, benefits, and alternatives of this plan were discussed with the patient, including pain, swelling, bleeding, infection, damage to nerves with permanent numbness and/or permanent facial paralysis of the lower jaw, the lip, chin, and tongue and associated structures, facial deformity, poor cosmesis, scarring, need for further surgeries, further fracture of her very unstable mandible, and inability to take adequate p.o. nutrition as a long-term result of the surgery and her injuries. Adequate time was given to answer all questions, and informed consent was obtained. DESCRIPTION OF PROCEDURE: The patient was brought to the main operating room and placed in a supine position on the operating table. General anesthesia was induced by the anesthesia team, and the airway was gently secured with an oral endotracheal tube. The eyes were protected with Tegaderm. All pressure points were padded and checked. The patient was prepped and draped in the standard sterile fashion for facial surgery. A throat pack was placed. A formal timeout was executed. Local anesthesia was achieved with 11 mL of 2% lidocaine with 1:100,000 epinephrine. The mouth was rinsed with Peridex. The first thing that was performed was to section the Hader bar. This was performed with a carbide bur. Once the Hader bar was sectioned, the implant site #27 fell right out without any digital pressure, it just fell out under the tongue. It was removed from the mouth, and then the bur was used to section off the implant at site #22. First a crestal incision was made with a #15 blade, and a full-thickness flap was conservatively elevated to be able to visualize the bone level. The implant was sectioned right off flush with the bone, and the prosthetic screw was removed from the inside completely of the implant. Attention was then directed back to site #27. There was concern that the site was fractured, and it was not desired to put any pressure on the mandible, because if it was not fractured yet, then this could possibly fracture of the mandible. Instead, a conservative buccal full-thickness flap was elevated and, as soon as this was done, a mobile fracture was appreciated. At this stage, the site was then biopsied with a rongeur, removing only a tiny bit of bone and mostly granulation tissue from around the site. The bone for the most part had the appearance of vital bone with a small amount of callus buildup around the actual fracture itself. It was then decided that this fracture needed to be fixed with a reconstruction plate. Ideally, this would be performed with a pre-bent reconstruction plate, and considering this, it was decided to place the patient in external fixation. External pin fixators were used from a [employer] external fixation kit. Two fixation pins were placed in the right mandibular ramus. One fixation pin was placed in the left mandibular ramus, and one fixation pin was placed in the symphysis just to the left of the fracture. The pins were placed in these locations and not more close to the fracture because of the extremely atrophic size of the mandible and for fear of further fracturing the mandible upon placement of fixation pins inside of it. Once the pins were all placed, the fixation hardware was applied, and good stabilization of the patient's fracture was noted. All surgical areas were copiously irrigated and the small intraoral flaps were then reapproximated with 4-0 chromic gut suture. The mouth was rinsed and cleansed free of debris. The throat pack was removed, and care of the patient was returned to the anesthesia team for uneventful extubation. She was recovered in the operating room due to good COVID-19 precautions, and after her recovery was completed in the operating room, she was then transferred directly to the floor from the operating room. TD: 12/19/2019 12:43 ARMOND
[2019-12-19] MEDS: MORPHINE 2 MG/ML CARPUJECT IVP PRN ×2 (16:18→20:36)
[2019-12-19] MEDS ORDERED: PROPOFOL 200 MG/20 ML VIAL IVP ONE (17:46)
[2019-12-19] MEDS ORDERED: ONDANSETRON 4 MG/2 ML VIAL IVP ONE (17:46)
[2019-12-19] MEDS ORDERED: HYDROmorphone 1 MG/ML SYRINGE IM ONE (17:46)
[2019-12-19] MEDS ORDERED: ACETAMINOPHEN 1,000 MG/100 ML 100 ML IV ONE (17:46)
[2019-12-19] MEDS ORDERED: LIDOCAINE-MPF 2% 5 ML VIAL IM ONE (17:46)
[2019-12-19] MEDS ORDERED: ROCURONIUM 50 MG/5 ML VIAL IVP ONE (17:46)
[2019-12-19] MEDS ORDERED: ePHEDrine 50 MG/ML VIAL IVP ONE (17:46)
[2019-12-19] MEDS ORDERED: fentaNYL 100 MCG/2 ML VIAL IVP ONE (17:46)
[2019-12-19] MEDS ORDERED: hydrALAZINE INJ 20 MG/ML VIAL IVP PRN (18:31)
[2019-12-19] MEDS: SODIUM CHLORIDE FLUSH 0.9% 10 ML SYRINGE IVP PRN (20:45)
[2019-12-19] MEDS: CHLORHEXIDINE GLUCONATE 15 ML UDC PO SCH (20:46)
[2019-12-19] MEDS: GABAPENTIN 300 MG CAPSULE PO SCH (20:46)
[2019-12-19] MEDS: BACITRACIN ZINC OINT 1 PACKET TOP SCH (20:47)
[2019-12-19] MEDS: ATORVASTATIN 40 MG TABLET PO SCH (20:47)
[2019-12-20] MEDS: CLINDAMYCIN 600 MG/50 ML 50 ML IV SCH ×4 (00:36→18:14)
[2019-12-20] MEDS: INSULIN REGULAR HUMAN 300 UNIT/3 ML VIAL SUBQ SCH ×2 (00:38→06:39)
[2019-12-20] MEDS: SODIUM CHLORIDE FLUSH 0.9% 10 ML SYRINGE IVP SCH ×3 (00:38→18:20)
[2019-12-20 05:44] LABS: BASOPHILS % (AUTO) 0.7 %; EOSINOPHILS # (AUTO) 0.1 10^3/uL (0.0-0.7); EOSINOPHILS % (AUTO) 1.6 %; HGB - HEMOGLOBIN 12.4 g/dL (12.0-16.0); LYMPHOCYTES # (AUTO) 1.3 10^3/uL (1.5-3.5); LYMPHOCYTES % (AUTO) 22.5 %; MEAN CORPUSCULAR HEMOGLOBIN 30.8 pg (27.0-31.0); MEAN CORPUSCULAR HGB CONC 32.8 g/dL (32.0-36.0); MEAN PLATELET VOLUME 10.4 fL (7.9-10.8); MONOCYTES # (AUTO) 0.6 10^3/uL (0.0-1.0); MONOCYTES % (AUTO) 9.8 %; NEUTROPHILS # (AUTO) 3.7 10^3/uL (1.5-6.6); NEUTROPHILS % (AUTO) 65.1 %; PLT - PLATELET COUNT 154 10^3/uL (130-450); RED BLOOD COUNT 4.02 10^6/uL (4.20-5.40); WHITE BLOOD COUNT 5.7 x10^3/uL (4.8-10.8)
[2019-12-20 05:49] LABS: CALCIUM 8.2 mg/dL (8.5-10.3); CREATININE 1.1 mg/dL (0.4-1.0)
[2019-12-20] MEDS: BENZOCAINE/MENTHOL LOZENGE MM PRN ×2 (05:50→09:23)
[2019-12-20] MEDS: PANTOPRAZOLE 40 MG TABLET PO SCH (05:54)
[2019-12-20] MEDS: BUDESONIDE 0.5 MG/2 ML NEB INH SCH ×2 (07:43→19:31)
[2019-12-20] MEDS: FORMOTEROL FUMARATE NEB 20 MCG/2 ML INH SCH ×2 (07:43→19:31)
[2019-12-20] MEDS: INSULIN ASPART 300 UNIT/3 ML PEN SUBQ SCH ×4 (09:22→21:27)
[2019-12-20] MEDS: ENOXAPARIN 40 MG/0.4 ML SYRINGE SUBQ SCH (09:22)
[2019-12-20] MEDS: polyethylene glycoL 3350 17 GM PACKET PO SCH (09:23)
[2019-12-20] MEDS: TOLTERODINE LA 2 MG CAPSULE PO SCH (09:23)
[2019-12-20] MEDS: LACTOBACILLUS RHAMNOSUS GG CAPSULE PO SCH (09:23)
[2019-12-20] MEDS: ASPIRIN EC 81 MG TABLET PO SCH (09:24)
[2019-12-20] MEDS: DOCUSATE SODIUM 250 MG CAPSULE PO SCH ×2 (09:24→21:26)
[2019-12-20] MEDS: LOSARTAN 50 MG TABLET PO SCH (09:24)
[2019-12-20] MEDS: INSULIN GLARGINE 300 UNIT/3 ML PEN SUBQ SCH (09:25)
[2019-12-20] MEDS: BACITRACIN ZINC OINT 1 PACKET TOP SCH ×2 (09:32→21:27)
[2019-12-20] MEDS: CHLORHEXIDINE GLUCONATE 15 ML UDC PO SCH ×2 (09:32→21:27)
[2019-12-20] MEDS: ACETAMINOPHEN 325 MG TABLET PO PRN (09:34)
[2019-12-20] MEDS: SODIUM CHLORIDE FLUSH 0.9% 10 ML SYRINGE IVP PRN (12:39)
--- NOTE | 2019-12-20 13:50 | PROVIDER PROGRESS NOTE ---
Assessment/Plan - Problem List (1) Cellulitis of submental space Assessment/Plan: 12/19 pt feel better, she denies fever, chill. culture of drainage is still pending. continue antibiotics followup surgeon 12/19/2019 pt is s/p procedure of I/D from submental space, drainage fluid was send to culture and staining by surgeon continue antibiotics continue gently IVF (2) Mandibular body fracture 12/19 pt report her pain control is better. continue dress change, per surgeon's instruction continue full liquid diet, consult with brick molder hand, incentive spirometer, dressing change per surgeon's instruction, nurse for skin care, encourage pt out of bed and encourage pt for safely ambulation 12/18 surgeon Removal of failed implant, Deep bone biopsy of the anterior mandible, and Stabilization of mandible fracture with external pin fixation. Per surgeon, pt will have definitive reconstruction with a custom reconstruction plate in about seven days, surgeon recommend pt continue to be treated in hospital until next procedure. continue pain control, and followup surgeon. start with full liquid diet, consult with brick molder hand, incentive spirometer, dressing change per surgeon's instruction, nurse skin care, out of bed and encourage for safely ambulation (3) COPD (chronic obstructive pulmonary disease) Conclusion/Plan: 12/19 stable, continue breathing treatment as needed 12/18 pt's sat is slightly reduced. order CXR, will followup continue home medications (or equvalical), pulmocort breath treatment. (4) Type 2 diabetes mellitus 12/19 glucose level is controlled now, continue Lantus and SSI 12/18 uncontrolled. pt has 10.7 A1C. start Lantus, and SSI, ACHS, and hypoglycemia protocol (5) Rheumatoid arthritis Conclusion/Plan: stable, continue home meds. pt is Not on watcher automat long goods immunosuppressive medications. (6) Chronic renal disease Conclusion/Plan: 12/18 Improved. she has Baseline GFR 30-35. continue hydration and lab monitor - Current Meds Current Meds: Current Medications Generic Name Dose Route Start Last Admin Trade Name Freq PRN Reason Stop Dose Admin Acetaminophen 650 mg 12/14/19 18:29 12/20/19 09:34 Tylenol PO 650 mg Q4HR PRN Administration Pain 1 to 4 Albuterol/Ipratropium 3 ml 12/14/19 20:05 12/19/19 07:23 Duoneb INH 3 ml Q4HR PRN Administration Wheezing Aspirin 81 mg 12/19/19 09:00 12/20/19 09:24 Ecotrin PO 81 mg DAILY [facility] Administration Atorvastatin Calcium 40 mg 12/14/19 21:00 12/19/19 20:47 Lipitor PO 40 mg QPM [facility] Administration Bacitracin 1 packet 12/19/19 21:00 12/20/19 09:32 Bacitracin TOP 1 packet BID [facility] Administration Budesonide 0.5 mg 12/15/19 07:00 12/20/19 07:43 Pulmicort INH 0.5 mg RTBID [facility] Administration Chlorhexidine Gluconate 15 ml 12/19/19 21:00 12/20/19 09:32 Peridex PO 15 ml BID [facility] Administration Docusate Sodium 250 - 500 mg 12/17/19 09:00 12/20/19 09:24 Colace 250mg Capsule PO 250 mg BID [facility] Administration Enoxaparin Sodium 40 mg 12/15/19 09:00 12/20/19 09:22 Lovenox SUBQ 40 mg DAILY [facility] Administration Formoterol Fumarate 20 mcg 12/15/19 07:00 12/20/19 07:43 Perforomist INH 20 mcg RTBID [facility] Administration Gabapentin 900 mg 12/14/19 21:00 12/19/19 20:46 Neurontin PO 900 mg QPM [facility] Administration Clindamycin Phosphate 50 mls @ 100 mls/hr 12/14/19 19:00 12/20/19 13:10 Cleocin 600 Mg/50 Ml IV Infused Q6HR [facility] Infusion Insulin Aspart 1 - 9 unit 12/20/19 08:00 12/20/19 12:01 Novolog SUBQ Not Given 0800,1200,1700,2100 [facility] Protocol Insulin Glargine 10 unit 12/18/19 09:00 12/20/19 09:25 Lantus Solostar SUBQ 10 unit DAILY [facility] Administration Lactobacillus Rhamnosus 1 cap 12/15/19 09:00 12/20/19 09:23 Culturelle PO 1 cap DAILY [facility] Administration Losartan Potassium 50 mg 12/20/19 09:00 12/20/19 09:24 Cozaar PO 50 mg DAILY [facility] Administration Morphine Sulfate 2 mg 12/19/19 15:58 12/19/19 20:36 Morphine (Carpuject) IVP 2 mg Q2HR PRN Administration PAIN Oxycodone HCl 5 mg 12/17/19 14:46 12/19/19 13:56 Roxicodone PO 5 mg Q6HR PRN Administration PAIN Pantoprazole Sodium 40 mg 12/15/19 07:00 12/20/19 05:54 Protonix PO 40 mg QDAC [facility] Administration Polyethylene Glycol 17 gm 12/16/19 09:00 12/20/19 09:23 Miralax PO 17 gm DAILY [facility] Administration Sodium Chloride 10 ml 12/15/19 01:00 12/20/19 09:23 Normal Saline Flush 0.9% IVP 10 ml 0100,0900,1700 [facility] Administration Sodium Chloride 10 ml 12/14/19 19:49 12/20/19 12:39 Normal Saline Flush 0.9% IVP 10 ml PRN PRN Administration NEEDED PER PROVIDER ORDERS Throat Lozenges 1 lozenge 12/17/19 19:25 12/20/19 09:23 Cepacol MM 1 lozenge Q2HR PRN Administration Throat pain Tolterodine Tartrate 2 mg 12/15/19 09:00 12/20/19 09:23 Detrol La PO 2 mg DAILY [facility] Administration - Lab Result Fish Bone Diagrams: 12/20/19 05:30 12/20/19 05:30 - Additional Planning My Orders: My Active Orders 12/19/19 13:21 Out of bed 3+ hours today [RC] TID 12/19/19 15:58 Morphine Inj (Carpuject) [Morphine (Carpuject)] 2 mg IVP Q2HR PRN 12/19/19 18:31 hydrALAZINE INJ [Apresoline Inj] 10 mg IVP QID PRN 12/19/19 21:00 Miscellaenous Nursing Order [RC] BID Chlorhexidine [Peridex] 15 ml PO BID 12/20/19 07:30 Blood Glucose Checks - Eating [RC] 0800,1200,1700,2100 12/20/19 08:00 Insulin Aspart [NovoLOG] 1 - 9 unit SUBQ 0800,1200,1700,2100 12/20/19 09:00 Losartan [Cozaar] 50 mg PO DAILY Subjective - Subjective Patient Reports: Feeling Better Objective Vital Signs: Vital Signs - 24 hr 12/19/19 12/19/19 12/19/19 14:00 14:25 15:56 Temperature 36.3 C L Heart Rate Heart Rate [ 81 Activity] Heart Rate [ 87 Brachial] Heart Rate [ 80 77 Supine] Respiratory 20 Rate Blood Pressure 177/77 H [Activity] Blood Pressure 168/83 H [Right Brachial artery] Blood Pressure 162/74 H 162/74 H [Supine] O2 Saturation 96 12/19/19 12/20/19 12/20/19 22:05 00:00 07:45 Temperature 37 C 37.3 C Heart Rate 85 Heart Rate [ Activity] Heart Rate [ 85 84 Brachial] Heart Rate [ Supine] Respiratory 18 18 18 Rate Blood Pressure [Activity] Blood Pressure 163/99 H 162/72 H [Right Brachial artery] Blood Pressure [Supine] O2 Saturation 92 93 12/20/19 12/20/19 07:49 09:20 Temperature 37.3 C Heart Rate 85 Heart Rate [ Activity] Heart Rate [ Brachial] Heart Rate [ Supine] Respiratory 18 Rate Blood Pressure [Activity] Blood Pressure 136/72 H [Right Brachial artery] Blood Pressure [Supine] O2 Saturation 95 Oxygen O2 Source Nasal cannula I&O (Last 24 Hrs): Intake and Output Totals x24h 12/18/19 12/19/19 12/20/19 23:59 23:59 23:59 Intake Total 5010.417 2972.5 1690 Output Total 700 600 75 Balance 4310.417 2372.5 1615 General: Alert, No acute distress HEENT: Atraumatic Neck: Supple Lymphatic: no adenopathy Neuro: Alert, Non Focal, Oriented Times 3 Cardiovascular: Regular rate, Normal S1, Normal S2 Respiratory: Chest non-tender, No respiratory distress Abdomen: Normal bowel sounds, Soft Extremities: No edema, Normal pulses - Results Results: Laboratory Results WBC 5.7 x10^3/uL (4.8-10.8) 12/20/19 05:30 RBC 4.02 10^6/uL (4.20-5.40) L 12/20/19 05:30 Hgb 12.4 g/dL (12.0-16.0) 12/20/19 05:30 Hct 37.8 % (37.0-47.0) 12/20/19 05:30 MCV 94.0 fL (81.0-99.0) 12/20/19 05:30 MCH 30.8 pg (27.0-31.0) 12/20/19 05:30 MCHC 32.8 g/dL (32.0-36.0) 12/20/19 05:30 RDW 14.0 % (12.0-15.0) 12/20/19 05:30 Plt Count 154 10^3/uL (130-450) 12/20/19 05:30 MPV 10.4 fL (7.9-10.8) 12/20/19 05:30 Neut # (Auto) 3.7 10^3/uL (1.5-6.6) 12/20/19 05:30 Lymph # (Auto) 1.3 10^3/uL (1.5-3.5) L 12/20/19 05:30 [place] # (Auto) 0.6 10^3/uL (0.0-1.0) 12/20/19 05:30 Eos # (Auto) 0.1 10^3/uL (0.0-0.7) 12/20/19 05:30 Baso # (Auto) 0.0 10^3/uL (0.0-0.1) 12/20/19 05:30 Absolute Nucleated RBC 0.00 x10^3/uL 12/20/19 05:30 Nucleated RBC % 0.0 /100WBC 12/20/19 05:30 Sodium 137 mmol/L (135-145) 12/20/19 05:30 Potassium 3.9 mmol/L (3.5-5.0) 12/20/19 05:30 Chloride 107 mmol/L (101-111) 12/20/19 05:30 Carbon Dioxide 23 mmol/L (21-32) 12/20/19 05:30 Anion Gap 7.0 (6-13) 12/20/19 05:30 BUN 10 mg/dL (6-20) 12/20/19 05:30 Creatinine 1.1 mg/dL (0.4-1.0) H 12/20/19 05:30 Estimated GFR (MDRD) 47 (>89) L 12/20/19 05:30 Glucose 105 mg/dL (70-100) H 12/20/19 05:30 POC Whole Bld Glucose 115 mg/dL (70 - 100) H 12/20/19 11:53 Glycated Hemoglobin 10.7 % (4.6-6.2) H 12/14/19 19:38 Estim Average Glucose 260 (70-100) H 12/14/19 19:38 Calcium 8.2 mg/dL (8.5-10.3) L 12/20/19 05:30 ABX Reporting Has patient been on IV antibiotics over the past 48 hours?: Yes Current Medications - Current Medications Current Medications: Active Medications Acetaminophen (Tylenol) 650 mg PO Q4HR PRN PRN Reason: Pain 1 to 4 Last Admin: 12/20/19 09:34 Dose: 650 mg Albuterol () 2.5 mg INH RTQ4H PRN PRN Reason: Wheezing Albuterol/Ipratropium (Duoneb) 3 ml INH Q4HR PRN PRN Reason: Wheezing Last Admin: 12/19/19 07:23 Dose: 3 ml Aspirin (Ecotrin) 81 mg PO DAILY [facility] Last Admin: 12/20/19 09:24 Dose: 81 mg Atorvastatin Calcium (Lipitor) 40 mg PO QPM [facility] Last Admin: 12/19/19 20:47 Dose: 40 mg Bacitracin (Bacitracin) 1 packet TOP BID [facility] Last Admin: 12/20/19 09:32 Dose: 1 packet Budesonide (Pulmicort) 0.5 mg INH RTBID [facility] Last Admin: 12/20/19 07:43 Dose: 0.5 mg Carboxymethylcellulose (Refresh 1% Ophth Drops) 1 drops EACHEYE PRN PRN PRN Reason: Dry Eye Chlorhexidine Gluconate (Peridex) 15 ml PO BID [facility] Last Admin: 12/20/19 09:32 Dose: 15 ml Docusate Sodium (Colace 250mg Capsule) 250 - 500 mg PO BID [facility] Last Admin: 12/20/19 09:24 Dose: 250 mg Enoxaparin Sodium (Lovenox) 40 mg SUBQ DAILY [facility] Last Admin: 12/20/19 09:22 Dose: 40 mg Formoterol Fumarate (Perforomist) 20 mcg INH RTBID [facility] Last Admin: 12/20/19 07:43 Dose: 20 mcg Gabapentin (Neurontin) 900 mg PO QPM [facility] Last Admin: 12/19/19 20:46 Dose: 900 mg Hydralazine HCl (Apresoline Inj) 10 mg IVP QID PRN PRN Reason: Hypertensive Emergency Clindamycin Phosphate (Cleocin 600 Mg/50 Ml) 50 mls @ 100 mls/hr IV Q6HR [facility] Last Infusion: 12/20/19 13:10 Dose: Infused Insulin Aspart (Novolog) 1 - 9 unit SUBQ 0800,1200,1700,2100 [facility]; Protocol Last Admin: 12/20/19 12:01 Dose: Not Given Insulin Glargine (Lantus Solostar) 10 unit SUBQ DAILY [facility] Last Admin: 12/20/19 09:25 Dose: 10 unit Lactobacillus Rhamnosus (Culturelle) 1 cap PO DAILY [facility] Last Admin: 12/20/19 09:23 Dose: 1 cap Losartan Potassium (Cozaar) 50 mg PO DAILY [facility] Last Admin: 12/20/19 09:24 Dose: 50 mg Mineral Oil (Cavilon) 1 applic TOP PRN PRN PRN Reason: Skin Care Morphine Sulfate (Morphine (Carpuject)) 2 mg IVP Q2HR PRN PRN Reason: PAIN Last Admin: 12/19/19 20:36 Dose: 2 mg Multi-Ingredient Ointment (Zinc Oxide) 1 applic TOP PRN PRN PRN Reason: Skin Care Oxycodone HCl (Roxicodone) 5 mg PO Q6HR PRN PRN Reason: PAIN Last Admin: 12/19/19 13:56 Dose: 5 mg Pantoprazole Sodium (Protonix) 40 mg PO QDAC [facility] Last Admin: 12/20/19 05:54 Dose: 40 mg Polyethylene Glycol (Miralax) 17 gm PO DAILY [facility] Last Admin: 12/20/19 09:23 Dose: 17 gm Sodium Chloride (Normal Saline Flush 0.9%) 10 ml IVP 0100,0900,1700 [facility] Last Admin: 12/20/19 09:23 Dose: 10 ml Sodium Chloride (Normal Saline Flush 0.9%) 10 ml IVP PRN PRN PRN Reason: NEEDED PER PROVIDER ORDERS Last Admin: 12/20/19 12:39 Dose: 10 ml Throat Lozenges (Cepacol) 1 lozenge MM Q2HR PRN PRN Reason: Throat pain Last Admin: 12/20/19 09:23 Dose: 1 lozenge Tolterodine Tartrate (Detrol La) 2 mg PO DAILY [facility] Last Admin: 12/20/19 09:23 Dose: 2 mg Albuterol Sulfate [Proair Hfa Inhaler] 1 puffs INH Q4H PRN 12/14/19 Aspirin [Aspirin EC] 81 mg PO DAILY 12/14/19 Atorvastatin [Lipitor] 40 mg PO DAILY 12/14/19 Clindamycin HCl [Clindamycin 300MG CAP] 300 mg PO TID 12/14/19 Fluticasone/Salmeterol [Advair 250-50 Diskus] 1 puffs INH BID 12/14/19 Gabapentin 900 mg PO DAILY PM 12/14/19 Insulin Aspart [NovoLOG] 10 units INJ TIDWM 12/14/19 Insulin Glargine [Lantus Solostar] 28 units INJ DAILY 12/14/19 Omeprazole 20 mg PO DAILY 12/14/19 Telmisartan [Micardis] 10 mg PO DAILY 12/14/19 Tiotropium [place] [Spiriva Respimat] 4 gm IH DAILY 12/14/19 Tolterodine Tartrate [Detrol LA] 2 mg PO DAILY 12/14/19
--- NOTE | 2019-12-20 20:43 | PROVIDER PROGRESS NOTE ---
Subjective - Prog Note Date Prog Note Date: 12/20/19 Prog Note Time: 20:40 - Subjective Pt reports feeling: Improved (Kezia is in good spirits this afternoon. Per her chart she has only had 120 cc of PO, but she apparently tolerated it well. Ambulating and voiding without difficulty. Reports mild pain) Objective - Vital Signs/Intake & Output Vital Signs: Vital Signs x48h Temp Pulse Pulse Resp BP Pulse Ox 12/20/19 19:34 80 18 12/20/19 16:11 36.4 C L 72 20 141/71 H 93 Intake & Output: Intake & Output 12/17/19 12/18/19 12/19/19 12/20/19 23:59 23:59 23:59 23:59 Intake Total 5083.750 5010.417 2972.5 2274 Output Total 350 700 600 325 Balance 4733.750 4310.417 2372.5 1949 - Objective General Appearance: positive: No acute distress, Alert Eyes Bilateral: positive: PERRL, EOMI ENT: positive: Other (MAURA wnl. Fixation hardware stable. Mandible fracture not mobile. Moderate intraoral and extraoral edema without elevation of the nino. Moderate postop ecchymosis of the chin. Dressing/wounds clean and intact. Soft c-collar on.) - Lab Results Fish Bones: 12/20/19 05:30 12/20/19 05:30 Other Labs: Lab Results x24hrs 12/20/19 12/20/19 12/20/19 Range/Units 16:41 11:53 07:46 WBC (4.8-10.8) x10^3/uL RBC (4.20-5.40) 10^6/uL Hgb (12.0-16.0) g/dL Hct (37.0-47.0) % MCV (81.0-99.0) fL MCH (27.0-31.0) pg MCHC (32.0-36.0) g/dL RDW (12.0-15.0) % Plt Count (130-450) 10^3/uL MPV (7.9-10.8) fL Neut # (Auto) (1.5-6.6) 10^3/uL Lymph # (Auto) (1.5-3.5) 10^3/uL [place] # (Auto) (0.0-1.0) 10^3/uL Eos # (Auto) (0.0-0.7) 10^3/uL Baso # (Auto) (0.0-0.1) 10^3/uL Absolute Nucleated RBC x10^3/uL Nucleated RBC % /100WBC Sodium (135-145) mmol/L Potassium (3.5-5.0) mmol/L Chloride (101-111) mmol/L Carbon Dioxide (21-32) mmol/L Anion Gap (6-13) BUN (6-20) mg/dL Creatinine (0.4-1.0) mg/dL Estimated GFR (MDRD) (>89) Glucose (70-100) mg/dL POC Whole Bld Glucose 103 H 115 H 138 H (70 - 100) mg/dL Calcium (8.5-10.3) mg/dL 12/20/19 12/20/19 12/20/19 Range/Units 05:46 05:30 05:30 WBC 5.7 (4.8-10.8) x10^3/uL RBC 4.02 L (4.20-5.40) 10^6/uL Hgb 12.4 (12.0-16.0) g/dL Hct 37.8 (37.0-47.0) % MCV 94.0 (81.0-99.0) fL MCH 30.8 (27.0-31.0) pg MCHC 32.8 (32.0-36.0) g/dL RDW 14.0 (12.0-15.0) % Plt Count 154 (130-450) 10^3/uL MPV 10.4 (7.9-10.8) fL Neut # (Auto) 3.7 (1.5-6.6) 10^3/uL Lymph # (Auto) 1.3 L (1.5-3.5) 10^3/uL [place] # (Auto) 0.6 (0.0-1.0) 10^3/uL Eos # (Auto) 0.1 (0.0-0.7) 10^3/uL Baso # (Auto) 0.0 (0.0-0.1) 10^3/uL Absolute Nucleated RBC 0.00 x10^3/uL Nucleated RBC % 0.0 /100WBC Sodium 137 (135-145) mmol/L Potassium 3.9 (3.5-5.0) mmol/L Chloride 107 (101-111) mmol/L Carbon Dioxide 23 (21-32) mmol/L Anion Gap 7.0 (6-13) BUN 10 (6-20) mg/dL Creatinine 1.1 H (0.4-1.0) mg/dL Estimated GFR (MDRD) 47 L (>89) Glucose 105 H (70-100) mg/dL POC Whole Bld Glucose 108 H (70 - 100) mg/dL Calcium 8.2 L (8.5-10.3) mg/dL 12/20/19 Range/Units 00:24 WBC (4.8-10.8) x10^3/uL RBC (4.20-5.40) 10^6/uL Hgb (12.0-16.0) g/dL Hct (37.0-47.0) % MCV (81.0-99.0) fL MCH (27.0-31.0) pg MCHC (32.0-36.0) g/dL RDW (12.0-15.0) % Plt Count (130-450) 10^3/uL MPV (7.9-10.8) fL Neut # (Auto) (1.5-6.6) 10^3/uL Lymph # (Auto) (1.5-3.5) 10^3/uL [place] # (Auto) (0.0-1.0) 10^3/uL Eos # (Auto) (0.0-0.7) 10^3/uL Baso # (Auto) (0.0-0.1) 10^3/uL Absolute Nucleated RBC x10^3/uL Nucleated RBC % /100WBC Sodium (135-145) mmol/L Potassium (3.5-5.0) mmol/L Chloride (101-111) mmol/L Carbon Dioxide (21-32) mmol/L Anion Gap (6-13) BUN (6-20) mg/dL Creatinine (0.4-1.0) mg/dL Estimated GFR (MDRD) (>89) Glucose (70-100) mg/dL POC Whole Bld Glucose 95 (70 - 100) mg/dL Calcium (8.5-10.3) mg/dL Assessment/Plan - Problem List (1) Pathological fracture of mandible Impression: 84 yo F POD #1 s/p Removal of failed implants, deep bone biopsy of right mandible, and fixation of mandibular fracture with external pin fixation. Doing well - Continue IV abx and probiotics - Encourage good PO intake - oral hygiene BID w/ chlorhexidine - STRICT no chew diet - no shower. - keep wounds clean. Change dressing daily. Nursing and internal medicine assistance greatly appreciated. Please call with any questions. Renny Magdaleno DDS [phone]
[2019-12-20] MEDS: ATORVASTATIN 40 MG TABLET PO SCH (21:26)
[2019-12-20] MEDS: GABAPENTIN 300 MG CAPSULE PO SCH (21:26)
[2019-12-20] MEDS: oxyCODONE 5 MG TABLET PO PRN (22:02)
[2019-12-21] MEDS: SODIUM CHLORIDE FLUSH 0.9% 10 ML SYRINGE IVP SCH ×3 (00:25→18:26)
[2019-12-21] MEDS: CLINDAMYCIN 600 MG/50 ML 50 ML IV SCH ×4 (00:25→18:26)
[2019-12-21 04:39] LABS: BASOPHILS % (AUTO) 0.7 %; EOSINOPHILS # (AUTO) 0.2 10^3/uL (0.0-0.7); EOSINOPHILS % (AUTO) 3.5 %; HGB - HEMOGLOBIN 12.1 g/dL (12.0-16.0); LYMPHOCYTES # (AUTO) 1.4 10^3/uL (1.5-3.5); LYMPHOCYTES % (AUTO) 32.2 %; MEAN CORPUSCULAR HEMOGLOBIN 29.5 pg (27.0-31.0); MEAN CORPUSCULAR HGB CONC 31.6 g/dL (32.0-36.0); MEAN CORPUSCULAR VOLUME 93.4 fL (81.0-99.0); MEAN PLATELET VOLUME 10.9 fL (7.9-10.8); MONOCYTES # (AUTO) 0.5 10^3/uL (0.0-1.0); MONOCYTES % (AUTO) 11.1 %; NEUTROPHILS # (AUTO) 2.3 10^3/uL (1.5-6.6); NEUTROPHILS % (AUTO) 52.5 %; PLT - PLATELET COUNT 154 10^3/uL (130-450); WHITE BLOOD COUNT 4.3 x10^3/uL (4.8-10.8)
[2019-12-21 04:47] LABS: CALCIUM 8.6 mg/dL (8.5-10.3); CREATININE 1.1 mg/dL (0.4-1.0)
[2019-12-21] MEDS: oxyCODONE 5 MG TABLET PO PRN (05:00)
[2019-12-21] MEDS: SODIUM CHLORIDE FLUSH 0.9% 10 ML SYRINGE IVP PRN (06:17)
[2019-12-21] MEDS: PANTOPRAZOLE 40 MG TABLET PO SCH ×2 (06:17→06:22)
[2019-12-21] MEDS: FORMOTEROL FUMARATE NEB 20 MCG/2 ML INH SCH ×2 (07:36→19:52)
[2019-12-21] MEDS: BUDESONIDE 0.5 MG/2 ML NEB INH SCH ×2 (07:36→19:53)
[2019-12-21] MEDS: INSULIN ASPART 300 UNIT/3 ML PEN SUBQ SCH ×4 (08:27→21:42)
[2019-12-21] MEDS: DOCUSATE SODIUM 250 MG CAPSULE PO SCH ×2 (08:39→21:44)
[2019-12-21] MEDS: LACTOBACILLUS RHAMNOSUS GG CAPSULE PO SCH (08:39)
[2019-12-21] MEDS: ASPIRIN EC 81 MG TABLET PO SCH (08:39)
[2019-12-21] MEDS: LOSARTAN 50 MG TABLET PO SCH (08:40)
[2019-12-21] MEDS: ENOXAPARIN 40 MG/0.4 ML SYRINGE SUBQ SCH (08:44)
[2019-12-21] MEDS: polyethylene glycoL 3350 17 GM PACKET PO SCH (08:44)
[2019-12-21] MEDS: INSULIN GLARGINE 300 UNIT/3 ML PEN SUBQ SCH (08:53)
[2019-12-21] MEDS: TOLTERODINE LA 2 MG CAPSULE PO SCH (08:55)
[2019-12-21] MEDS: CHLORHEXIDINE GLUCONATE 15 ML UDC PO SCH ×2 (11:18→21:45)
[2019-12-21] MEDS: BACITRACIN ZINC OINT 1 PACKET TOP SCH ×2 (11:18→21:45)
[2019-12-21] MEDS: methylPREDNISolone SUCCINATE 40 MG/ML VIAL IVP SCH ×2 (12:22→22:03)
--- NOTE | 2019-12-21 12:38 | PROVIDER PROGRESS NOTE ---
Assessment/Plan - Problem List (1) Cellulitis of submental space Assessment/Plan: 12/20 pt has no fever or chill. drainage fluid culture is still pending, continue antibiotics. 12/19 pt feel better, she denies fever, chill. culture of drainage is still pending. continue antibiotics followup surgeon 12/19/2019 pt is s/p procedure of I/D from submental space, drainage fluid was send to culture and staining by surgeon continue antibiotics continue gently IVF (2) COPD (chronic obstructive pulmonary disease) Conclusion/Plan: 12/20, pt present mild to moderate wheezing, pt is still needing oxygen supplement. pt did not take at her home. add IV of lower dosage steroid continue breathing treatment 12/19 stable, continue breathing treatment as needed 12/18 pt's sat is slightly reduced. order CXR, will followup continue home medications (or equvalical), pulmocort breath treatment. (3) Mandibular body fracture 12/20 continue pain control, followup surgeon 12/19 pt report her pain control is better. continue dress change, per surgeon's instruction continue full liquid diet, consult with all source intelligence technician, incentive spirometer, dressing change per surgeon's instruction, nurse for skin care, encourage pt out of bed and encourage pt for safely ambulation 12/18 surgeon Removal of failed implant, Deep bone biopsy of the anterior mandible, and Stabilization of mandible fracture with external pin fixation. Per surgeon, pt will have definitive reconstruction with a custom reconstruction plate in about seven days, surgeon recommend pt continue to be treated in hospital until next procedure. continue pain control, and followup surgeon. start with full liquid diet, consult with all source intelligence technician, incentive spirometer, dressing change per surgeon's instruction, nurse skin care, out of bed and encourage for safely ambulation (4) Type 2 diabetes mellitus 12/19 glucose level is controlled now, continue Lantus and SSI 12/18 uncontrolled. pt has 10.7 A1C. start Lantus, and SSI, ACHS, and hypoglycemia protocol (5) Rheumatoid arthritis Conclusion/Plan: stable, continue home meds. pt is Not on longterm immunosuppressive medications. (6) Chronic renal disease Conclusion/Plan: 12/18 Improved. she has Baseline GFR 30-35. continue hydration and lab monitor - Current Meds Current Meds: Current Medications Generic Name Dose Route Start Last Admin Trade Name Freq PRN Reason Stop Dose Admin Acetaminophen 650 mg 12/14/19 18:29 12/20/19 09:34 Tylenol PO 650 mg Q4HR PRN Administration Pain 1 to 4 Albuterol/Ipratropium 3 ml 12/14/19 20:05 12/19/19 07:23 Duoneb INH 3 ml Q4HR PRN Administration Wheezing Aspirin 81 mg 12/19/19 09:00 12/21/19 08:39 Ecotrin PO 81 mg DAILY [facility] Administration Atorvastatin Calcium 40 mg 12/14/19 21:00 12/20/19 21:26 Lipitor PO 40 mg QPM [facility] Administration Bacitracin 1 packet 12/19/19 21:00 12/21/19 11:18 Bacitracin TOP 1 packet BID [facility] Administration Budesonide 0.5 mg 12/15/19 07:00 12/21/19 07:36 Pulmicort INH 0.5 mg RTBID [facility] Administration Chlorhexidine Gluconate 15 ml 12/19/19 21:00 12/21/19 11:18 Peridex PO 15 ml BID [facility] Administration Docusate Sodium 250 - 500 mg 12/17/19 09:00 12/21/19 08:39 Colace 250mg Capsule PO 250 mg BID [facility] Administration Enoxaparin Sodium 40 mg 12/15/19 09:00 12/21/19 08:44 Lovenox SUBQ 40 mg DAILY [facility] Administration Formoterol Fumarate 20 mcg 12/15/19 07:00 12/21/19 07:36 Perforomist INH 20 mcg RTBID [facility] Administration Gabapentin 900 mg 12/14/19 21:00 12/20/19 21:26 Neurontin PO 900 mg QPM [facility] Administration Clindamycin Phosphate 50 mls @ 100 mls/hr 12/14/19 19:00 12/21/19 12:05 Cleocin 600 Mg/50 Ml IV Infused Q6HR [facility] Infusion Insulin Aspart 1 - 9 unit 12/20/19 08:00 12/21/19 11:27 Novolog SUBQ 1 unit 0800,1200,1700,2100 [facility] Administration Protocol Insulin Glargine 10 unit 12/18/19 09:00 12/21/19 08:53 Lantus Solostar SUBQ 10 unit DAILY [facility] Administration Lactobacillus Rhamnosus 1 cap 12/15/19 09:00 12/21/19 08:39 Culturelle PO 1 cap DAILY [facility] Administration Losartan Potassium 50 mg 12/20/19 09:00 12/21/19 08:40 Cozaar PO 50 mg DAILY [facility] Administration Methylprednisolone 30 mg 12/21/19 12:00 12/21/19 12:22 Solu-Medrol (40mg Vial) IVP 30 mg TID [facility] Administration Morphine Sulfate 2 mg 12/19/19 15:58 12/19/19 20:36 Morphine (Carpuject) IVP 2 mg Q2HR PRN Administration PAIN Oxycodone HCl 5 mg 12/17/19 14:46 12/21/19 05:00 Roxicodone PO 5 mg Q6HR PRN Administration PAIN Pantoprazole Sodium 40 mg 12/15/19 07:00 12/21/19 06:22 Protonix PO Not Given QDAC [facility] Polyethylene Glycol 17 gm 12/16/19 09:00 12/21/19 08:44 Miralax PO 17 gm DAILY [facility] Administration Sodium Chloride 10 ml 12/15/19 01:00 12/21/19 08:40 Normal Saline Flush 0.9% IVP 10 ml 0100,0900,1700 [facility] Administration Sodium Chloride 10 ml 12/14/19 19:49 12/21/19 06:17 Normal Saline Flush 0.9% IVP 10 ml PRN PRN Administration NEEDED PER PROVIDER ORDERS Throat Lozenges 1 lozenge 12/17/19 19:25 12/20/19 09:23 Cepacol MM 1 lozenge Q2HR PRN Administration Throat pain Tolterodine Tartrate 2 mg 12/15/19 09:00 12/21/19 08:55 Detrol La PO 2 mg DAILY [facility] Administration - Lab Result Fish Bone Diagrams: 12/21/19 04:20 12/21/19 04:20 - Additional Planning My Orders: My Active Orders 12/21/19 12:00 methylPREDNISolone SUCCINATE [SOLU-Medrol (40MG VIAL)] 30 mg IVP TID 12/21/19 16:30 Wheat Dextrin [Benefiber] 1 packet PO DAILY PRN 12/22/19 08:00 Multivitamin W/Minerals [Theragran M] 1 tab PO DAILYWM Subjective - Subjective Patient Reports: Feeling Better Objective Vital Signs: Vital Signs - 24 hr 12/20/19 12/20/19 12/21/19 16:11 19:34 00:41 Temperature 36.4 C L 36.4 C L Heart Rate 80 Heart Rate [ 72 70 Brachial] Respiratory 20 18 18 Rate Blood Pressure 141/71 H 149/66 H [Right Brachial artery] O2 Saturation 93 94 12/21/19 12/21/19 12/21/19 00:42 07:30 07:40 Temperature 36.4 C L 36.4 C L Heart Rate 73 Heart Rate [ 71 73 Brachial] Respiratory 17 18 18 Rate Blood Pressure 149/66 H 145/87 H [Right Brachial artery] O2 Saturation 94 93 Oxygen O2 Source Nasal cannula I&O (Last 24 Hrs): Intake and Output Totals x24h 12/19/19 12/20/19 12/21/19 23:59 23:59 23:59 Intake Total 2972.5 2474 1330 Output Total 992 459 2955 Balance 2372.5 1949 230 General: Alert, No acute distress HEENT: Atraumatic Neck: Supple Lymphatic: no adenopathy Neuro: Alert, Non Focal, Oriented Times 3 Cardiovascular: Regular rate, Normal S1, Normal S2 Respiratory: Chest non-tender, No respiratory distress Abdomen: Normal bowel sounds, Soft Extremities: No edema, Normal pulses - Results Results: Laboratory Results WBC 4.3 x10^3/uL (4.8-10.8) L 12/21/19 04:20 RBC 4.10 10^6/uL (4.20-5.40) L 12/21/19 04:20 Hgb 12.1 g/dL (12.0-16.0) 12/21/19 04:20 Hct 38.3 % (37.0-47.0) 12/21/19 04:20 MCV 93.4 fL (81.0-99.0) 12/21/19 04:20 MCH 29.5 pg (27.0-31.0) 12/21/19 04:20 MCHC 31.6 g/dL (32.0-36.0) L 12/21/19 04:20 RDW 14.0 % (12.0-15.0) 12/21/19 04:20 Plt Count 154 10^3/uL (130-450) 12/21/19 04:20 MPV 10.9 fL (7.9-10.8) H 12/21/19 04:20 Neut # (Auto) 2.3 10^3/uL (1.5-6.6) 12/21/19 04:20 Lymph # (Auto) 1.4 10^3/uL (1.5-3.5) L 12/21/19 04:20 Caroline # (Auto) 0.5 10^3/uL (0.0-1.0) 12/21/19 04:20 Eos # (Auto) 0.2 10^3/uL (0.0-0.7) 12/21/19 04:20 Baso # (Auto) 0.0 10^3/uL (0.0-0.1) 12/21/19 04:20 Absolute Nucleated RBC 0.00 x10^3/uL 12/21/19 04:20 Nucleated RBC % 0.0 /100WBC 12/21/19 04:20 Sodium 140 mmol/L (135-145) 12/21/19 04:20 Potassium 3.7 mmol/L (3.5-5.0) 12/21/19 04:20 Chloride 106 mmol/L (101-111) 12/21/19 04:20 Carbon Dioxide 27 mmol/L (21-32) 12/21/19 04:20 Anion Gap 7.0 (6-13) 12/21/19 04:20 BUN 8 mg/dL (6-20) 12/21/19 04:20 Creatinine 1.1 mg/dL (0.4-1.0) H 12/21/19 04:20 Estimated GFR (MDRD) 47 (>89) L 12/21/19 04:20 Glucose 120 mg/dL (70-100) H 12/21/19 04:20 POC Whole Bld Glucose 168 mg/dL (70 - 100) H 12/21/19 11:08 Glycated Hemoglobin 10.7 % (4.6-6.2) H 12/14/19 19:38 Estim Average Glucose 260 (70-100) H 12/14/19 19:38 Calcium 8.6 mg/dL (8.5-10.3) 12/21/19 04:20 ABX Reporting Has patient been on IV antibiotics over the past 48 hours?: Yes Current Medications - Current Medications Current Medications: Active Medications Acetaminophen (Tylenol) 650 mg PO Q4HR PRN PRN Reason: Pain 1 to 4 Last Admin: 12/20/19 09:34 Dose: 650 mg Albuterol () 2.5 mg INH RTQ4H PRN PRN Reason: Wheezing Albuterol/Ipratropium (Duoneb) 3 ml INH Q4HR PRN PRN Reason: Wheezing Last Admin: 12/19/19 07:23 Dose: 3 ml Aspirin (Ecotrin) 81 mg PO DAILY [facility] Last Admin: 12/21/19 08:39 Dose: 81 mg Atorvastatin Calcium (Lipitor) 40 mg PO QPM [facility] Last Admin: 12/20/19 21:26 Dose: 40 mg Bacitracin (Bacitracin) 1 packet TOP BID [facility] Last Admin: 12/21/19 11:18 Dose: 1 packet Budesonide (Pulmicort) 0.5 mg INH RTBID [facility] Last Admin: 12/21/19 07:36 Dose: 0.5 mg Carboxymethylcellulose (Refresh 1% Ophth Drops) 1 drops EACHEYE PRN PRN PRN Reason: Dry Eye Chlorhexidine Gluconate (Peridex) 15 ml PO BID [facility] Last Admin: 12/21/19 11:18 Dose: 15 ml Docusate Sodium (Colace 250mg Capsule) 250 - 500 mg PO BID [facility] Last Admin: 12/21/19 08:39 Dose: 250 mg Enoxaparin Sodium (Lovenox) 40 mg SUBQ DAILY [facility] Last Admin: 12/21/19 08:44 Dose: 40 mg Formoterol Fumarate (Perforomist) 20 mcg INH RTBID [facility] Last Admin: 12/21/19 07:36 Dose: 20 mcg Gabapentin (Neurontin) 900 mg PO QPM [facility] Last Admin: 12/20/19 21:26 Dose: 900 mg Hydralazine HCl (Apresoline Inj) 10 mg IVP QID PRN PRN Reason: Hypertensive Emergency Clindamycin Phosphate (Cleocin 600 Mg/50 Ml) 50 mls @ 100 mls/hr IV Q6HR [facility] Last Infusion: 12/21/19 12:05 Dose: Infused Insulin Aspart (Novolog) 1 - 9 unit SUBQ 0800,1200,1700,2100 [facility]; Protocol Last Admin: 12/21/19 11:27 Dose: 1 unit Insulin Glargine (Lantus Solostar) 10 unit SUBQ DAILY [facility] Last Admin: 12/21/19 08:53 Dose: 10 unit Lactobacillus Rhamnosus (Culturelle) 1 cap PO DAILY [facility] Last Admin: 12/21/19 08:39 Dose: 1 cap Losartan Potassium (Cozaar) 50 mg PO DAILY [facility] Last Admin: 12/21/19 08:40 Dose: 50 mg Methylprednisolone (Solu-Medrol (40mg Vial)) 30 mg IVP TID [facility] Last Admin: 12/21/19 12:22 Dose: 30 mg Mineral Oil (Cavilon) 1 applic TOP PRN PRN PRN Reason: Skin Care Morphine Sulfate (Morphine (Carpuject)) 2 mg IVP Q2HR PRN PRN Reason: PAIN Last Admin: 12/19/19 20:36 Dose: 2 mg Multi-Ingredient Ointment (Zinc Oxide) 1 applic TOP PRN PRN PRN Reason: Skin Care Multivitamins/Minerals (Theragran M) 1 tab PO DAILYWM [facility] Oxycodone HCl (Roxicodone) 5 mg PO Q6HR PRN PRN Reason: PAIN Last Admin: 12/21/19 05:00 Dose: 5 mg Pantoprazole Sodium (Protonix) 40 mg PO QDAC [facility] Last Admin: 12/21/19 06:22 Dose: Not Given Polyethylene Glycol (Miralax) 17 gm PO DAILY [facility] Last Admin: 12/21/19 08:44 Dose: 17 gm Sodium Chloride (Normal Saline Flush 0.9%) 10 ml IVP 0100,0900,1700 [facility] Last Admin: 12/21/19 08:40 Dose: 10 ml Sodium Chloride (Normal Saline Flush 0.9%) 10 ml IVP PRN PRN PRN Reason: NEEDED PER PROVIDER ORDERS Last Admin: 12/21/19 06:17 Dose: 10 ml Throat Lozenges (Cepacol) 1 lozenge MM Q2HR PRN PRN Reason: Throat pain Last Admin: 12/20/19 09:23 Dose: 1 lozenge Tolterodine Tartrate (Detrol La) 2 mg PO DAILY [facility] Last Admin: 12/21/19 08:55 Dose: 2 mg Wheat Dextrin (Benefiber) 1 packet PO DAILY PRN PRN Reason: Constipation Albuterol Sulfate [Proair Hfa Inhaler] 1 puffs INH Q4H PRN 12/14/19 Aspirin [Aspirin EC] 81 mg PO DAILY 12/14/19 Atorvastatin [Lipitor] 40 mg PO DAILY 12/14/19 Clindamycin HCl [Clindamycin 300MG CAP] 300 mg PO TID 12/14/19 Fluticasone/Salmeterol [Advair 250-50 Diskus] 1 puffs INH BID 12/14/19 Gabapentin 900 mg PO DAILY PM 12/14/19 Insulin Aspart [NovoLOG] 10 units INJ TIDWM 12/14/19 Insulin Glargine [Lantus Solostar] 28 units INJ DAILY 12/14/19 Omeprazole 20 mg PO DAILY 12/14/19 Telmisartan [Micardis] 10 mg PO DAILY 12/14/19 Tiotropium [place] [Spiriva Respimat] 4 gm IH DAILY 12/14/19 Tolterodine Tartrate [Detrol LA] 2 mg PO DAILY 12/14/19
[2019-12-21] MEDS: diphenhydrAMINE 25 MG CAPSULE PO PRN (16:14)
[2019-12-21] MEDS ORDERED: WHEAT DEXTRIN POWDER PACKET PO PRN (16:30)
[2019-12-21] MEDS: ATORVASTATIN 40 MG TABLET PO SCH (21:44)
[2019-12-21] MEDS: GABAPENTIN 300 MG CAPSULE PO SCH (21:44)
[2019-12-22] MEDS: CLINDAMYCIN 600 MG/50 ML 50 ML IV SCH ×4 (01:20→17:57)
[2019-12-22] MEDS: SODIUM CHLORIDE FLUSH 0.9% 10 ML SYRINGE IVP SCH ×3 (01:20→16:29)
[2019-12-22 05:33] LABS: BASOPHILS % (AUTO) 0.3 %; HGB - HEMOGLOBIN 12.7 g/dL (12.0-16.0); LYMPHOCYTES # (AUTO) 0.6 10^3/uL (1.5-3.5); LYMPHOCYTES % (AUTO) 16.3 %; MEAN CORPUSCULAR HEMOGLOBIN 30.9 pg (27.0-31.0); MEAN CORPUSCULAR HGB CONC 33.2 g/dL (32.0-36.0); MEAN CORPUSCULAR VOLUME 92.9 fL (81.0-99.0); MONOCYTES # (AUTO) 0.1 10^3/uL (0.0-1.0); MONOCYTES % (AUTO) 2.7 %; NEUTROPHILS % (AUTO) 80.4 %; PLT - PLATELET COUNT 175 10^3/uL (130-450); RED BLOOD COUNT 4.11 10^6/uL (4.20-5.40); RED CELL DISTRIBUTION WIDTH 13.5 % (12.0-15.0); WHITE BLOOD COUNT 3.7 x10^3/uL (4.8-10.8)
[2019-12-22 05:45] LABS: CALCIUM 9.1 mg/dL (8.5-10.3)
[2019-12-22] MEDS: methylPREDNISolone SUCCINATE 40 MG/ML VIAL IVP SCH ×3 (06:29→21:42)
[2019-12-22] MEDS: PANTOPRAZOLE 40 MG TABLET PO SCH (06:30)
[2019-12-22] MEDS: BUDESONIDE 0.5 MG/2 ML NEB INH SCH ×2 (07:34→20:18)
[2019-12-22] MEDS: IPRATROPIUM/ALBUTEROL 3 ML NEB INH PRN (07:34)
[2019-12-22] MEDS: FORMOTEROL FUMARATE NEB 20 MCG/2 ML INH SCH ×2 (07:34→20:18)
[2019-12-22] MEDS: MULTIVITAMIN W/MINERALS TABLET PO SCH (08:18)
[2019-12-22] MEDS: TOLTERODINE LA 2 MG CAPSULE PO SCH (08:18)
[2019-12-22] MEDS: DOCUSATE SODIUM 250 MG CAPSULE PO SCH ×2 (08:18→21:42)
[2019-12-22] MEDS: LACTOBACILLUS RHAMNOSUS GG CAPSULE PO SCH (08:18)
[2019-12-22] MEDS: LOSARTAN 50 MG TABLET PO SCH (08:18)
[2019-12-22] MEDS: ASPIRIN EC 81 MG TABLET PO SCH (08:18)
[2019-12-22] MEDS: ENOXAPARIN 40 MG/0.4 ML SYRINGE SUBQ SCH (08:19)
[2019-12-22] MEDS: INSULIN GLARGINE 300 UNIT/3 ML PEN SUBQ SCH (08:20)
[2019-12-22] MEDS: INSULIN ASPART 300 UNIT/3 ML PEN SUBQ SCH ×3 (08:21→17:01)
[2019-12-22] MEDS: polyethylene glycoL 3350 17 GM PACKET PO SCH (08:26)
[2019-12-22] MEDS ORDERED: methylPREDNISolone SUCCINATE 40 MG/ML VIAL IVP SCH (09:00)
--- NOTE | 2019-12-22 11:11 | PROVIDER PROGRESS NOTE ---
Subjective - Prog Note Date Prog Note Date: 12/22/19 Prog Note Time: 11:08 - Subjective Pt reports feeling: No change (No events overnight. Reports feeling itchy, otherwise no complaints. Pain well controlled. Ambulating, up in chair.) Objective - Vital Signs/Intake & Output Vital Signs: Vital Signs x48h Temp Pulse Pulse Resp BP BP Pulse Ox 12/22/19 08:00 36.8 C 91 20 138/80 H 95 12/22/19 07:22 81 20 12/22/19 05:05 85 147/67 H 12/22/19 04:50 86 150/68 H 12/22/19 04:35 76 154/63 H 12/22/19 04:28 160/67 H 12/22/19 04:21 69 160/67 H 12/22/19 04:16 67 160/73 H 12/22/19 04:10 67 154/60 H 12/22/19 04:05 66 168/59 H 12/22/19 03:58 180/81 H 12/22/19 03:45 36.5 C 78 16 180/87 H 92 Intake & Output: Intake & Output 12/19/19 12/20/19 12/21/19 12/22/19 23:59 23:59 23:59 23:59 Intake Total 2972.5 2474 1800 710 Output Total 749 205 0036 1300 Balance 2372.5 1941 -757 -485 - Objective General Appearance: positive: No acute distress, Alert Eyes Bilateral: positive: PERRL, EOMI ENT: positive: Other (Hardware intact and stable. Mandible stable. Moderate ttp over the R parasymphysis. Intraoral wounds intact with no dehiscence. No V3 anesthesia. FOM moderate induration. Moderate ecchymosis of the premental skin. No wounds on the chest or shoulders from the fixation pins.) - Lab Results Fish Bones: 12/22/19 04:45 12/22/19 04:45 Other Labs: Lab Results x24hrs 12/22/19 12/22/19 12/22/19 Range/Units 08:14 07:52 04:45 WBC (4.8-10.8) x10^3/uL RBC (4.20-5.40) 10^6/uL Hgb (12.0-16.0) g/dL Hct (37.0-47.0) % MCV (81.0-99.0) fL MCH (27.0-31.0) pg MCHC (32.0-36.0) g/dL RDW (12.0-15.0) % Plt Count (130-450) 10^3/uL MPV (7.9-10.8) fL Neut # (Auto) (1.5-6.6) 10^3/uL Lymph # (Auto) (1.5-3.5) 10^3/uL [place] # (Auto) (0.0-1.0) 10^3/uL Eos # (Auto) (0.0-0.7) 10^3/uL Baso # (Auto) (0.0-0.1) 10^3/uL Absolute Nucleated RBC x10^3/uL Nucleated RBC % /100WBC Sodium 140 (135-145) mmol/L Potassium 3.9 (3.5-5.0) mmol/L Chloride 104 (101-111) mmol/L Carbon Dioxide 24 (21-32) mmol/L Anion Gap 12.0 (6-13) BUN 13 (6-20) mg/dL Creatinine 1.0 (0.4-1.0) mg/dL Estimated GFR (MDRD) 53 L (>89) Glucose 216 H (70-100) mg/dL POC Whole Bld Glucose 198 H 187 H (70 - 100) mg/dL Calcium 9.1 (8.5-10.3) mg/dL 12/22/19 12/21/19 12/21/19 Range/Units 04:45 21:33 16:55 WBC 3.7 L (4.8-10.8) x10^3/uL RBC 4.11 L (4.20-5.40) 10^6/uL Hgb 12.7 (12.0-16.0) g/dL Hct 38.2 (37.0-47.0) % MCV 92.9 (81.0-99.0) fL MCH 30.9 (27.0-31.0) pg MCHC 33.2 (32.0-36.0) g/dL RDW 13.5 (12.0-15.0) % Plt Count 175 (130-450) 10^3/uL MPV 11.0 H (7.9-10.8) fL Neut # (Auto) 3.0 (1.5-6.6) 10^3/uL Lymph # (Auto) 0.6 L (1.5-3.5) 10^3/uL [place] # (Auto) 0.1 (0.0-1.0) 10^3/uL Eos # (Auto) 0.0 (0.0-0.7) 10^3/uL Baso # (Auto) 0.0 (0.0-0.1) 10^3/uL Absolute Nucleated RBC 0.00 x10^3/uL Nucleated RBC % 0.0 /100WBC Sodium (135-145) mmol/L Potassium (3.5-5.0) mmol/L Chloride (101-111) mmol/L Carbon Dioxide (21-32) mmol/L Anion Gap (6-13) BUN (6-20) mg/dL Creatinine (0.4-1.0) mg/dL Estimated GFR (MDRD) (>89) Glucose (70-100) mg/dL POC Whole Bld Glucose 237 H 253 H (70 - 100) mg/dL Calcium (8.5-10.3) mg/dL 12/21/19 Range/Units 11:08 WBC (4.8-10.8) x10^3/uL RBC (4.20-5.40) 10^6/uL Hgb (12.0-16.0) g/dL Hct (37.0-47.0) % MCV (81.0-99.0) fL MCH (27.0-31.0) pg MCHC (32.0-36.0) g/dL RDW (12.0-15.0) % Plt Count (130-450) 10^3/uL MPV (7.9-10.8) fL Neut # (Auto) (1.5-6.6) 10^3/uL Lymph # (Auto) (1.5-3.5) 10^3/uL [place] # (Auto) (0.0-1.0) 10^3/uL Eos # (Auto) (0.0-0.7) 10^3/uL Baso # (Auto) (0.0-0.1) 10^3/uL Absolute Nucleated RBC x10^3/uL Nucleated RBC % /100WBC Sodium (135-145) mmol/L Potassium (3.5-5.0) mmol/L Chloride (101-111) mmol/L Carbon Dioxide (21-32) mmol/L Anion Gap (6-13) BUN (6-20) mg/dL Creatinine (0.4-1.0) mg/dL Estimated GFR (MDRD) (>89) Glucose (70-100) mg/dL POC Whole Bld Glucose 168 H (70 - 100) mg/dL Calcium (8.5-10.3) mg/dL Assessment/Plan - Problem List (1) Pathological fracture of mandible Impression: POD #3 following a normal postop course - ORIF of the right mandibular parasymphysis via trans-cervical approach on Wednesday - continue IV abx - continue wound care BID - continue chlorhexidine mouthrinse BID Please call with any questions Renny Magdaleno DDS [phone]
[2019-12-22] MEDS: BACITRACIN ZINC OINT 1 PACKET TOP SCH ×2 (11:21→21:42)
[2019-12-22] MEDS: CHLORHEXIDINE GLUCONATE 15 ML UDC PO SCH ×2 (11:21→21:42)
--- NOTE | 2019-12-22 18:12 | PROVIDER PROGRESS NOTE ---
Assessment/Plan - Problem List (1) Cellulitis of submental space Assessment/Plan: 12/21 stable, pt denies fever, chill. continue followup surgeon. drainage culture no fungus, AFB is negative as preliminary. continue antibiotics, and pain control, continue dress change as surgeon's instruction 12/20 pt has no fever or chill. drainage fluid culture is still pending, continue antibiotics. 12/19 pt feel better, she denies fever, chill. culture of drainage is still pending. continue antibiotics followup surgeon 12/19/2019 pt is s/p procedure of I/D from submental space, drainage fluid was send to culture and staining by surgeon continue antibiotics continue gently IVF (2) COPD (chronic obstructive pulmonary disease) Conclusion/Plan: 12/21 pt report her breathing is better. today pt has 95% sats on 2 liter of O2, improved. pt's wheezing sound is reduced. continue and reduce Solu-metrol to 30 mg bid continue breathing treatment 12/20, pt present mild to moderate wheezing, pt is still needing oxygen supplement. pt did not take at her home. add IV of lower dosage steroid continue breathing treatment 12/19 stable, continue breathing treatment as needed 12/18 pt's sat is slightly reduced. order CXR, will followup continue home medications (or equvalical), pulmocort breath treatment. (3) Mandibular body fracture 12/21 stable, followup surgeon, pain control 12/20 continue pain control, followup surgeon 12/19 pt report her pain control is better. continue dress change, per surgeon's instruction continue full liquid diet, consult with associate manager affiliate marketing, incentive spirometer, dressing change per surgeon's instruction, nurse for skin care, encourage pt out of bed and encourage pt for safely ambulation 12/18 surgeon Removal of failed implant, Deep bone biopsy of the anterior mandible, and Stabilization of mandible fracture with external pin fixation. Per surgeon, pt will have definitive reconstruction with a custom reconstruction p late in about seven days, surgeon recommend pt continue to be treated in hospital until next procedure. continue pain control, and followup surgeon. start with full liquid diet, consult with associate manager affiliate marketing, incentive spirometer, dressing change per surgeon's instruction, nurse skin care, out of bed and encourage for safely ambulation (4) Type 2 diabetes mellitus 12/21, glucose level increased because of steroid usage, increase SSI level, continue ACHS and hypoglycemia protocol 12/19 glucose level is controlled now, continue Lantus and SSI 12/18 uncontrolled. pt has 10.7 A1C. start Lantus, and SSI, ACHS, and hypoglycemia protocol (5) Rheumatoid arthritis Conclusion/Plan: stable, continue home meds. pt is Not on fdc immunosuppressive medications. (6) Chronic renal disease Conclusion/Plan: 12/18 Improved. she has Baseline GFR 30-35. continue hydration and lab monitor - Current Meds Current Meds: Current Medications Generic Name Dose Route Start Last Admin Trade Name Freq PRN Reason Stop Dose Admin Acetaminophen 650 mg 12/14/19 18:29 12/20/19 09:34 Tylenol PO 650 mg Q4HR PRN Administration Pain 1 to 4 Albuterol/Ipratropium 3 ml 12/14/19 20:05 12/22/19 07:34 Duoneb INH 3 ml Q4HR PRN Administration Wheezing Aspirin 81 mg 12/19/19 09:00 12/22/19 08:18 Ecotrin PO 81 mg DAILY LESLY Administration Atorvastatin Calcium 40 mg 12/14/19 21:00 12/21/19 21:44 Lipitor PO 40 mg QPM LESLY Administration Bacitracin 1 packet 12/19/19 21:00 12/22/19 11:21 Bacitracin TOP 1 packet BID LESLY Administration Budesonide 0.5 mg 12/15/19 07:00 12/22/19 07:34 Pulmicort INH 0.5 mg RTBID LESLY Administration Chlorhexidine Gluconate 15 ml 12/19/19 21:00 12/22/19 11:21 Peridex PO 15 ml BID LESLY Administration Diphenhydramine HCl 25 mg 12/21/19 15:49 12/21/19 16:14 Benadryl PO 25 mg Q4HR PRN Administration Allergy Symptoms Docusate Sodium 250 - 500 mg 12/17/19 09:00 12/22/19 08:18 Colace 250mg Capsule PO 250 mg BID LESLY Administration Enoxaparin Sodium 40 mg 12/15/19 09:00 12/22/19 08:19 Lovenox SUBQ 40 mg DAILY LESLY Administration Formoterol Fumarate 20 mcg 12/15/19 07:00 12/22/19 07:34 Perforomist INH 20 mcg RTBID LESLY Administration Gabapentin 900 mg 12/14/19 21:00 12/21/19 21:44 Neurontin PO 900 mg QPM LESLY Administration Hydralazine HCl 10 mg 12/19/19 18:31 12/22/19 03:58 Apresoline Inj IVP 10 mg QID PRN Administration Hypertensive Emergency Clindamycin Phosphate 50 mls @ 100 mls/hr 12/14/19 19:00 12/22/19 17:57 Cleocin 600 Mg/50 Ml IV 100 mls/hr Q6HR LESLY Administration Insulin Aspart 1 - 9 unit 12/20/19 08:00 12/22/19 17:01 Novolog SUBQ 5 unit 0800,1200,1700,2100 LESLY Administration Protocol Insulin Glargine 10 unit 12/18/19 09:00 12/22/19 08:20 Lantus Solostar SUBQ 10 unit DAILY LESLY Administration Lactobacillus Rhamnosus 1 cap 12/15/19 09:00 12/22/19 08:18 Culturelle PO 1 cap DAILY LESLY Administration Losartan Potassium 50 mg 12/20/19 09:00 12/22/19 08:18 Cozaar PO 50 mg DAILY LESLY Administration Methylprednisolone 30 mg 12/22/19 16:00 12/22/19 16:29 Solu-Medrol (40mg Vial) IVP 30 mg BID LESLY Administration Morphine Sulfate 2 mg 12/19/19 15:58 12/19/19 20:36 Morphine (Carpuject) IVP 2 mg Q2HR PRN Administration PAIN Multivitamins/Minerals 1 tab 12/22/19 08:00 12/22/19 08:18 Theragran M PO 1 tab DAILYWM LESLY Administration Oxycodone HCl 5 mg 12/17/19 14:46 12/21/19 05:00 Roxicodone PO 5 mg Q6HR PRN Administration PAIN Pantoprazole Sodium 40 mg 12/15/19 07:00 12/22/19 06:30 Protonix PO 40 mg QDAC LESLY Administration Polyethylene Glycol 17 gm 12/16/19 09:00 12/22/19 08:26 Miralax PO Not Given DAILY LESLY Sodium Chloride 10 ml 12/15/19 01:00 12/22/19 16:29 Normal Saline Flush 0.9% IVP 10 ml 0100,0900,1700 LESLY Administration Sodium Chloride 10 ml 12/14/19 19:49 04/23/20 06:17 Normal Saline Flush 0.9% IVP 10 ml PRN PRN Administration NEEDED PER PROVIDER ORDERS Throat Lozenges 1 lozenge 12/17/19 19:25 12/20/19 09:23 Cepacol MM 1 lozenge Q2HR PRN Administration Throat pain Tolterodine Tartrate 2 mg 12/15/19 09:00 12/22/19 08:18 Detrol La PO 2 mg DAILY LESLY Administration - Lab Result Fish Bone Diagrams: 12/22/19 04:45 12/22/19 04:45 - Additional Planning My Orders: My Active Orders 12/22/19 08:00 Multivitamin W/Minerals [Theragran M] 1 tab PO DAILYWM 12/22/19 16:00 methylPREDNISolone SUCCINATE [SOLU-Medrol (40MG VIAL)] 30 mg IVP BID Subjective - Subjective Patient Reports: Feeling Better Objective Vital Signs: Vital Signs - 24 hr 12/21/19 12/21/19 12/22/19 19:52 23:47 03:45 Temperature 36.5 C 36.5 C Heart Rate 75 Heart Rate [ 75 78 Brachial] Respiratory 14 18 16 Rate Blood Pressure Blood Pressure 183/78 H 180/87 H [Right Brachial artery] O2 Saturation 94 92 12/22/19 12/22/19 12/22/19 03:58 04:05 04:10 Temperature Heart Rate Heart Rate [ 66 67 Brachial] Respiratory Rate Blood Pressure 180/81 H Blood Pressure 168/59 H 154/60 H [Right Brachial artery] O2 Saturation 12/22/19 12/22/19 12/22/19 04:16 04:21 04:28 Temperature Heart Rate Heart Rate [ 67 69 Brachial] Respiratory Rate Blood Pressure 160/67 H Blood Pressure 160/73 H 160/67 H [Right Brachial artery] O2 Saturation 12/22/19 12/22/19 12/22/19 04:35 04:50 05:05 Temperature Heart Rate Heart Rate [ 76 86 85 Brachial] Respiratory Rate Blood Pressure Blood Pressure 154/63 H 150/68 H 147/67 H [Right Brachial artery] O2 Saturation 12/22/19 12/22/19 12/22/19 07:22 08:00 12:47 Temperature 36.8 C 36.5 C Heart Rate 81 Heart Rate [ 91 92 Brachial] Respiratory 20 20 20 Rate Blood Pressure Blood Pressure 138/80 H 119/91 H [Right Brachial artery] O2 Saturation 95 94 12/22/19 12/22/19 16:00 16:39 Temperature 36.6 C Heart Rate Heart Rate [ 88 Brachial] Respiratory 19 Rate Blood Pressure Blood Pressure 124/58 L [Right Brachial artery] O2 Saturation 95 93 Oxygen O2 Source Nasal cannula I&O (Last 24 Hrs): Intake and Output Totals x24h 12/20/19 12/21/19 12/22/19 23:59 23:59 23:59 Intake Total 2474 1800 1450 Output Total 525 2550 1400 Balance 1949 -750 50 General: Alert, No acute distress HEENT: Atraumatic Neck: Supple Lymphatic: no adenopathy Neuro: Alert, Non Focal, Oriented Times 3 Cardiovascular: Regular rate, Normal S1, Normal S2 Respiratory: Chest non-tender, No respiratory distress Abdomen: Normal bowel sounds, Soft Extremities: Normal pulses - Results Results: Laboratory Results WBC 3.7 x10^3/uL (4.8-10.8) L 12/22/19 04:45 RBC 4.11 10^6/uL (4.20-5.40) L 12/22/19 04:45 Hgb 12.7 g/dL (12.0-16.0) 12/22/19 04:45 Hct 38.2 % (37.0-47.0) 12/22/19 04:45 MCV 92.9 fL (81.0-99.0) 12/22/19 04:45 MCH 30.9 pg (27.0-31.0) 12/22/19 04:45 MCHC 33.2 g/dL (32.0-36.0) 12/22/19 04:45 RDW 13.5 % (12.0-15.0) 12/22/19 04:45 Plt Count 175 10^3/uL (130-450) 12/22/19 04:45 MPV 11.0 fL (7.9-10.8) H 12/22/19 04:45 Neut # (Auto) 3.0 10^3/uL (1.5-6.6) 12/22/19 04:45 Lymph # (Auto) 0.6 10^3/uL (1.5-3.5) L 12/22/19 04:45 [place] # (Auto) 0.1 10^3/uL (0.0-1.0) 12/22/19 04:45 Eos # (Auto) 0.0 10^3/uL (0.0-0.7) 12/22/19 04:45 Baso # (Auto) 0.0 10^3/uL (0.0-0.1) 12/22/19 04:45 Absolute Nucleated RBC 0.00 x10^3/uL 12/22/19 04:45 Nucleated RBC % 0.0 /100WBC 12/22/19 04:45 Sodium 140 mmol/L (135-145) 12/22/19 04:45 Potassium 3.9 mmol/L (3.5-5.0) 12/22/19 04:45 Chloride 104 mmol/L (101-111) 12/22/19 04:45 Carbon Dioxide 24 mmol/L (21-32) 12/22/19 04:45 Anion Gap 12.0 (6-13) 12/22/19 04:45 BUN 13 mg/dL (6-20) 12/22/19 04:45 Creatinine 1.0 mg/dL (0.4-1.0) 12/22/19 04:45 Estimated GFR (MDRD) 53 (>89) L 12/22/19 04:45 Glucose 216 mg/dL (70-100) H 12/22/19 04:45 POC Whole Bld Glucose 236 mg/dL (70 - 100) H 12/22/19 16:26 Glycated Hemoglobin 10.7 % (4.6-6.2) H 12/14/19 19:38 Estim Average Glucose 260 (70-100) H 12/14/19 19:38 Calcium 9.1 mg/dL (8.5-10.3) 12/22/19 04:45 ABX Reporting Has patient been on IV antibiotics over the past 48 hours?: Yes Current Medications - Current Medications Current Medications: Active Medications Acetaminophen (Tylenol) 650 mg PO Q4HR PRN PRN Reason: Pain 1 to 4 Last Admin: 12/20/19 09:34 Dose: 650 mg Albuterol () 2.5 mg INH RTQ4H PRN PRN Reason: Wheezing Albuterol/Ipratropium (Duoneb) 3 ml INH Q4HR PRN PRN Reason: Wheezing Last Admin: 12/22/19 07:34 Dose: 3 ml Aspirin (Ecotrin) 81 mg PO DAILY [facility] Last Admin: 12/22/19 08:18 Dose: 81 mg Atorvastatin Calcium (Lipitor) 40 mg PO QPM [facility] Last Admin: 12/21/19 21:44 Dose: 40 mg Bacitracin (Bacitracin) 1 packet TOP BID [facility] Last Admin: 12/22/19 11:21 Dose: 1 packet Budesonide (Pulmicort) 0.5 mg INH RTBID [facility] Last Admin: 12/22/19 07:34 Dose: 0.5 mg Carboxymethylcellulose (Refresh 1% Ophth Drops) 1 drops EACHEYE PRN PRN PRN Reason: Dry Eye Chlorhexidine Gluconate (Peridex) 15 ml PO BID [facility] Last Admin: 12/22/19 11:21 Dose: 15 ml Diphenhydramine HCl (Benadryl) 25 mg PO Q4HR PRN PRN Reason: Allergy Symptoms Last Admin: 12/21/19 16:14 Dose: 25 mg Docusate Sodium (Colace 250mg Capsule) 250 - 500 mg PO BID [facility] Last Admin: 12/22/19 08:18 Dose: 250 mg Enoxaparin Sodium (Lovenox) 40 mg SUBQ DAILY [facility] Last Admin: 12/22/19 08:19 Dose: 40 mg Formoterol Fumarate (Perforomist) 20 mcg INH RTBID [facility] Last Admin: 12/22/19 07:34 Dose: 20 mcg Gabapentin (Neurontin) 900 mg PO QPM [facility] Last Admin: 12/21/19 21:44 Dose: 900 mg Hydralazine HCl (Apresoline Inj) 10 mg IVP QID PRN PRN Reason: Hypertensive Emergency Last Admin: 12/22/19 03:58 Dose: 10 mg Clindamycin Phosphate (Cleocin 600 Mg/50 Ml) 50 mls @ 100 mls/hr IV Q6HR [facility] Last Admin: 12/22/19 17:57 Dose: 100 mls/hr Insulin Aspart (Novolog) 2 - 10 unit SUBQ 0800,1200,1700,2100 LESLY; Protocol Insulin Glargine (Lantus Solostar) 10 unit SUBQ DAILY [facility] Last Admin: 12/22/19 08:20 Dose: 10 unit Lactobacillus Rhamnosus (Culturelle) 1 cap PO DAILY [facility] Last Admin: 12/22/19 08:18 Dose: 1 cap Losartan Potassium (Cozaar) 50 mg PO DAILY [facility] Last Admin: 12/22/19 08:18 Dose: 50 mg Methylprednisolone (Solu-Medrol (40mg Vial)) 30 mg IVP BID [facility] Last Admin: 12/22/19 16:29 Dose: 30 mg Mineral Oil (Cavilon) 1 applic TOP PRN PRN PRN Reason: Skin Care Morphine Sulfate (Morphine (Carpuject)) 2 mg IVP Q2HR PRN PRN Reason: PAIN Last Admin: 12/19/19 20:36 Dose: 2 mg Multi-Ingredient Ointment (Zinc Oxide) 1 applic TOP PRN PRN PRN Reason: Skin Care Multivitamins/Minerals (Theragran M) 1 tab PO DAILYWM [facility] Last Admin: 12/22/19 08:18 Dose: 1 tab Oxycodone HCl (Roxicodone) 5 mg PO Q6HR PRN PRN Reason: PAIN Last Admin: 12/21/19 05:00 Dose: 5 mg Pantoprazole Sodium (Protonix) 40 mg PO QDAC [facility] Last Admin: 12/22/19 06:30 Dose: 40 mg Polyethylene Glycol (Miralax) 17 gm PO DAILY [facility] Last Admin: 12/22/19 08:26 Dose: Not Given Sodium Chloride (Normal Saline Flush 0.9%) 10 ml IVP 0100,0900,1700 [facility] Last Admin: 12/22/19 16:29 Dose: 10 ml Sodium Chloride (Normal Saline Flush 0.9%) 10 ml IVP PRN PRN PRN Reason: NEEDED PER PROVIDER ORDERS Last Admin: 12/21/19 06:17 Dose: 10 ml Throat Lozenges (Cepacol) 1 lozenge MM Q2HR PRN PRN Reason: Throat pain Last Admin: 12/20/19 09:23 Dose: 1 lozenge Tolterodine Tartrate (Detrol La) 2 mg PO DAILY [facility] Last Admin: 12/22/19 08:18 Dose: 2 mg Wheat Dextrin (Benefiber) 1 packet PO DAILY PRN PRN Reason: Constipation Albuterol Sulfate [Proair Hfa Inhaler] 1 puffs INH Q4H PRN 12/14/19 Aspirin [Aspirin EC] 81 mg PO DAILY 12/14/19 Atorvastatin [Lipitor] 40 mg PO DAILY 12/14/19 Clindamycin HCl [Clindamycin 300MG CAP] 300 mg PO TID 12/14/19 Fluticasone/Salmeterol [Advair 250-50 Diskus] 1 puffs INH BID 12/14/19 Gabapentin 900 mg PO DAILY PM 12/14/19 Insulin Aspart [NovoLOG] 10 units INJ TIDWM 12/14/19 Insulin Glargine [Lantus Solostar] 28 units INJ DAILY 12/14/19 Omeprazole 20 mg PO DAILY 12/14/19 Telmisartan [Micardis] 10 mg PO DAILY 12/14/19 Tiotropium [place] [Spiriva Respimat] 4 gm IH DAILY 12/14/19 Tolterodine Tartrate [Detrol LA] 2 mg PO DAILY 12/14/19
[2019-12-22] MEDS: diphenhydrAMINE 25 MG CAPSULE PO PRN (18:42)
[2019-12-22] MEDS ORDERED: INSULIN ASPART 300 UNIT/3 ML PEN SUBQ SCH (21:00)
[2019-12-22] MEDS: ATORVASTATIN 40 MG TABLET PO SCH (21:42)
[2019-12-22] MEDS: GABAPENTIN 300 MG CAPSULE PO SCH (21:42)
[2019-12-23] MEDS: SODIUM CHLORIDE FLUSH 0.9% 10 ML SYRINGE IVP SCH ×3 (00:02→22:47)
[2019-12-23] MEDS: CLINDAMYCIN 600 MG/50 ML 50 ML IV SCH ×3 (00:04→11:46)
[2019-12-23] MEDS: SODIUM CHLORIDE FLUSH 0.9% 10 ML SYRINGE IVP PRN ×3 (00:30→06:26)
[2019-12-23] MEDS: PANTOPRAZOLE 40 MG TABLET PO SCH (06:00)
[2019-12-23] MEDS ORDERED: INSULIN ASPART 300 UNIT/3 ML PEN SUBQ SCH (08:00)
[2019-12-23] MEDS: polyethylene glycoL 3350 17 GM PACKET PO SCH (08:33)
[2019-12-23] MEDS: FORMOTEROL FUMARATE NEB 20 MCG/2 ML INH SCH ×2 (08:35→20:04)
[2019-12-23] MEDS: BUDESONIDE 0.5 MG/2 ML NEB INH SCH ×2 (08:45→20:04)
[2019-12-23] MEDS: INSULIN GLARGINE 300 UNIT/3 ML PEN SUBQ SCH (09:02)
[2019-12-23] MEDS: INSULIN ASPART 300 UNIT/3 ML PEN SUBQ SCH ×4 (09:03→22:46)
[2019-12-23] MEDS: ENOXAPARIN 40 MG/0.4 ML SYRINGE SUBQ SCH (09:07)
[2019-12-23] MEDS: methylPREDNISolone SUCCINATE 40 MG/ML VIAL IVP SCH ×2 (09:08→22:45)
[2019-12-23] MEDS: ASPIRIN EC 81 MG TABLET PO SCH (09:13)
[2019-12-23] MEDS: LACTOBACILLUS RHAMNOSUS GG CAPSULE PO SCH (09:13)
[2019-12-23] MEDS: MULTIVITAMIN W/MINERALS TABLET PO SCH (09:13)
[2019-12-23] MEDS: LOSARTAN 50 MG TABLET PO SCH (09:13)
[2019-12-23] MEDS: TOLTERODINE LA 2 MG CAPSULE PO SCH (09:13)
[2019-12-23] MEDS: CHLORHEXIDINE GLUCONATE 15 ML UDC PO SCH ×2 (09:14→22:47)
--- NOTE | 2019-12-23 10:44 | PROVIDER PROGRESS NOTE ---
Assessment/Plan - Problem List (1) Cellulitis of submental space Assessment/Plan: Culture of the specimen taken at surgery was negative for acid-fast bacilli and for fungi. Otherwise cultures are still pending. She remains on empiric antibiotics. (2) Pathological fracture of mandible Assessment/Plan: Day is POD #4 after surgery done by Dr. Renny Arias to manage this. Continue may pain meds as needed. Continue with altered diet as Dr Magdaleno want (3) COPD with exacerbation Assessment/Plan: She is on various nebs, incentive spirometry postop as well. She is on Solu-Medrol and the last provider started her on a tapering down schedule. Will continue with a slow taper which will help the glu control. (4) Type 2 diabetes mellitus Qualifiers: Diabetes mellitus intermediate accountant insulin use: with detention use Diabetes mellitus complication status: with kidney complications Assessment/Plan: Continue CC diet, long-acting and regular insulin coverage, the scale needed to be increased because of higher glucose levels, probably related to being on steroids for COPD. (5) Rheumatoid arthritis Assessment/Plan: She was not on immunosuppressants but is currently on steroids. Perhaps her chronic neutropenia is related to RA (6) CKD (chronic kidney disease) Assessment/Plan: Was admitted with a creatinine of 1.6, this is now normalized to 1.0 today on IV fluids then oral hydration. Follow BMP daily. - Current Meds Current Meds: Current Medications Generic Name Dose Route Start Last Admin Trade Name Freq PRN Reason Stop Dose Admin Acetaminophen 650 mg 12/14/19 18:29 12/20/19 09:34 Tylenol PO 650 mg Q4HR PRN Administration Pain 1 to 4 Albuterol/Ipratropium 3 ml 12/14/19 20:05 12/22/19 07:34 Duoneb INH 3 ml Q4HR PRN Administration Wheezing Aspirin 81 mg 12/19/19 09:00 12/23/19 09:13 Ecotrin PO 81 mg DAILY LESLY Administration Atorvastatin Calcium 40 mg 12/14/19 21:00 12/22/19 21:42 Lipitor PO 40 mg QPM LESLY Administration Bacitracin 1 packet 12/19/19 21:00 12/22/19 21:42 Bacitracin TOP 1 packet BID LESLY Administration Budesonide 0.5 mg 12/15/19 07:00 12/23/19 08:45 Pulmicort INH 0.5 mg RTBID LESLY Administration Chlorhexidine Gluconate 15 ml 12/19/19 21:00 12/23/19 09:14 Peridex PO 15 ml BID LESLY Administration Diphenhydramine HCl 25 mg 12/21/19 15:49 12/22/19 18:42 Benadryl PO 25 mg Q4HR PRN Administration Allergy Symptoms Enoxaparin Sodium 40 mg 12/15/19 09:00 12/23/19 09:07 Lovenox SUBQ 40 mg DAILY LESLY Administration Formoterol Fumarate 20 mcg 12/15/19 07:00 12/23/19 08:35 Perforomist INH 20 mcg RTBID LESLY Administration Gabapentin 900 mg 12/14/19 21:00 12/22/19 21:42 Neurontin PO 900 mg QPM LESLY Administration Hydralazine HCl 10 mg 12/19/19 18:31 12/22/19 03:58 Apresoline Inj IVP 10 mg QID PRN Administration Hypertensive Emergency Clindamycin Phosphate 50 mls @ 100 mls/hr 12/14/19 19:00 12/23/19 06:26 Cleocin 600 Mg/50 Ml IV Infused Q6HR LESLY Infusion Insulin Aspart 3 - 11 unit 12/23/19 08:00 12/23/19 09:03 Novolog SUBQ 5 unit 0800,1200,1700,2100 LESLY Administration Protocol Insulin Glargine 10 unit 12/18/19 09:00 12/23/19 09:02 Lantus Solostar SUBQ 10 unit DAILY [facility] Administration Lactobacillus Rhamnosus 1 cap 12/15/19 09:00 12/23/19 09:13 Culturelle PO 1 cap DAILY [facility] Administration Losartan Potassium 50 mg 12/20/19 09:00 12/23/19 09:13 Cozaar PO 50 mg DAILY [facility] Administration Methylprednisolone 30 mg 12/22/19 16:00 12/23/19 09:08 Solu-Medrol (40mg Vial) IVP 30 mg BID LESLY Administration Morphine Sulfate 2 mg 12/19/19 15:58 12/19/19 20:36 Morphine (Carpuject) IVP 2 mg Q2HR PRN Administration PAIN Multivitamins/Minerals 1 tab 12/22/19 08:00 12/23/19 09:13 Theragran M PO 1 tab DAILYWM LESLY Administration Oxycodone HCl 5 mg 12/17/19 14:46 12/21/19 05:00 Roxicodone PO 5 mg Q6HR PRN Administration PAIN Pantoprazole Sodium 40 mg 12/15/19 07:00 12/23/19 06:00 Protonix PO 40 mg QDAC LESLY Administration Polyethylene Glycol 17 gm 12/16/19 09:00 12/23/19 08:33 Miralax PO Not Given DAILY [facility] Sodium Chloride 10 ml 12/15/19 01:00 12/23/19 09:09 Normal Saline Flush 0.9% IVP 10 ml 0100,0900,1700 LESLY Administration Sodium Chloride 10 ml 12/14/19 19:49 12/23/19 06:26 Normal Saline Flush 0.9% IVP 10 ml PRN PRN Administration NEEDED PER PROVIDER ORDERS Throat Lozenges 1 lozenge 12/17/19 19:25 12/20/19 09:23 Cepacol MM 1 lozenge Q2HR PRN Administration Throat pain Tolterodine Tartrate 2 mg 12/15/19 09:00 12/23/19 09:13 Detrol La PO 2 mg DAILY LESLY Administration - Lab Result Fish Bone Diagrams: 12/22/19 04:45 12/22/19 04:45 Subjective - Subjective Patient Reports: Other (Tolerating the diet and olther restrictions) Nursing Reports: Other (Glu checks are elevated especially since steroids started) Objective Vital Signs: Vital Signs - 24 hr 12/22/19 12/22/19 12/22/19 12:47 16:00 16:39 Temperature 36.5 C 36.6 C Heart Rate Heart Rate [ 92 88 Brachial] Respiratory 20 19 Rate Blood Pressure 119/91 H 124/58 L [Right Brachial artery] O2 Saturation 94 95 93 12/22/19 12/22/19 12/22/19 20:17 21:07 23:30 Temperature 36.8 C 37.1 C Heart Rate 74 Heart Rate [ 91 82 Brachial] Respiratory 16 18 16 Rate Blood Pressure 150/70 H 154/80 H [Right Brachial artery] O2 Saturation 92 92 12/23/19 12/23/19 07:39 09:08 Temperature 36.6 C Heart Rate 66 Heart Rate [ 67 Brachial] Respiratory 20 18 Rate Blood Pressure 142/64 H [Right Brachial artery] O2 Saturation 94 Oxygen O2 Source Nasal cannula I&O (Last 24 Hrs): Intake and Output Totals x24h 12/21/19 12/22/19 12/23/19 23:59 23:59 23:59 Intake Total 1800 1500 340 Output Total 2550 1400 300 Balance -750 100 40 General: No acute distress HEENT: Other ([place] has dark (purple) hematoma) Neuro: Non Focal Cardiovascular: Regular rate Respiratory: No respiratory distress Abdomen: Soft Extremities: No edema - Results Results: Laboratory Results WBC 3.7 x10^3/uL (4.8-10.8) L 12/22/19 04:45 RBC 4.11 10^6/uL (4.20-5.40) L 12/22/19 04:45 Hgb 12.7 g/dL (12.0-16.0) 12/22/19 04:45 Hct 38.2 % (37.0-47.0) 12/22/19 04:45 MCV 92.9 fL (81.0-99.0) 12/22/19 04:45 MCH 30.9 pg (27.0-31.0) 12/22/19 04:45 MCHC 33.2 g/dL (32.0-36.0) 12/22/19 04:45 RDW 13.5 % (12.0-15.0) 12/22/19 04:45 Plt Count 175 10^3/uL (130-450) 12/22/19 04:45 MPV 11.0 fL (7.9-10.8) H 12/22/19 04:45 Neut # (Auto) 3.0 10^3/uL (1.5-6.6) 12/22/19 04:45 Lymph # (Auto) 0.6 10^3/uL (1.5-3.5) L 12/22/19 04:45 [place] # (Auto) 0.1 10^3/uL (0.0-1.0) 12/22/19 04:45 Eos # (Auto) 0.0 10^3/uL (0.0-0.7) 12/22/19 04:45 Baso # (Auto) 0.0 10^3/uL (0.0-0.1) 12/22/19 04:45 Absolute Nucleated RBC 0.00 x10^3/uL 12/22/19 04:45 Nucleated RBC % 0.0 /100WBC 12/22/19 04:45 Sodium 140 mmol/L (135-145) 12/22/19 04:45 Potassium 3.9 mmol/L (3.5-5.0) 12/22/19 04:45 Chloride 104 mmol/L (101-111) 12/22/19 04:45 Carbon Dioxide 24 mmol/L (21-32) 12/22/19 04:45 Anion Gap 12.0 (6-13) 12/22/19 04:45 BUN 13 mg/dL (6-20) 12/22/19 04:45 Creatinine 1.0 mg/dL (0.4-1.0) 12/22/19 04:45 Estimated GFR (MDRD) 53 (>89) L 12/22/19 04:45 Glucose 216 mg/dL (70-100) H 12/22/19 04:45 POC Whole Bld Glucose 223 mg/dL (70 - 100) H 12/23/19 07:36 Glycated Hemoglobin 10.7 % (4.6-6.2) H 12/14/19 19:38 Estim Average Glucose 260 (70-100) H 12/14/19 19:38 Calcium 9.1 mg/dL (8.5-10.3) 12/22/19 04:45
[2019-12-23] MEDS: BACITRACIN ZINC OINT 1 PACKET TOP SCH ×2 (11:43→22:47)
[2019-12-23] MEDS: cefTRIAXone 1 GM in SODIUM CHLORIDE 0.9% MINIBAG 100 ML IV SCH (15:03)
[2019-12-23] MEDS: diphenhydrAMINE 25 MG CAPSULE PO PRN (19:57)
[2019-12-23] MEDS: GABAPENTIN 300 MG CAPSULE PO SCH (22:45)
[2019-12-23] MEDS: ATORVASTATIN 40 MG TABLET PO SCH (22:46)
[2019-12-23] MEDS: ACETAMINOPHEN 325 MG TABLET PO PRN (22:59)
[2019-12-24] MEDS: SODIUM CHLORIDE FLUSH 0.9% 10 ML SYRINGE IVP SCH ×4 (00:17→23:40)
[2019-12-24] MEDS: BENZOCAINE/MENTHOL LOZENGE MM PRN ×2 (02:07→06:55)
[2019-12-24 05:13] LABS: BASOPHILS % (AUTO) 0.4 %; EOSINOPHILS % (AUTO) 0.8 %; HGB - HEMOGLOBIN 13.2 g/dL (12.0-16.0); LYMPHOCYTES # (AUTO) 0.7 10^3/uL (1.5-3.5); LYMPHOCYTES % (AUTO) 13.5 %; MEAN CORPUSCULAR HEMOGLOBIN 30.3 pg (27.0-31.0); MEAN CORPUSCULAR HGB CONC 32.7 g/dL (32.0-36.0); MEAN CORPUSCULAR VOLUME 92.7 fL (81.0-99.0); MEAN PLATELET VOLUME 10.8 fL (7.9-10.8); MONOCYTES # (AUTO) 0.3 10^3/uL (0.0-1.0); MONOCYTES % (AUTO) 6.3 %; NEUTROPHILS % (AUTO) 78.6 %; PLT - PLATELET COUNT 209 10^3/uL (130-450); RED BLOOD COUNT 4.36 10^6/uL (4.20-5.40); RED CELL DISTRIBUTION WIDTH 13.9 % (12.0-15.0); WHITE BLOOD COUNT 5.1 x10^3/uL (4.8-10.8)
[2019-12-24 05:21] LABS: CALCIUM 9.3 mg/dL (8.5-10.3); CREATININE 1.1 mg/dL (0.4-1.0)
[2019-12-24] MEDS: PANTOPRAZOLE 40 MG TABLET PO SCH (06:44)
[2019-12-24] MEDS: BUDESONIDE 0.5 MG/2 ML NEB INH SCH ×2 (09:06→19:28)
[2019-12-24] MEDS: FORMOTEROL FUMARATE NEB 20 MCG/2 ML INH SCH ×2 (09:06→19:28)
[2019-12-24] MEDS: IPRATROPIUM/ALBUTEROL 3 ML NEB INH PRN (09:06)
[2019-12-24] MEDS: TOLTERODINE LA 2 MG CAPSULE PO SCH (10:03)
[2019-12-24] MEDS: ASPIRIN EC 81 MG TABLET PO SCH (10:03)
[2019-12-24] MEDS: methylPREDNISolone SUCCINATE 40 MG/ML VIAL IVP SCH ×2 (10:03→21:09)
[2019-12-24] MEDS: polyethylene glycoL 3350 17 GM PACKET PO SCH (10:04)
[2019-12-24] MEDS: LOSARTAN 50 MG TABLET PO SCH (10:04)
[2019-12-24] MEDS: MULTIVITAMIN W/MINERALS TABLET PO SCH (10:05)
[2019-12-24] MEDS: LACTOBACILLUS RHAMNOSUS GG CAPSULE PO SCH (10:05)
[2019-12-24] MEDS: ENOXAPARIN 40 MG/0.4 ML SYRINGE SUBQ SCH (10:05)
[2019-12-24] MEDS: cefTRIAXone 1 GM in SODIUM CHLORIDE 0.9% MINIBAG 100 ML IV SCH (10:05)
[2019-12-24] MEDS: INSULIN GLARGINE 300 UNIT/3 ML PEN SUBQ SCH (10:09)
[2019-12-24] MEDS: BACITRACIN ZINC OINT 1 PACKET TOP SCH ×2 (10:09→21:08)
[2019-12-24] MEDS: INSULIN ASPART 300 UNIT/3 ML PEN SUBQ SCH ×4 (10:10→21:06)
[2019-12-24] MEDS: CHLORHEXIDINE GLUCONATE 15 ML UDC PO SCH ×2 (11:30→21:07)
--- NOTE | 2019-12-24 14:25 | PROVIDER PROGRESS NOTE ---
Assessment/Plan - Problem List (1) Streptococcus viridans infection Assessment/Plan: Yesterday the wound specimen from the jaw surgery grew Strep viridens which is resistant to the clindamycin that she has been on for the past 5 days. Ceftriaxone IV was started yesterday which the bacteria is sensitive to. (2) Cellulitis of submental space Assessment/Plan: She required surgery 5 days ago. There is a repeat surgery pending. Continue with pain management and antibiotics (3) Pathological fracture of mandible Assessment/Plan: Repeat surgery is scheduled on Wednesday12/26/19 (4) COPD with exacerbation Assessment/Plan: Will taper down her steroids quickly since she is very comfortable now. 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 - Current Meds Current Meds: Current Medications Generic Name Dose Route Start Last Admin Trade Name Freq PRN Reason Stop Dose Admin Acetaminophen 650 mg 12/14/19 18:29 12/23/19 22:59 Tylenol PO 650 mg Q4HR PRN Administration Pain 1 to 4 Albuterol/Ipratropium 3 ml 12/14/19 20:05 12/24/19 09:06 Duoneb INH 3 ml Q4HR PRN Administration Wheezing Aspirin 81 mg 12/19/19 09:00 12/24/19 10:03 Ecotrin PO 81 mg DAILY LESLY Administration Atorvastatin Calcium 40 mg 12/14/19 21:00 12/23/19 22:46 Lipitor PO 40 mg QPM LESLY Administration Bacitracin 1 packet 12/19/19 21:00 12/24/19 10:09 Bacitracin TOP 1 packet BID LESLY Administration Budesonide 0.5 mg 12/15/19 07:00 12/24/19 09:06 Pulmicort INH 0.5 mg RTBID LESLY Administration Chlorhexidine Gluconate 15 ml 12/19/19 21:00 12/24/19 11:30 Peridex PO 15 ml BID LESLY Administration Diphenhydramine HCl 25 mg 12/21/19 15:49 12/23/19 19:57 Benadryl PO 25 mg Q4HR PRN Administration Allergy Symptoms Enoxaparin Sodium 40 mg 12/15/19 09:00 12/24/19 10:05 Lovenox SUBQ 40 mg DAILY LESLY Administration Formoterol Fumarate 20 mcg 12/15/19 07:00 12/24/19 09:06 Perforomist INH 20 mcg RTBID LESLY Administration Gabapentin 900 mg 12/14/19 21:00 12/23/19 22:45 Neurontin PO 900 mg QPM LESLY Administration Hydralazine HCl 10 mg 12/19/19 18:31 12/22/19 03:58 Apresoline Inj IVP 10 mg QID PRN Administration Hypertensive Emergency Ceftriaxone Sodium 1 gm/ 100 mls @ 200 mls/hr 12/23/19 14:30 12/24/19 12:02 Sodium Chloride IV Infused DAILY LESLY Infusion Insulin Aspart 3 - 11 unit 12/23/19 08:00 12/24/19 12:00 Novolog SUBQ 5 unit 0800,1200,1700,2100 LESLY Administration Protocol Insulin Glargine 10 unit 12/18/19 09:00 12/24/19 10:09 Lantus Solostar SUBQ 10 unit DAILY LESLY Administration Lactobacillus Rhamnosus 1 cap 12/15/19 09:00 12/24/19 10:05 Culturelle PO 1 cap DAILY LESLY Administration Losartan Potassium 50 mg 12/20/19 09:00 12/24/19 10:04 Cozaar PO 50 mg DAILY LESLY Administration Methylprednisolone 30 mg 12/22/19 16:00 12/24/19 10:03 Solu-Medrol (40mg Vial) IVP 12/25/19 00:00 30 mg BID LESLY Administration Mineral Oil 1 applic 12/17/19 19:25 12/24/19 02:08 Cavilon TOP 1 applic PRN PRN Administration Skin Care Morphine Sulfate 2 mg 12/19/19 15:58 12/19/19 20:36 Morphine (Carpuject) IVP 2 mg Q2HR PRN Administration PAIN Multivitamins/Minerals 1 tab 12/22/19 08:00 12/24/19 10:05 Theragran M PO 1 tab DAILYWM LESLY Administration Oxycodone HCl 5 mg 12/17/19 14:46 12/21/19 05:00 Roxicodone PO 5 mg Q6HR PRN Administration PAIN Pantoprazole Sodium 40 mg 12/15/19 07:00 12/24/19 06:44 Protonix PO 40 mg QDAC LESLY Administration Polyethylene Glycol 17 gm 12/16/19 09:00 12/24/19 10:04 Miralax PO Not Given DAILY LESLY Sodium Chloride 10 ml 12/15/19 01:00 12/24/19 10:04 Normal Saline Flush 0.9% IVP 10 ml 0100,0900,1700 LESLY Administration Sodium Chloride 10 ml 12/14/19 19:49 12/23/19 06:26 Normal Saline Flush 0.9% IVP 10 ml PRN PRN Administration NEEDED PER PROVIDER ORDERS Throat Lozenges 1 lozenge 12/17/19 19:25 12/24/19 06:55 Cepacol MM 1 lozenge Q2HR PRN Administration Throat pain Tolterodine Tartrate 2 mg 12/15/19 09:00 12/24/19 10:03 Detrol La PO 2 mg DAILY LESLY Administration - Lab Result Fish Bone Diagrams: 12/24/19 04:55 12/24/19 04:55 - Additional Planning My Orders: My Active Orders 12/23/19 14:30 [email or web address] [Rocephin] 1 gm Sodium Chloride 0.9% Minibag [Normal Saline 0.9% Minibag] 100 ml IV DAILY 12/25/19 09:00 methylPREDNISolone SUCCINATE [SOLU-Medrol (40MG VIAL)] 40 mg IVP DAILY Subjective - Subjective Patient Reports: Resting Comfortably (Tolerating the altered diet) Objective Vital Signs: Vital Signs - 24 hr 12/23/19 12/23/19 12/24/19 15:45 20:05 00:00 Temperature 36.8 C 36.6 C Heart Rate 74 Heart Rate [ 79 75 Brachial] Respiratory 19 18 16 Rate Blood Pressure [Left Brachial artery] Blood Pressure 142/65 H 154/62 H [Right Brachial artery] O2 Saturation 94 92 12/24/19 12/24/19 09:00 10:12 Temperature 36.5 C Heart Rate 72 Heart Rate [ 66 Brachial] Respiratory 16 16 Rate Blood Pressure 164/68 H [Left Brachial artery] Blood Pressure [Right Brachial artery] O2 Saturation 95 Oxygen O2 Source Nasal cannula I&O (Last 24 Hrs): Intake and Output Totals x24h 12/22/19 12/23/19 12/24/19 23:59 23:59 23:59 Intake Total 1500 1490 1060 Output Total 1400 850 Balance 319 601 1239 General: Alert, Oriented x3 HEENT: Other (jaw instrumented post op, chin has large purple bruise) Neuro: Non Focal Cardiovascular: Regular rate Respiratory: No respiratory distress Abdomen: Soft Extremities: No edema - Results Results: Laboratory Results WBC 5.1 x10^3/uL (4.8-10.8) 12/24/19 04:55 RBC 4.36 10^6/uL (4.20-5.40) 12/24/19 04:55 Hgb 13.2 g/dL (12.0-16.0) 12/24/19 04:55 Hct 40.4 % (37.0-47.0) 12/24/19 04:55 MCV 92.7 fL (81.0-99.0) 12/24/19 04:55 MCH 30.3 pg (27.0-31.0) 12/24/19 04:55 MCHC 32.7 g/dL (32.0-36.0) 12/24/19 04:55 RDW 13.9 % (12.0-15.0) 12/24/19 04:55 Plt Count 209 10^3/uL (130-450) 12/24/19 04:55 MPV 10.8 fL (7.9-10.8) 12/24/19 04:55 Neut # (Auto) 4.0 10^3/uL (1.5-6.6) 12/24/19 04:55 Lymph # (Auto) 0.7 10^3/uL (1.5-3.5) L 12/24/19 04:55 [place] # (Auto) 0.3 10^3/uL (0.0-1.0) 12/24/19 04:55 Eos # (Auto) 0.0 10^3/uL (0.0-0.7) 12/24/19 04:55 Baso # (Auto) 0.0 10^3/uL (0.0-0.1) 12/24/19 04:55 Absolute Nucleated RBC 0.00 x10^3/uL 12/24/19 04:55 Nucleated RBC % 0.0 /100WBC 12/24/19 04:55 Sodium 136 mmol/L (135-145) 12/24/19 04:55 Potassium 4.1 mmol/L (3.5-5.0) 12/24/19 04:55 Chloride 99 mmol/L (101-111) L 12/24/19 04:55 Carbon Dioxide 27 mmol/L (21-32) 12/24/19 04:55 Anion Gap 10.0 (6-13) 12/24/19 04:55 BUN 28 mg/dL (6-20) H 12/24/19 04:55 Creatinine 1.1 mg/dL (0.4-1.0) H 12/24/19 04:55 Estimated GFR (MDRD) 47 (>89) L 12/24/19 04:55 Glucose 345 mg/dL (70-100) H 12/24/19 04:55 POC Whole Bld Glucose 200 mg/dL (70 - 100) H 12/24/19 11:42 Glycated Hemoglobin 10.7 % (4.6-6.2) H 12/14/19 19:38 Estim Average Glucose 260 (70-100) H 12/14/19 19:38 Calcium 9.3 mg/dL (8.5-10.3) 12/24/19 04:55 Ref Lab Test Result REPORT 12/19/19 09:40
[2019-12-24] MEDS: ATORVASTATIN 40 MG TABLET PO SCH (21:05)
[2019-12-24] MEDS: SODIUM CHLORIDE FLUSH 0.9% 10 ML SYRINGE IVP PRN (21:06)
[2019-12-24] MEDS: GABAPENTIN 300 MG CAPSULE PO SCH (21:07)
[2019-12-24] MEDS: diphenhydrAMINE 25 MG CAPSULE PO PRN (22:37)
[2019-12-24] MEDS: HYDROCORTISONE 1% CREAM 28 GM TUBE TOP PRN (22:38)
[2019-12-25] MEDS: PANTOPRAZOLE 40 MG TABLET PO SCH (06:50)
[2019-12-25] MEDS: BUDESONIDE 0.5 MG/2 ML NEB INH SCH ×2 (07:37→19:48)
[2019-12-25] MEDS: FORMOTEROL FUMARATE NEB 20 MCG/2 ML INH SCH ×2 (07:37→19:48)
[2019-12-25] MEDS: INSULIN ASPART 300 UNIT/3 ML PEN SUBQ SCH ×4 (08:00→21:35)
[2019-12-25] MEDS: INSULIN GLARGINE 300 UNIT/3 ML PEN SUBQ SCH (08:01)
[2019-12-25] MEDS: LOSARTAN 50 MG TABLET PO SCH (08:02)
[2019-12-25] MEDS: TOLTERODINE LA 2 MG CAPSULE PO SCH (08:02)
[2019-12-25] MEDS: MULTIVITAMIN W/MINERALS TABLET PO SCH (08:02)
[2019-12-25] MEDS: cefTRIAXone 1 GM in SODIUM CHLORIDE 0.9% MINIBAG 100 ML IV SCH (08:02)
[2019-12-25] MEDS: ASPIRIN EC 81 MG TABLET PO SCH (08:02)
[2019-12-25] MEDS: LACTOBACILLUS RHAMNOSUS GG CAPSULE PO SCH (08:02)
[2019-12-25] MEDS: ENOXAPARIN 40 MG/0.4 ML SYRINGE SUBQ SCH (08:02)
[2019-12-25] MEDS: SODIUM CHLORIDE FLUSH 0.9% 10 ML SYRINGE IVP SCH ×2 (08:05→16:51)
[2019-12-25] MEDS: polyethylene glycoL 3350 17 GM PACKET PO SCH (08:05)
[2019-12-25] MEDS: CHLORHEXIDINE GLUCONATE 15 ML UDC PO SCH ×2 (08:17→20:13)
[2019-12-25] MEDS: BACITRACIN ZINC OINT 1 PACKET TOP SCH ×2 (08:17→20:13)
[2019-12-25] MEDS ORDERED: methylPREDNISolone SUCCINATE 40 MG/ML VIAL IVP SCH (09:00)
[2019-12-25] MEDS ORDERED: INSULIN GLARGINE 300 UNIT/3 ML PEN SUBQ ONE (10:20)
--- NOTE | 2019-12-25 16:45 | PROVIDER PROGRESS NOTE ---
Assessment/Plan - Problem List (1) Streptococcus viridans infection Assessment/Plan: Continue new antibiotics started just recently when sensitivities of the bacterial culture returned. (2) Cellulitis of submental space Assessment/Plan: Repeat surgery to remove the hardware is scheduled for tomorrow. Continue new antibiotics started just recently when sensitivities of the bacterial culture returned. (3) Pathological fracture of mandible Assessment/Plan: Repeat surgery to remove the hardware is scheduled for tomorrow. Further recommendations from Dr. Magdaleno after the surgery. (4) COPD with exacerbation Assessment/Plan: Steroid dose is tapering down. Continue with inhalers/nebs. 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 Magdaleno. The steroid use increased her glucose results however the steroids are being tapered down now quickly (6) Rheumatoid arthritis Assessment/Plan: As per Hx (7) CKD (chronic kidney disease) Assessment/Plan: Stable - Current Meds Current Meds: Current Medications Generic Name Dose Route Start Last Admin Trade Name Freq PRN Reason Stop Dose Admin Acetaminophen 650 mg 12/14/19 18:29 12/23/19 22:59 Tylenol PO 650 mg Q4HR PRN Administration Pain 1 to 4 Albuterol/Ipratropium 3 ml 12/14/19 20:05 12/24/19 09:06 Duoneb INH 3 ml Q4HR PRN Administration Wheezing Aspirin 81 mg 12/19/19 09:00 12/25/19 08:02 Ecotrin PO 81 mg DAILY LESLY Administration Atorvastatin Calcium 40 mg 12/14/19 21:00 12/24/19 21:05 Lipitor PO 40 mg QPM LESLY Administration Bacitracin 1 packet 12/19/19 21:00 12/25/19 08:17 Bacitracin TOP 1 packet BID LESLY Administration Budesonide 0.5 mg 12/15/19 07:00 12/25/19 07:37 Pulmicort INH 0.5 mg RTBID LESLY Administration Chlorhexidine Gluconate 15 ml 12/19/19 21:00 12/25/19 08:17 Peridex PO 15 ml BID LESLY Administration Diphenhydramine HCl 25 mg 12/21/19 15:49 12/24/19 22:37 Benadryl PO 25 mg Q4HR PRN Administration Allergy Symptoms Enoxaparin Sodium 40 mg 12/15/19 09:00 12/25/19 08:02 Lovenox SUBQ 40 mg DAILY LESLY Administration Formoterol Fumarate 20 mcg 12/15/19 07:00 12/25/19 07:37 Perforomist INH 20 mcg RTBID LESLY Administration Gabapentin 900 mg 12/14/19 21:00 12/24/19 21:07 Neurontin PO 900 mg QPM LESLY Administration Hydralazine HCl 10 mg 12/19/19 18:31 12/22/19 03:58 Apresoline Inj IVP 10 mg QID PRN Administration Hypertensive Emergency Hydrocortisone 1 applic 12/24/19 22:07 12/24/19 22:38 Hydrocortisone TOP 1 applic BID PRN Administration ITCHING Ceftriaxone Sodium 1 gm/ 100 mls @ 200 mls/hr 12/23/19 14:30 12/25/19 08:57 Sodium Chloride IV Infused DAILY LESLY Infusion Insulin Aspart 3 - 11 unit 12/23/19 08:00 12/25/19 11:59 Novolog SUBQ 5 unit 0800,1200,1700,2100 LESLY Administration Protocol Lactobacillus Rhamnosus 1 cap 12/15/19 09:00 12/25/19 08:02 Culturelle PO 1 cap DAILY LESLY Administration Losartan Potassium 50 mg 12/20/19 09:00 12/25/19 08:02 Cozaar PO 50 mg DAILY LESLY Administration Methylprednisolone 40 mg 12/25/19 09:00 12/25/19 08:17 Solu-Medrol (40mg Vial) IVP 12/27/19 10:00 40 mg DAILY LESLY Administration Mineral Oil 1 applic 12/17/19 19:25 12/24/19 02:08 Cavilon TOP 1 applic PRN PRN Administration Skin Care Morphine Sulfate 2 mg 12/19/19 15:58 12/19/19 20:36 Morphine (Carpuject) IVP 2 mg Q2HR PRN Administration PAIN Multivitamins/Minerals 1 tab 12/22/19 08:00 12/25/19 08:02 Theragran M PO 1 tab DAILYWM LESLY Administration Oxycodone HCl 5 mg 12/17/19 14:46 12/21/19 05:00 Roxicodone PO 5 mg Q6HR PRN Administration PAIN Pantoprazole Sodium 40 mg 12/15/19 07:00 12/25/19 06:50 Protonix PO 40 mg QDAC LESLY Administration Polyethylene Glycol 17 gm 12/16/19 09:00 12/25/19 08:05 Miralax PO Not Given DAILY LESLY Sodium Chloride 10 ml 12/15/19 01:00 12/25/19 08:05 Normal Saline Flush 0.9% IVP 10 ml 0100,0900,1700 LESLY Administration Sodium Chloride 10 ml 12/14/19 19:49 12/24/19 21:06 Normal Saline Flush 0.9% IVP 10 ml PRN PRN Administration NEEDED PER PROVIDER ORDERS Throat Lozenges 1 lozenge 12/17/19 19:25 12/24/19 06:55 Cepacol MM 1 lozenge Q2HR PRN Administration Throat pain Tolterodine Tartrate 2 mg 12/15/19 09:00 12/25/19 08:02 Detrol La PO 2 mg DAILY LESLY Administration - Lab Result Fish Bone Diagrams: 12/24/19 04:55 12/24/19 04:55 - Additional Planning My Orders: My Active Orders 12/25/19 09:00 methylPREDNISolone SUCCINATE [SOLU-Medrol (40MG VIAL)] 40 mg IVP DAILY 12/26/19 09:00 Insulin Glargine [Lantus Solostar] 20 unit SUBQ DAILY Subjective - Subjective Patient Reports: Other (She is in good spirits, tolerating the liquid diet, is looking forward to surgery tomorrow) Objective Vital Signs: Vital Signs - 24 hr 12/24/19 12/24/19 12/25/19 19:28 23:45 07:37 Temperature 36.8 C Heart Rate 71 65 Heart Rate [ 76 Brachial] Respiratory 18 17 16 Rate Blood Pressure 158/70 H [Right Brachial artery] O2 Saturation 96 12/25/19 12/25/19 12/25/19 07:39 08:00 16:00 Temperature 36.8 C 37.0 C 36.9 C Heart Rate 65 Heart Rate [ 59 L 80 Brachial] Respiratory 16 20 20 Rate Blood Pressure 156/70 H 145/63 H [Right Brachial artery] O2 Saturation 96 96 93 Oxygen O2 Source Nasal cannula I&O (Last 24 Hrs): Intake and Output Totals x24h 12/23/19 12/24/19 12/25/19 23:59 23:59 23:59 Intake Total 1490 1300 1300 Output Total 850 3275 Balance 640 1300 -1975 General: Alert, Oriented x3 HEENT: Mucous membr. moist/pink, Other (Chin is bruised, hardware is unchanged) Neck: Supple Neuro: Non Focal Cardiovascular: Regular rate, No murmurs Respiratory: No respiratory distress Abdomen: Soft Extremities: No edema - Results Results: Laboratory Results WBC 5.1 x10^3/uL (4.8-10.8) 12/24/19 04:55 RBC 4.36 10^6/uL (4.20-5.40) 12/24/19 04:55 Hgb 13.2 g/dL (12.0-16.0) 12/24/19 04:55 Hct 40.4 % (37.0-47.0) 12/24/19 04:55 MCV 92.7 fL (81.0-99.0) 12/24/19 04:55 MCH 30.3 pg (27.0-31.0) 12/24/19 04:55 MCHC 32.7 g/dL (32.0-36.0) 12/24/19 04:55 RDW 13.9 % (12.0-15.0) 12/24/19 04:55 Plt Count 209 10^3/uL (130-450) 12/24/19 04:55 MPV 10.8 fL (7.9-10.8) 12/24/19 04:55 Neut # (Auto) 4.0 10^3/uL (1.5-6.6) 12/24/19 04:55 Lymph # (Auto) 0.7 10^3/uL (1.5-3.5) L 12/24/19 04:55 [place] # (Auto) 0.3 10^3/uL (0.0-1.0) 12/24/19 04:55 Eos # (Auto) 0.0 10^3/uL (0.0-0.7) 12/24/19 04:55 Baso # (Auto) 0.0 10^3/uL (0.0-0.1) 12/24/19 04:55 Absolute Nucleated RBC 0.00 x10^3/uL 12/24/19 04:55 Nucleated RBC % 0.0 /100WBC 12/24/19 04:55 Sodium 136 mmol/L (135-145) 12/24/19 04:55 Potassium 4.1 mmol/L (3.5-5.0) 12/24/19 04:55 Chloride 99 mmol/L (101-111) L 12/24/19 04:55 Carbon Dioxide 27 mmol/L (21-32) 12/24/19 04:55 Anion Gap 10.0 (6-13) 12/24/19 04:55 BUN 28 mg/dL (6-20) H 12/24/19 04:55 Creatinine 1.1 mg/dL (0.4-1.0) H 12/24/19 04:55 Estimated GFR (MDRD) 47 (>89) L 12/24/19 04:55 Glucose 345 mg/dL (70-100) H 12/24/19 04:55 POC Whole Bld Glucose 184 mg/dL (70 - 100) H 12/25/19 11:43 Glycated Hemoglobin 10.7 % (4.6-6.2) H 12/14/19 19:38 Estim Average Glucose 260 (70-100) H 12/14/19 19:38 Calcium 9.3 mg/dL (8.5-10.3) 12/24/19 04:55 Stl C. diff Tox B Gene NEGATIVE (NEGATIVE) 12/24/19 20:30 Ref Lab Test Result REPORT 12/19/19 09:40
[2019-12-25] MEDS: IPRATROPIUM/ALBUTEROL 3 ML NEB INH PRN (19:48)
[2019-12-25] MEDS: GABAPENTIN 300 MG CAPSULE PO SCH (20:13)
[2019-12-25] MEDS: ATORVASTATIN 40 MG TABLET PO SCH (20:13)
[2019-12-25] MEDS: diphenhydrAMINE 25 MG CAPSULE PO PRN (21:40)
[2019-12-26] MEDS: SODIUM CHLORIDE FLUSH 0.9% 10 ML SYRINGE IVP SCH ×3 (00:59→15:42)
[2019-12-26] MEDS: PANTOPRAZOLE 40 MG TABLET PO SCH (05:23)
[2019-12-26] MEDS ORDERED: INSULIN REGULAR HUMAN 300 UNIT/3 ML VIAL SUBQ SCH (06:00)
[2019-12-26 07:05] LABS: BASOPHILS % (AUTO) 0.4 %; EOSINOPHILS # (AUTO) 0.2 10^3/uL (0.0-0.7); EOSINOPHILS % (AUTO) 2.2 %; HGB - HEMOGLOBIN 13.9 g/dL (12.0-16.0); MEAN CORPUSCULAR HEMOGLOBIN 30.4 pg (27.0-31.0); MEAN CORPUSCULAR HGB CONC 32.7 g/dL (32.0-36.0); MEAN PLATELET VOLUME 10.5 fL (7.9-10.8); MONOCYTES # (AUTO) 0.7 10^3/uL (0.0-1.0); MONOCYTES % (AUTO) 10.3 %; NEUTROPHILS # (AUTO) 3.9 10^3/uL (1.5-6.6); NEUTROPHILS % (AUTO) 57.7 %; PLT - PLATELET COUNT 209 10^3/uL (130-450); RED BLOOD COUNT 4.57 10^6/uL (4.20-5.40); RED CELL DISTRIBUTION WIDTH 13.8 % (12.0-15.0); WHITE BLOOD COUNT 6.8 x10^3/uL (4.8-10.8)
[2019-12-26 07:11] LABS: MAGNESIUM 1.9 mg/dL (1.7-2.8); PHOSPHORUS 3.6 mg/dL (2.5-4.6)
[2019-12-26] MEDS ORDERED: LIDOCAINE 2%-EPI 1:100000 20 ML MDV ONE (07:23)
[2019-12-26] MEDS ORDERED: BACITRACIN ZINC OINT 1 PACKET TOP ONE (07:23)
[2019-12-26] MEDS ORDERED: BUPIVACAINE 0.25% PF 30 ML VIAL ONE (07:24)
[2019-12-26] MEDS ORDERED: CHLORHEXIDINE GLUCONATE 15 ML UDC PO ONE (07:25)
[2019-12-26] MEDS: IPRATROPIUM/ALBUTEROL 3 ML NEB INH PRN (07:30)
[2019-12-26] MEDS: BUDESONIDE 0.5 MG/2 ML NEB INH SCH ×2 (07:30→19:43)
[2019-12-26] MEDS: FORMOTEROL FUMARATE NEB 20 MCG/2 ML INH SCH ×2 (07:30→19:43)
[2019-12-26] MEDS ORDERED: EPINEPHrine 1 MG/ML AMP ONE (07:34)
[2019-12-26] MEDS ORDERED: OXYMETAZOLINE HCL 100 SPRAYS BOTTLE NAS ONE (07:43)
--- NOTE | 2019-12-26 07:58 | ANESTHESIA ---
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 - Procedure Mandible reconstruction Vital Signs: Temp Pulse Resp BP Pulse Ox 36.9 C 82 18 141/59 H 95 12/25/19 23:38 12/25/19 23:38 12/25/19 23:38 12/25/19 23:38 12/25/19 23:38 Height 5 ft 5 in Weight (kg) 74 kg Body Mass Index 26.0 - NPO >8 hours - Is Patient ?: Yes - Lab Results Current Lab Results: Laboratory Tests 12/26/19 06:45: WBC 6.8, RBC 4.57, Hgb 13.9, Hct 42.5, MCV 93.0, MCH 30.4, MCHC 32.7, RDW 13.8, Plt Count 209, MPV 10.5, Neut # (Auto) 3.9, Lymph # (Auto) 2.0, [place] # (Auto) 0.7, Eos # (Auto) 0.2, Baso # (Auto) 0.0, Absolute Nucleated RBC 0.00, Nucleated RBC % 0.0 12/26/19 06:45: Sodium 139, Potassium 3.9, Chloride 99 L, Carbon Dioxide 31, Anion Gap 9.0, BUN 28 H, Creatinine 1.0, Estimated GFR (MDRD) 53 L, Glucose 208 H, Calcium 9.0, Phosphorus 3.6, Magnesium 1.9 12/26/19 05:53: POC Whole Bld Glucose 197 H 12/25/19 23:47: POC Whole Bld Glucose 261 H 12/25/19 21:26: POC Whole Bld Glucose 243 H 12/25/19 16:43: POC Whole Bld Glucose 327 H 12/25/19 11:43: POC Whole Bld Glucose 184 H 12/25/19 07:26: POC Whole Bld Glucose 292 H 12/24/19 20:39: POC Whole Bld Glucose 292 H 12/24/19 16:33: POC Whole Bld Glucose 236 H 12/24/19 11:42: POC Whole Bld Glucose 200 H 12/24/19 10:04: POC Whole Bld Glucose 217 H 12/24/19 04:55: Sodium 136, Potassium 4.1, Chloride 99 L, Carbon Dioxide 27, Anion Gap 10.0, BUN 28 H, Creatinine 1.1 H, Estimated GFR (MDRD) 47 L, Glucose 345 H, Calcium 9.3 12/24/19 04:55: WBC 5.1, RBC 4.36, Hgb 13.2, Hct 40.4, MCV 92.7, MCH 30.3, MCHC 32.7, RDW 13.9, Plt Count 209, MPV 10.8, Neut # (Auto) 4.0, Lymph # (Auto) 0.7 L , [place] # (Auto) 0.3, Eos # (Auto) 0.0, Baso # (Auto) 0.0, Absolute Nucleated RBC 0.00, Nucleated RBC % 0.0 12/23/19 21:01: POC Whole Bld Glucose 212 H 12/23/19 16:49: POC Whole Bld Glucose 305 H 12/23/19 11:15: POC Whole Bld Glucose 224 H 12/23/19 07:36: POC Whole Bld Glucose 223 H 12/22/19 20:43: POC Whole Bld Glucose 355 H 12/22/19 16:26: POC Whole Bld Glucose 236 H 12/22/19 11:46: POC Whole Bld Glucose 293 H 12/22/19 08:14: POC Whole Bld Glucose 198 H 12/22/19 07:52: POC Whole Bld Glucose 187 H 12/22/19 04:45: Sodium 140, Potassium 3.9, Chloride 104, Carbon Dioxide 24, Anion Gap 12.0, BUN 13, Creatinine 1.0, Estimated GFR (MDRD) 53 L, Glucose 216 H , Calcium 9.1 12/22/19 04:45: WBC 3.7 L, RBC 4.11 L, Hgb 12.7, Hct 38.2, MCV 92.9, MCH 30.9, MCHC 33.2, RDW 13.5, Plt Count 175, MPV 11.0 H, Neut # (Auto) 3.0, Lymph # (Auto) 0.6 L, [place] # (Auto) 0.1, Eos # (Auto) 0.0, Baso # (Auto) 0.0, Absolute Nucleated RBC 0.00, Nucleated RBC % 0.0 12/21/19 21:33: POC Whole Bld Glucose 237 H 12/21/19 16:55: POC Whole Bld Glucose 253 H 12/21/19 11:08: POC Whole Bld Glucose 168 H 12/21/19 07:29: POC Whole Bld Glucose 136 H 12/21/19 04:20: Sodium 140, Potassium 3.7, Chloride 106, Carbon Dioxide 27, Anion Gap 7.0, BUN 8, Creatinine 1.1 H, Estimated GFR (MDRD) 47 L, Glucose 120 H , Calcium 8.6 12/21/19 04:20: WBC 4.3 L, RBC 4.10 L, Hgb 12.1, Hct 38.3, MCV 93.4, MCH 29.5, MCHC 31.6 L, RDW 14.0, Plt Count 154, MPV 10.9 H, Neut # (Auto) 2.3, Lymph # (Auto) 1.4 L, [place] # (Auto) 0.5, Eos # (Auto) 0.2, Baso # (Auto) 0.0, Absolute Nucleated RBC 0.00, Nucleated RBC % 0.0 12/20/19 20:39: POC Whole Bld Glucose 153 H 12/20/19 16:41: POC Whole Bld Glucose 103 H 12/20/19 11:53: POC Whole Bld Glucose 115 H 12/20/19 07:46: POC Whole Bld Glucose 138 H 12/20/19 05:46: POC Whole Bld Glucose 108 H 12/20/19 05:30: Sodium 137, Potassium 3.9, Chloride 107, Carbon Dioxide 23, Anion Gap 7.0, BUN 10, Creatinine 1.1 H, Estimated GFR (MDRD) 47 L, Glucose 105 H, Calcium 8.2 L 12/20/19 05:30: WBC 5.7, RBC 4.02 L, Hgb 12.4, Hct 37.8, MCV 94.0, MCH 30.8, MCHC 32.8, RDW 14.0, Plt Count 154, MPV 10.4, Neut # (Auto) 3.7, Lymph # (Auto) 1.3 L, [place] # (Auto) 0.6, Eos # (Auto) 0.1, Baso # (Auto) 0.0, Absolute Nucleated RBC 0.00, Nucleated RBC % 0.0 12/20/19 00:24: POC Whole Bld Glucose 95 12/19/19 18:12: POC Whole Bld Glucose 107 H 12/19/19 11:51: POC Whole Bld Glucose 137 H 12/19/19 04:45: Sodium 138, Potassium 3.9, Chloride 110, Carbon Dioxide 22, Anion Gap 6.0, BUN 12, Creatinine 1.1 H, Estimated GFR (MDRD) 47 L, Glucose 143 H, Calcium 8.2 L 12/19/19 04:45: WBC 4.4 L, RBC 4.07 L, Hgb 12.0, Hct 36.8 L, MCV 90.4, MCH 29.5, MCHC 32.6, RDW 13.2, Plt Count 155, MPV 10.9 H, Neut # (Auto) 2.2, Lymph # (Auto) 1.6, [place] # (Auto) 0.4, Eos # (Auto) 0.1, Baso # (Auto) 0.0, Absolute Nucleated RBC 0.00, Nucleated RBC % 0.0 12/18/19 20:40: POC Whole Bld Glucose 169 H 12/18/19 16:40: POC Whole Bld Glucose 128 H 12/18/19 11:33: POC Whole Bld Glucose 177 H 12/18/19 07:58: POC Whole Bld Glucose 151 H 12/18/19 06:52: POC Whole Bld Glucose 74 12/18/19 05:16: Sodium 140, Potassium 3.7, Chloride 110, Carbon Dioxide 24, Anion Gap 6.0, BUN 12, Creatinine 1.0, Estimated GFR (MDRD) 53 L, Glucose 69 L, Calcium 8.1 L 12/18/19 05:16: WBC 3.5 L, RBC 4.16 L, Hgb 12.8, Hct 38.6, MCV 92.8, MCH 30.8, MCHC 33.2, RDW 13.1, Plt Count 161, MPV 11.2 H, Neut # (Auto) 1.6, Lymph # (Auto) 1.4 L, [place] # (Auto) 0.3, Eos # (Auto) 0.1, Baso # (Auto) 0.0, Absolute Nucleated RBC 0.00, Nucleated RBC % 0.0 12/17/19 20:32: POC Whole Bld Glucose 105 H 12/17/19 16:33: POC Whole Bld Glucose 106 H 12/17/19 11:52: POC Whole Bld Glucose 194 H 12/17/19 10:00: POC Whole Bld Glucose 205 H 12/17/19 07:55: POC Whole Bld Glucose 72 12/17/19 05:13: Sodium 141, Potassium 3.9, Chloride 108, Carbon Dioxide 25, Anion Gap 8.0, BUN 16, Creatinine 1.2 H, Estimated GFR (MDRD) 43 L, Glucose 71, Calcium 8.3 L 12/17/19 05:13: WBC 3.3 L, RBC 4.17 L, Hgb 12.4, Hct 38.7, MCV 92.8, MCH 29.7, MCHC 32.0, RDW 13.1, Plt Count 153, MPV 11.1 H 12/16/19 21:07: POC Whole Bld Glucose 145 H 12/16/19 16:41: POC Whole Bld Glucose 213 H 12/16/19 11:04: POC Whole Bld Glucose 88 12/16/19 07:22: POC Whole Bld Glucose 125 H 12/16/19 05:44: Sodium 139, Potassium 3.7, Chloride 107, Carbon Dioxide 26, Anion Gap 6.0, BUN 17, Creatinine 1.2 H, Estimated GFR (MDRD) 43 L, Glucose 120 H, Calcium 8.2 L 12/16/19 05:44: WBC 4.3 L, RBC 4.49, Hgb 13.9, Hct 42.2, MCV 94.0, MCH 31.0, MCHC 32.9, RDW 12.9, Plt Count 165, MPV 10.8 12/15/19 21:10: POC Whole Bld Glucose 199 H 12/15/19 16:45: POC Whole Bld Glucose 76 12/15/19 11:35: POC Whole Bld Glucose 143 H 12/15/19 05:45: Sodium 138, Potassium 3.9, Chloride 103, Carbon Dioxide 26, Anion Gap 9.0, BUN 24 H, Creatinine 1.3 H, Estimated GFR (MDRD) 39 L, Glucose 156 H, Calcium 9.0 12/15/19 05:45: WBC 5.3, RBC 4.82, Hgb 14.8, Hct 44.8, MCV 92.9, MCH 30.7, MCHC 33.0, RDW 12.8, Plt Count 191, MPV 11.0 H 12/15/19 05:43: POC Whole Bld Glucose 155 H 12/14/19 20:36: POC Whole Bld Glucose 309 H 12/14/19 20:09: Sodium 135, Potassium 3.8, Chloride 98 L, Carbon Dioxide 28, Anion Gap 9.0, BUN 28 H, Creatinine 1.6 H, Estimated GFR (MDRD) 31 L, Glucose 267 H, Calcium 9.1 12/14/19 19:38: WBC 6.9, RBC 4.95, Hgb 15.2, Hct 45.5, MCV 91.9, MCH 30.7, MCHC 33.4, RDW 12.6, Plt Count 191, MPV 11.0 H, Neut # (Auto) 4.2, Lymph # (Auto) 1.8, [place]ruff # (Auto) 0.8, Eos # (Auto) 0.1, Baso # (Auto) 0.1, Absolute Nucleated RBC 0.00, Nucleated RBC % 0.0 12/14/19 19:38: Glycated Hemoglobin 10.7 H, Estim Average Glucose 260 H Lab results reviewed: Yes Fish Bones: 12/26/19 06:45 12/26/19 06:45 Home Medications and Allergies Home Medications: Ambulatory Orders Albuterol Sulfate [Proair Hfa Inhaler] 1 puffs INH Q4H PRN 12/14/19 Aspirin [Aspirin EC] 81 mg PO DAILY 12/14/19 Atorvastatin [Lipitor] 40 mg PO DAILY 12/14/19 Clindamycin HCl [Clindamycin 300MG CAP] 300 mg PO TID 12/14/19 Fluticasone/Salmeterol [Advair 250-50 Diskus] 1 puffs INH BID 12/14/19 Gabapentin 900 mg PO DAILY PM 12/14/19 Insulin Aspart [NovoLOG] 10 units INJ TIDWM 12/14/19 Insulin Glargine [Lantus Solostar] 28 units INJ DAILY 12/14/19 Omeprazole 20 mg PO DAILY 12/14/19 Telmisartan [Micardis] 10 mg PO DAILY 12/14/19 Tiotropium [place] [Spiriva Respimat] 4 gm IH DAILY 12/14/19 Tolterodine Tartrate [Detrol LA] 2 mg PO DAILY 12/14/19 Active Medications Acetaminophen (Tylenol) 650 mg PO Q4HR PRN PRN Reason: Pain 1 to 4 Last Admin: 12/23/19 22:59 Dose: 650 mg Albuterol () 2.5 mg INH RTQ4H PRN PRN Reason: Wheezing Albuterol/Ipratropium (Duoneb) 3 ml INH Q4HR PRN PRN Reason: Wheezing Last Admin: 12/26/19 07:30 Dose: 3 ml Aspirin (Ecotrin) 81 mg PO DAILY [facility] Last Admin: 12/25/19 08:02 Dose: 81 mg Atorvastatin Calcium (Lipitor) 40 mg PO QPM [facility] Last Admin: 12/25/19 20:13 Dose: 40 mg Bacitracin (Bacitracin) 1 packet TOP BID [facility] Last Admin: 12/25/19 20:13 Dose: 1 packet Budesonide (Pulmicort) 0.5 mg INH RTBID [facility] Last Admin: 12/26/19 07:30 Dose: 0.5 mg Carboxymethylcellulose (Refresh 1% Ophth Drops) 1 drops EACHEYE PRN PRN PRN Reason: Dry Eye Chlorhexidine Gluconate (Peridex) 15 ml PO BID [facility] Last Admin: 12/25/19 20:13 Dose: 15 ml Diphenhydramine HCl (Benadryl) 25 mg PO Q4HR PRN PRN Reason: Allergy Symptoms Last Admin: 12/25/19 21:40 Dose: 25 mg Enoxaparin Sodium (Lovenox) 40 mg SUBQ DAILY [facility] Last Admin: 12/25/19 08:02 Dose: 40 mg Formoterol Fumarate (Perforomist) 20 mcg INH RTBID [facility] Last Admin: 12/26/19 07:30 Dose: 20 mcg Gabapentin (Neurontin) 900 mg PO QPM [facility] Last Admin: 12/25/19 20:13 Dose: 900 mg Hydralazine HCl (Apresoline Inj) 10 mg IVP QID PRN PRN Reason: Hypertensive Emergency Last Admin: 12/22/19 03:58 Dose: 10 mg Hydrocortisone (Hydrocortisone) 1 applic TOP BID PRN PRN Reason: ITCHING Last Admin: 12/24/19 22:38 Dose: 1 applic Ceftriaxone Sodium 1 gm/ (Sodium Chloride) 100 mls @ 200 mls/hr IV DAILY [facility] Last Infusion: 12/25/19 08:57 Dose: Infused Insulin Aspart (Novolog) 3 - 11 unit SUBQ 0800,1200,1700,2100 [facility]; Protocol Last Admin: 12/25/19 21:35 Dose: 7 unit Insulin Glargine (Lantus Solostar) 20 unit SUBQ DAILY [facility] Lactobacillus Rhamnosus (Culturelle) 1 cap PO DAILY [facility] Last Admin: 12/25/19 08:02 Dose: 1 cap Losartan Potassium (Cozaar) 50 mg PO DAILY [facility] Last Admin: 12/25/19 08:02 Dose: 50 mg Methylprednisolone (Solu-Medrol (40mg Vial)) 30 mg IVP DAILY [facility] Stop: 12/27/19 10:00 Mineral Oil (Cavilon) 1 applic TOP PRN PRN PRN Reason: Skin Care Last Admin: 12/24/19 02:08 Dose: 1 applic Morphine Sulfate (Morphine (Carpuject)) 2 mg IVP Q2HR PRN PRN Reason: PAIN Last Admin: 12/19/19 20:36 Dose: 2 mg Multi-Ingredient Ointment (Zinc Oxide) 1 applic TOP PRN PRN PRN Reason: Skin Care Multivitamins/Minerals (Theragran M) 1 tab PO DAILYWM [facility] Last Admin: 12/25/19 08:02 Dose: 1 tab Oxycodone HCl (Roxicodone) 5 mg PO Q6HR PRN PRN Reason: PAIN Last Admin: 12/21/19 05:00 Dose: 5 mg Pantoprazole Sodium (Protonix) 40 mg PO QDAC [facility] Last Admin: 12/26/19 05:23 Dose: Not Given Polyethylene Glycol (Miralax) 17 gm PO DAILY [facility] Last Admin: 12/25/19 08:05 Dose: Not Given Sodium Chloride (Normal Saline Flush 0.9%) 10 ml IVP 0100,0900,1700 [facility] Last Admin: 12/26/19 00:59 Dose: 10 ml Sodium Chloride (Normal Saline Flush 0.9%) 10 ml IVP PRN PRN PRN Reason: NEEDED PER PROVIDER ORDERS Last Admin: 12/24/19 21:06 Dose: 10 ml Throat Lozenges (Cepacol) 1 lozenge MM Q2HR PRN PRN Reason: Throat pain Last Admin: 12/24/19 06:55 Dose: 1 lozenge Tolterodine Tartrate (Detrol La) 2 mg PO DAILY [facility] Last Admin: 12/25/19 08:02 Dose: 2 mg Wheat Dextrin (Benefiber) 1 packet PO DAILY PRN PRN Reason: Constipation Albuterol Sulfate [Proair Hfa Inhaler] 1 puffs INH Q4H PRN 12/14/19 Aspirin [Aspirin EC] 81 mg PO DAILY 12/14/19 Atorvastatin [Lipitor] 40 mg PO DAILY 12/14/19 Clindamycin HCl [Clindamycin 300MG CAP] 300 mg PO TID 12/14/19 Fluticasone/Salmeterol [Advair 250-50 Diskus] 1 puffs INH BID 12/14/19 Gabapentin 900 mg PO DAILY PM 12/14/19 Insulin Aspart [NovoLOG] 10 units INJ TIDWM 12/14/19 Insulin Glargine [Lantus Solostar] 28 units INJ DAILY 12/14/19 Omeprazole 20 mg PO DAILY 12/14/19 Telmisartan [Micardis] 10 mg PO DAILY 12/14/19 Tiotropium [place] [Spiriva Respimat] 4 gm IH DAILY 12/14/19 Tolterodine Tartrate [Detrol LA] 2 mg PO DAILY 12/14/19 Allergies/Adverse Reactions: Allergies Allergy/AdvReac Type Severity Reaction Status Date / Time lisinopril Allergy Unknown Verified 12/14/19 20:06 mushroom Allergy Rash Verified 12/15/19 17:51 Penicillins Allergy Unknown Verified 12/14/19 20:06 shellfish derived Allergy Hives Verified 12/14/19 20:06 Anes History & Medical History - Anesthetic History Family history of Anesthesia Complications: Denies Family history of Malignant Hyperthermia: Denies - Medical History Cardiovascular: reports: High cholesterol, Murmur Pulmonary: reports: COPD (Quit smoking ) Gastrointestinal: reports: GERD Urinary: reports: Incontinence, Renal insuffiency Neuro: reports: Peripheral neuropathy Musculoskeletal: reports: Rheumatoid arthritis Endocrine/Autoimmune: reports: Type 2 diabetes Blood Disorders: reports: None Skin: reports: None Smoking Status: Former smoker Other Past Medical History: Dizzy spells - Surgical History Eyes Ears Nose Throat (EENT): Cataracts Gynecologic: Hysterectomy, Oophrectomy Orthopedic: Knee replacement Exam General: Alert, Oriented x3, Cooperative Dental: Other (edentulous. implants in lower front center.) Mouth Openin Fingerbreadth Neck Mobility: Reduced Mallampati classification: III Respiratory: Lungs clear, Normal breath sounds, No respiratory distress Cardiovascular: Regular rate Neurological: Normal speech Mental/Cognitive Status: Alert/Oriented X3, Normal for patient Cognitive Status: Within normal limits Plan Anesthesia Type: General Consent for Procedure(s) Verified and Reviewed: Yes Code Status: Attempt Resuscitation ASA classification: 3-Severe systemic disease Is this case an emergency?: No
[2019-12-26] MEDS ORDERED: SODIUM CHLORIDE 0.9% 1,000 ML IV SCH (08:00)
[2019-12-26] MEDS ORDERED: MINERAL OIL/PETROLAT OPHTH OINT ONE (08:37)
[2019-12-26] MEDS ORDERED: methylPREDNISolone SUCCINATE 40 MG/ML VIAL IVP SCH (09:00)
[2019-12-26] MEDS ORDERED: LACTATED RINGERS 1,000 ML IV ONE ×2 (09:22→13:33)
[2019-12-26] MEDS ORDERED: LIDOCAINE 2%-EPI 1:100000 20 ML MDV SUBQ ONE ×2 (09:24)
[2019-12-26] MEDS ORDERED: BUPIVACAINE 0.25%-EPI 1:200000 PF 30 ML VIAL SUBQ ONE ×2 (09:25)
[2019-12-26] MEDS: INSULIN ASPART 300 UNIT/3 ML PEN SUBQ SCH ×4 (10:53→21:59)
[2019-12-26] MEDS: MULTIVITAMIN W/MINERALS TABLET PO SCH (10:53)
[2019-12-26] MEDS: BACITRACIN ZINC OINT 1 PACKET TOP SCH ×2 (10:54→21:57)
[2019-12-26] MEDS: ASPIRIN EC 81 MG TABLET PO SCH (10:54)
[2019-12-26] MEDS: ENOXAPARIN 40 MG/0.4 ML SYRINGE SUBQ SCH (10:54)
[2019-12-26] MEDS: CHLORHEXIDINE GLUCONATE 15 ML UDC PO SCH ×2 (10:54→21:57)
[2019-12-26] MEDS: INSULIN GLARGINE 300 UNIT/3 ML PEN SUBQ SCH (10:54)
[2019-12-26] MEDS: cefTRIAXone 1 GM in SODIUM CHLORIDE 0.9% MINIBAG 100 ML IV SCH (10:54)
[2019-12-26] MEDS: LACTOBACILLUS RHAMNOSUS GG CAPSULE PO SCH (10:55)
[2019-12-26] MEDS: polyethylene glycoL 3350 17 GM PACKET PO SCH (10:55)
[2019-12-26] MEDS: fentaNYL 100 MCG/2 ML VIAL ONE ×2 (13:44→13:52)
--- NOTE | 2019-12-26 13:44 | PROVIDER PROGRESS NOTE ---
Subjective - Prog Note Date Prog Note Date: 12/26/19 - Subjective Pt reports feeling: Improved, No change Subjective: pt is just s/p of jaw surgery. pt is alert and slight confused likely from surgical anesthesia. pt is order incentive spirometry, IVF of NS. pt has slight elevated temperature in the operation, now her temperature is down. order CXR Current Medications - Current Medications Current Medications: Active Medications Acetaminophen (Tylenol) 650 mg PO Q4HR PRN PRN Reason: Pain 1 to 4 Last Admin: 12/23/19 22:59 Dose: 650 mg Albuterol () 2.5 mg INH RTQ4H PRN PRN Reason: Wheezing Albuterol/Ipratropium (Duoneb) 3 ml INH Q4HR PRN PRN Reason: Wheezing Last Admin: 12/26/19 07:30 Dose: 3 ml Aspirin (Ecotrin) 81 mg PO DAILY [facility] Last Admin: 12/26/19 10:54 Dose: Not Given Atorvastatin Calcium (Lipitor) 40 mg PO QPM [facility] Last Admin: 12/25/19 20:13 Dose: 40 mg Bacitracin (Bacitracin) 1 packet TOP BID [facility] Last Admin: 12/26/19 10:54 Dose: Not Given Budesonide (Pulmicort) 0.5 mg INH RTBID [facility] Last Admin: 12/26/19 07:30 Dose: 0.5 mg Carboxymethylcellulose (Refresh 1% Ophth Drops) 1 drops EACHEYE PRN PRN PRN Reason: Dry Eye Chlorhexidine Gluconate (Peridex) 15 ml PO BID [facility] Last Admin: 12/26/19 10:54 Dose: Not Given Diphenhydramine HCl (Benadryl) 25 mg PO Q4HR PRN PRN Reason: Allergy Symptoms Last Admin: 12/25/19 21:40 Dose: 25 mg Enoxaparin Sodium (Lovenox) 40 mg SUBQ DAILY [facility] Last Admin: 12/26/19 10:54 Dose: Not Given Formoterol Fumarate (Perforomist) 20 mcg INH RTBID [facility] Last Admin: 12/26/19 07:30 Dose: 20 mcg Gabapentin (Neurontin) 900 mg PO QPM [facility] Last Admin: 12/25/19 20:13 Dose: 900 mg Hydralazine HCl (Apresoline Inj) 10 mg IVP QID PRN PRN Reason: Hypertensive Emergency Last Admin: 12/22/19 03:58 Dose: 10 mg Hydrocortisone (Hydrocortisone) 1 applic TOP BID PRN PRN Reason: ITCHING Last Admin: 12/24/19 22:38 Dose: 1 applic Ceftriaxone Sodium 1 gm/ (Sodium Chloride) 100 mls @ 200 mls/hr IV DAILY [facility] Last Admin: 12/26/19 10:54 Dose: Not Given Sodium Chloride (Normal Saline 0.9%) 1,000 mls @ 100 mls/hr IV .Q10H [facility] Stop: 12/27/19 11:19 Insulin Aspart (Novolog) 3 - 11 unit SUBQ 0800,1200,1700,2100 [facility]; Protocol Last Admin: 12/26/19 13:52 Dose: Not Given Insulin Glargine (Lantus Solostar) 20 unit SUBQ DAILY [facility] Last Admin: 12/26/19 10:54 Dose: Not Given Lactobacillus Rhamnosus (Culturelle) 1 cap PO DAILY [facility] Last Admin: 12/26/19 10:55 Dose: Not Given Losartan Potassium (Cozaar) 50 mg PO DAILY [facility] Last Admin: 12/26/19 13:55 Dose: Not Given Methylprednisolone (Solu-Medrol (40mg Vial)) 20 mg IVP TID [facility] Mineral Oil (Cavilon) 1 applic TOP PRN PRN PRN Reason: Skin Care Last Admin: 12/24/19 02:08 Dose: 1 applic Morphine Sulfate (Morphine (Carpuject)) 2 mg IVP Q2HR PRN PRN Reason: PAIN Last Admin: 12/26/19 14:45 Dose: 2 mg Multi-Ingredient Ointment (Zinc Oxide) 1 applic TOP PRN PRN PRN Reason: Skin Care Multivitamins/Minerals (Theragran M) 1 tab PO DAILYWM [facility] Last Admin: 12/26/19 10:53 Dose: Not Given Nystatin (Mycostatin) 5 ml PO QID [facility] Stop: 01/01/20 23:59 Oxycodone HCl (Roxicodone) 5 mg PO Q6HR PRN PRN Reason: PAIN Last Admin: 12/21/19 05:00 Dose: 5 mg Pantoprazole Sodium (Protonix) 40 mg PO QDAC [facility] Last Admin: 12/26/19 05:23 Dose: Not Given Polyethylene Glycol (Miralax) 17 gm PO DAILY [facility] Last Admin: 12/26/19 10:55 Dose: Not Given Sodium Chloride (Normal Saline Flush 0.9%) 10 ml IVP 0100,0900,1700 [facility] Last Admin: 12/26/19 10:55 Dose: Not Given Sodium Chloride (Normal Saline Flush 0.9%) 10 ml IVP PRN PRN PRN Reason: NEEDED PER PROVIDER ORDERS Last Admin: 12/24/19 21:06 Dose: 10 ml Throat Lozenges (Cepacol) 1 lozenge MM Q2HR PRN PRN Reason: Throat pain Last Admin: 12/24/19 06:55 Dose: 1 lozenge Tolterodine Tartrate (Detrol La) 2 mg PO DAILY [facility] Last Admin: 12/26/19 13:55 Dose: Not Given Wheat Dextrin (Benefiber) 1 packet PO DAILY PRN PRN Reason: Constipation Albuterol Sulfate [Proair Hfa Inhaler] 1 puffs INH Q4H PRN 12/14/19 Aspirin [Aspirin EC] 81 mg PO DAILY 12/14/19 Atorvastatin [Lipitor] 40 mg PO DAILY 12/14/19 Clindamycin HCl [Clindamycin 300MG CAP] 300 mg PO TID 12/14/19 Fluticasone/Salmeterol [Advair 250-50 Diskus] 1 puffs INH BID 12/14/19 Gabapentin 900 mg PO DAILY PM 12/14/19 Insulin Aspart [NovoLOG] 10 units INJ TIDWM 12/14/19 Insulin Glargine [Lantus Solostar] 28 units INJ DAILY 12/14/19 Omeprazole 20 mg PO DAILY 12/14/19 Telmisartan [Micardis] 10 mg PO DAILY 12/14/19 Tiotropium [place] [Spiriva Respimat] 4 gm IH DAILY 12/14/19 Tolterodine Tartrate [Detrol LA] 2 mg PO DAILY 12/14/19 Objective - Vital Signs/Intake & Output Vital Signs: Vital Signs x48h Temp Pulse Pulse Resp BP BP Pulse Ox 12/26/19 13:35 37.7 C H 105 H 14 134/60 H 92 12/26/19 13:30 37.8 C H 103 H 16 136/60 H 97 12/26/19 13:28 37.8 C H 103 H 19 136/62 H 97 12/26/19 08:00 36.9 C 86 18 139/70 H 97 12/26/19 07:30 68 16 Intake & Output: Intake & Output 12/23/19 12/24/19 12/25/19 12/26/19 23:59 23:59 23:59 23:59 Intake Total 1490 1300 2630 100 Output Total 850 4275 Balance 640 1300 -1645 100 - Objective General Appearance: positive: No acute distress, Alert. negative: Lethargic Eyes Bilateral: positive: Normal inspection, PERRL, No lid inflammation ENT: positive: Dry mucous membranes. negative: Purulent nasal drainage, Oral lesions Neck: positive: Thyroid nml, Trachea midline. negative: Thyromegaly, Stiff neck, Tracheal deviation Respiratory: positive: Chest non-tender, No respiratory distress. negative: Wheezes, Rales Cardiovascular: positive: Regular rate & rhythm, No murmur, No gallop. negative: Irregularly irregular, Tachycardia, Bradycardia, JVD present, Systolic murmur, Diastolic murmur Peripheral Pulses: 2+ Radial (R), 2+ Radial (L) Abdomen: positive: Non-tender, No organomegaly, Nml bowel sounds, No distention. negative: Tenderness, Guarding, Rebound Back: positive: Nml inspection Skin: positive: Color nml, No rash, Warm, Dry. negative: Cyanosis, Diaphoresis, Pallor Extremities: positive: Non-tender, Nml appearance. negative: Calf tenderness Neurologic/Psychiatric: positive: Sensation nml. negative: Weakness, Sensory loss, Facial droop, Slurred/abnml speech - Lab Results Fish Bones: 12/26/19 06:45 12/26/19 06:45 Other Labs: Lab Results x24hrs 12/26/19 12/26/19 12/26/19 Range/Units 11:12 06:45 06:45 WBC 6.8 (4.8-10.8) x10^3/uL RBC 4.57 (4.20-5.40) 10^6/uL Hgb 13.9 (12.0-16.0) g/dL Hct 42.5 (37.0-47.0) % MCV 93.0 (81.0-99.0) fL MCH 30.4 (27.0-31.0) pg MCHC 32.7 (32.0-36.0) g/dL RDW 13.8 (12.0-15.0) % Plt Count 209 (130-450) 10^3/uL MPV 10.5 (7.9-10.8) fL Neut # (Auto) 3.9 (1.5-6.6) 10^3/uL Lymph # (Auto) 2.0 (1.5-3.5) 10^3/uL [place] # (Auto) 0.7 (0.0-1.0) 10^3/uL Eos # (Auto) 0.2 (0.0-0.7) 10^3/uL Baso # (Auto) 0.0 (0.0-0.1) 10^3/uL Absolute Nucleated RBC 0.00 x10^3/uL Nucleated RBC % 0.0 /100WBC Sodium 139 (135-145) mmol/L Potassium 3.9 (3.5-5.0) mmol/L Chloride 99 L (101-111) mmol/L Carbon Dioxide 31 (21-32) mmol/L Anion Gap 9.0 (6-13) BUN 28 H (6-20) mg/dL Creatinine 1.0 (0.4-1.0) mg/dL Estimated GFR (MDRD) 53 L (>89) Glucose 208 H (70-100) mg/dL POC Whole Bld Glucose 234 H (70 - 100) mg/dL Calcium 9.0 (8.5-10.3) mg/dL Phosphorus 3.6 (2.5-4.6) mg/dL Magnesium 1.9 (1.7-2.8) mg/dL 12/26/19 12/25/19 12/25/19 Range/Units 05:53 23:47 21:26 WBC (4.8-10.8) x10^3/uL RBC (4.20-5.40) 10^6/uL Hgb (12.0-16.0) g/dL Hct (37.0-47.0) % MCV (81.0-99.0) fL MCH (27.0-31.0) pg MCHC (32.0-36.0) g/dL RDW (12.0-15.0) % Plt Count (130-450) 10^3/uL MPV (7.9-10.8) fL Neut # (Auto) (1.5-6.6) 10^3/uL Lymph # (Auto) (1.5-3.5) 10^3/uL [place] # (Auto) (0.0-1.0) 10^3/uL Eos # (Auto) (0.0-0.7) 10^3/uL Baso # (Auto) (0.0-0.1) 10^3/uL Absolute Nucleated RBC x10^3/uL Nucleated RBC % /100WBC Sodium (135-145) mmol/L Potassium (3.5-5.0) mmol/L Chloride (101-111) mmol/L Carbon Dioxide (21-32) mmol/L Anion Gap (6-13) BUN (6-20) mg/dL Creatinine (0.4-1.0) mg/dL Estimated GFR (MDRD) (>89) Glucose (70-100) mg/dL POC Whole Bld Glucose 197 H 261 H 243 H (70 - 100) mg/dL Calcium (8.5-10.3) mg/dL Phosphorus (2.5-4.6) mg/dL Magnesium (1.7-2.8) mg/dL 12/25/19 Range/Units 16:43 WBC (4.8-10.8) x10^3/uL RBC (4.20-5.40) 10^6/uL Hgb (12.0-16.0) g/dL Hct (37.0-47.0) % MCV (81.0-99.0) fL MCH (27.0-31.0) pg MCHC (32.0-36.0) g/dL RDW (12.0-15.0) % Plt Count (130-450) 10^3/uL MPV (7.9-10.8) fL Neut # (Auto) (1.5-6.6) 10^3/uL Lymph # (Auto) (1.5-3.5) 10^3/uL [place] # (Auto) (0.0-1.0) 10^3/uL Eos # (Auto) (0.0-0.7) 10^3/uL Baso # (Auto) (0.0-0.1) 10^3/uL Absolute Nucleated RBC x10^3/uL Nucleated RBC % /100WBC Sodium (135-145) mmol/L Potassium (3.5-5.0) mmol/L Chloride (101-111) mmol/L Carbon Dioxide (21-32) mmol/L Anion Gap (6-13) BUN (6-20) mg/dL Creatinine (0.4-1.0) mg/dL Estimated GFR (MDRD) (>89) Glucose (70-100) mg/dL POC Whole Bld Glucose 327 H (70 - 100) mg/dL Calcium (8.5-10.3) mg/dL Phosphorus (2.5-4.6) mg/dL Magnesium (1.7-2.8) mg/dL ABX Reporting Has patient been on IV antibiotics over the past 48 hours?: Yes Assessment/Plan - Problem List (1) Pathological fracture of mandible Impression: s/p surgery of implant of hardware, followup surgeon's instruction IVF of NS, clinically present dehydration CXR, pt has slight elevated temperature in surgery, order incentive spirometery continue pain control diet per surgeon, full liquid now (2) Streptococcus viridans infection Assessment/Plan: Continue antibiotics Rocephin per sensitivities of the bacterial culture returned. (3) Cellulitis of submental space Assessment/Plan: s/p surgery to remove the hardware Continue Rocephin antibiotics continue probiotics (4) COPD with exacerbation Assessment/Plan: continue steroid and Steroid dose is tapering down. Continue with breath treatment (5) Type 2 diabetes mellitus pt has A1C is 10.7. The steroid use increased her glucose results however the steroids are being tapered down now quickly continue Lantus and SSI, ACHS to check glucose, and hypoglycemia protocol (6) Rheumatoid arthritis Assessment/Plan: As per Hx (7) CKD (chronic kidney disease) Assessment/Plan: Stable
[2019-12-26] MEDS: TOLTERODINE LA 2 MG CAPSULE PO SCH (13:55)
[2019-12-26] MEDS: LOSARTAN 50 MG TABLET PO SCH (13:55)
[2019-12-26] MEDS: MORPHINE 2 MG/ML CARPUJECT IVP PRN ×2 (14:45→18:52)
[2019-12-26] MEDS: SODIUM CHLORIDE 0.9% 1,000 ML IV SCH (15:42)
--- NOTE | 2019-12-26 15:57 | XRAY Report ---
Reason: fever, SOB Procedure Date: 12/26/2019 Accession Number: [id number] / [id number] Procedure: XR - Chest 1 View X-Ray CPT Code: 73033 Final Report FULL RESULT: EXAM: CHEST RADIOGRAPHY EXAM DATE: 12/26/2019 03:01 PM. CLINICAL HISTORY: Fever, SOB. COMPARISON: CHEST 1 VIEW 12/19/2019 11:30 AM. TECHNIQUE: 1 view. FINDINGS: Lungs/Pleura: Mild interstitial prominence, likely baseline for the patient. No focal opacities.No pleural effusion. No pneumothorax. Mediastinum: Within exam limitations, the cardiomediastinal contour is normal. Other: None. IMPRESSION: No acute cardiopulmonary process. Mild interstitial prominence is likely baseline for the patient. RADIA
[2019-12-26] MEDS: methylPREDNISolone SUCCINATE 40 MG/ML VIAL IVP SCH ×2 (16:02→21:49)
--- NOTE | 2019-12-26 17:01 | PROVIDER PROGRESS NOTE ---
Subjective - Prog Note Date Prog Note Date: 12/26/19 Prog Note Time: 17:00 - Subjective Subjective: Procedure: 1. ORIF of the right mandibular parasymphysis via transcervical approach 2. Removal of superficial hardware (external pin fixation) 3. Deep bone biopsy of the R mandibular parasymphysis Surgeon: Renny Magdaleno DDS EBL: 100 mL Complications: None UOP: 225 mL IV fluids: 1300 mL crystaloid Note: At the beginning of the case, wipeable leukoplakias were noted in the patient's oral mucosa, consistent with oral candidiasis. She was started on Nystatin mouthrinse. The hardware was very stable and soft tissue closure was good. Home tomorrow if she can take good PO, ambulate, and void, pending internal medicine clearance. Objective - Vital Signs/Intake & Output Vital Signs: Vital Signs x48h Temp Pulse Pulse Resp BP BP Pulse Ox 12/26/19 16:00 84 118/52 L 95 12/26/19 15:00 37.0 C 82 16 127/51 L 96 12/26/19 14:45 37.0 C 86 14 134/60 H 90 L 12/26/19 14:30 37.0 C 87 16 138/57 H 94 12/26/19 14:20 36.6 C 93 16 129/60 94 12/26/19 14:05 37.2 C 99 12 130/57 L 95 12/26/19 14:00 37.3 C 98 12 124/54 L 95 12/26/19 13:55 37.3 C 97 19 132/55 H 96 12/26/19 13:50 37.4 C 98 14 133/59 H 95 12/26/19 13:45 37.6 C H 96 12 132/53 H 95 12/26/19 13:40 37.6 C H 100 12 134/60 H 93 12/26/19 13:35 37.7 C H 105 H 14 134/60 H 92 12/26/19 13:30 37.8 C H 103 H 16 136/60 H 97 12/26/19 13:28 37.8 C H 103 H 19 136/62 H 97 Intake & Output: Intake & Output 12/23/19 12/24/19 12/25/19 12/26/19 23:59 23:59 23:59 23:59 Intake Total 1490 1300 2630 100 Output Total 850 4275 Balance 640 1300 -1645 100 - Lab Results Fish Bones: 12/26/19 06:45 12/26/19 06:45 Other Labs: Lab Results x24hrs 12/26/19 12/26/19 12/26/19 Range/Units 16:39 11:12 06:45 WBC 6.8 (4.8-10.8) x10^3/uL RBC 4.57 (4.20-5.40) 10^6/uL Hgb 13.9 (12.0-16.0) g/dL Hct 42.5 (37.0-47.0) % MCV 93.0 (81.0-99.0) fL MCH 30.4 (27.0-31.0) pg MCHC 32.7 (32.0-36.0) g/dL RDW 13.8 (12.0-15.0) % Plt Count 209 (130-450) 10^3/uL MPV 10.5 (7.9-10.8) fL Neut # (Auto) 3.9 (1.5-6.6) 10^3/uL Lymph # (Auto) 2.0 (1.5-3.5) 10^3/uL [place] # (Auto) 0.7 (0.0-1.0) 10^3/uL Eos # (Auto) 0.2 (0.0-0.7) 10^3/uL Baso # (Auto) 0.0 (0.0-0.1) 10^3/uL Absolute Nucleated RBC 0.00 x10^3/uL Nucleated RBC % 0.0 /100WBC Sodium (135-145) mmol/L Potassium (3.5-5.0) mmol/L Chloride (101-111) mmol/L Carbon Dioxide (21-32) mmol/L Anion Gap (6-13) BUN (6-20) mg/dL Creatinine (0.4-1.0) mg/dL Estimated GFR (MDRD) (>89) Glucose (70-100) mg/dL POC Whole Bld Glucose 254 H 234 H (70 - 100) mg/dL Calcium (8.5-10.3) mg/dL Phosphorus (2.5-4.6) mg/dL Magnesium (1.7-2.8) mg/dL 12/26/19 12/26/19 12/25/19 Range/Units 06:45 05:53 23:47 WBC (4.8-10.8) x10^3/uL RBC (4.20-5.40) 10^6/uL Hgb (12.0-16.0) g/dL Hct (37.0-47.0) % MCV (81.0-99.0) fL MCH (27.0-31.0) pg MCHC (32.0-36.0) g/dL RDW (12.0-15.0) % Plt Count (130-450) 10^3/uL MPV (7.9-10.8) fL Neut # (Auto) (1.5-6.6) 10^3/uL Lymph # (Auto) (1.5-3.5) 10^3/uL [place] # (Auto) (0.0-1.0) 10^3/uL Eos # (Auto) (0.0-0.7) 10^3/uL Baso # (Auto) (0.0-0.1) 10^3/uL Absolute Nucleated RBC x10^3/uL Nucleated RBC % /100WBC Sodium 139 (135-145) mmol/L Potassium 3.9 (3.5-5.0) mmol/L Chloride 99 L (101-111) mmol/L Carbon Dioxide 31 (21-32) mmol/L Anion Gap 9.0 (6-13) BUN 28 H (6-20) mg/dL Creatinine 1.0 (0.4-1.0) mg/dL Estimated GFR (MDRD) 53 L (>89) Glucose 208 H (70-100) mg/dL POC Whole Bld Glucose 197 H 261 H (70 - 100) mg/dL Calcium 9.0 (8.5-10.3) mg/dL Phosphorus 3.6 (2.5-4.6) mg/dL Magnesium 1.9 (1.7-2.8) mg/dL 12/25/19 Range/Units 21:26 WBC (4.8-10.8) x10^3/uL RBC (4.20-5.40) 10^6/uL Hgb (12.0-16.0) g/dL Hct (37.0-47.0) % MCV (81.0-99.0) fL MCH (27.0-31.0) pg MCHC (32.0-36.0) g/dL RDW (12.0-15.0) % Plt Count (130-450) 10^3/uL MPV (7.9-10.8) fL Neut # (Auto) (1.5-6.6) 10^3/uL Lymph # (Auto) (1.5-3.5) 10^3/uL [place] # (Auto) (0.0-1.0) 10^3/uL Eos # (Auto) (0.0-0.7) 10^3/uL Baso # (Auto) (0.0-0.1) 10^3/uL Absolute Nucleated RBC x10^3/uL Nucleated RBC % /100WBC Sodium (135-145) mmol/L Potassium (3.5-5.0) mmol/L Chloride (101-111) mmol/L Carbon Dioxide (21-32) mmol/L Anion Gap (6-13) BUN (6-20) mg/dL Creatinine (0.4-1.0) mg/dL Estimated GFR (MDRD) (>89) Glucose (70-100) mg/dL POC Whole Bld Glucose 243 H (70 - 100) mg/dL Calcium (8.5-10.3) mg/dL Phosphorus (2.5-4.6) mg/dL Magnesium (1.7-2.8) mg/dL
[2019-12-26] MEDS: NYSTATIN 500000 UNITS/5 ML UDC PO SCH ×2 (17:15→21:48)
--- NOTE | 2019-12-26 17:50 | OPERATIVE REPORT ---
DATE OF SERVICE: 12/26/2019 Physician: Renny Magdaleno DDS PROCEDURE PERFORMED 1. Open reduction and internal fixation of the right mandibular parasymphysis via transcervical approach. 2. Removal of superficial hardware of the external pin fixation system. 3. Deep bone biopsy of the right mandibular parasymphysis. SURGEON: Renny Magdaleno DDS. PREOPERATIVE DIAGNOSES 1. Mandible fracture of the right parasymphysis, pathologic. 2. Severely atrophic mandible. 3. Retained superficial hardware of the mandible. POSTOPERATIVE DIAGNOSES 1. Mandible fracture of the right parasymphysis, pathologic. 2. Severely atrophic mandible. 3. Retained hardware. ESTIMATED BLOOD LOSS: 100 mL. COMPLICATIONS: None. URINE OUTPUT: 225 mL. INTRAVENOUS FLUIDS: 1300 mL of crystalloid. IMPLANTS: A single reconstruction plate was placed on the mandible from ramus to ramus and several fixation screws, both locking and nonlocking. DRAINS, PACKS, CATHETERS: A Martinez catheter was placed at the beginning of the case and removed prior to emergence from anesthesia. INDICATIONS FOR PROCEDURE: Patient is an 84-year-old female who presented initially with jaw pain. A week ago in the operating room she was found to have a pathologic fracture of the right mandibular parasymphysis secondary to infected implant. It was decided that definitive open reduction and internal fixation of the mandible was indicated, as well as biopsy of the bone for pathologic examination. The risks, benefits, and alternatives of this plan were discussed with the patient, including pain, swelling, bleeding, infection, scarring, need for further surgery, complete paralysis of the lip and mouth, complete numbness of the lip and chin, need for further surgeries, failure of the hardware, malunion, nonunion, and failure to resolve her infection. Adequate time was given to answer all questions, and informed consent was obtained. DESCRIPTION OF PROCEDURE: The patient was brought to the main operating room and placed in a supine position on the operating table. General anesthesia was induced by the anesthesia team, and the airway was secured with a nasoendotracheal tube taped to the forehead in the usual fashion. The eyes were protected with Tegaderms. All pressure points were padded and checked. The patient was prepped and draped in the standard sterile fashion for a transcervical ORIF. A formal timeout was executed. Local anesthesia was achieved with 9 mL of 2% lidocaine with 1:100,000 epinephrine. It should be noted that this was only given after the dissection was completed, because of the need for nerve stimulation; thus, in order to be able to stimulate the nerves, only a mixture of 1:50,000 epinephrine was initially injected into the subcutaneous tissues, and the local anesthetic was injected at the end of the case. A throat pack was placed comprised of one Ray-Joshua. At the time of placement of the throat pack, a small amount of regurgitation of stomach contents was noticed in the oropharynx, suctioned, and removed from the oropharynx and hypopharynx. Attention was directed to the submandibular region. A skin marker was used to delineate the margins of the mandible on the skin. It was then used to draw the anticipated surgical incision 2 cm inferior to the border of the mandible. A #15 blade was used to make the incision from ramus to ramus through skin. Electrocautery, bipolar, and monopolar were both used to achieve good hemostasis throughout the case. After sharp dissection through the skin, blunt dissection was performed down to the level of the platysma and then sharp dissection through the platysma and through the superficial layer of the deep cervical fascia. During the platysma and subplatysmal dissection, a nerve stimulator was used to test the tissues prior to cutting. The dissection was completed first on the right side, first encountering the submandibular salivary gland, and then dissecting carefully through the submandibular salivary gland to find the facial artery and vein, which were tied off and bisected. The facial artery and vein were retracted superiorly, and then the dissection was carried easily down to the inferior border of the mandible. The pterygomasseteric sling was incised sharply, and a subperiosteal dissection was performed, exposing the mandible, inferior border, and lateral border on the ascending ramus back to the posterior border, all the way up to the symphysis region including the fracture. The fracture itself was easily identified. It was very mobile and at this point of the procedure, a rongeur was used to remove a specimen of the fracture and submit to pathology for microscopic evaluation. At this point in the procedure, a swab was also taken of the fracture for anaerobic culture. The dissection was then carried out on the left side, identical to that on the right, with the exception of the deep bone biopsy and the culture swab. The entire mandible was exposed. It should be noted that the superior aspect of the mandible was not exposed, because there was not desire to strip the blood supply off of any more mandible then was necessary. In fact, it was very easy to identify the anterior belly of the digastric muscle, and this was left in place on its insertion into the lingual aspect of the mandible. The pre-bent plate was fashioned to the mandible. Its fit was excellent. It was fixated to the mandible using a combination of self-capping and locking screws. The screws were placed using copious amounts of irrigation during the drilling and placement process. After the screws were placed on the left side, attention was then directed to the right. With the condyle seated, the plate still fit very well. The plate was fixated to the right mandible in a similar fashion. At this point, the entire surgical field was irrigated copiously. It should also be noted that a football hemant had been used to smooth down the edges of the fracture, which had the appearance of either osteomyelitic bone or just callus and unhealthy bone. At this point in the procedure, the mandible was found to be very stable. Intraoral examination revealed no evidence of dehiscence of the plate or of any of the screws and also no evidence of any impending soft tissue compromise because of the plate being adapted to the inferior border of the mandible. Closure was completed next, using 4-0 Vicryl suture to first close the periosteum and pterygomasseteric sling around the entire plate. Next the superficial layer of the deep cervical fascia was closed using 4-0 Vicryl suture. The platysma was closed using 4-0 Vicryl suture. A subdermal layer of 4-0 Vicryl suture was placed, and finally the skin was reapproximated using 5-0 Prolene suture. The patient's face was cleansed. The eyes were rinsed. The mouth was rinsed free of debris. The oropharynx was suctioned. The throat pack was removed. Care of the patient was returned to the anesthesia team for uneventful emergence from anesthesia. She was transferred to the PACU in stable condition. TD: 12/26/2019 17:20 ARMOND
[2019-12-26] MEDS: ATORVASTATIN 40 MG TABLET PO SCH (21:48)
[2019-12-26] MEDS: GABAPENTIN 300 MG CAPSULE PO SCH (21:48)
[2019-12-27] MEDS: SODIUM CHLORIDE FLUSH 0.9% 10 ML SYRINGE IVP SCH ×3 (00:06→15:38)
[2019-12-27] MEDS: SODIUM CHLORIDE 0.9% 1,000 ML IV SCH (01:13)
[2019-12-27] MEDS: ACETAMINOPHEN 325 MG TABLET PO PRN ×2 (01:18→15:37)
[2019-12-27 05:01] LABS: BASOPHILS % (AUTO) 0.2 %; HGB - HEMOGLOBIN 12.4 g/dL (12.0-16.0); LYMPHOCYTES % (AUTO) 10.6 %; MEAN CORPUSCULAR HEMOGLOBIN 30.5 pg (27.0-31.0); MEAN CORPUSCULAR HGB CONC 31.7 g/dL (32.0-36.0); MEAN CORPUSCULAR VOLUME 96.1 fL (81.0-99.0); MEAN PLATELET VOLUME 10.8 fL (7.9-10.8); MONOCYTES # (AUTO) 0.5 10^3/uL (0.0-1.0); MONOCYTES % (AUTO) 5.3 %; NEUTROPHILS # (AUTO) 7.6 10^3/uL (1.5-6.6); NEUTROPHILS % (AUTO) 83.5 %; PLT - PLATELET COUNT 214 10^3/uL (130-450); RED BLOOD COUNT 4.07 10^6/uL (4.20-5.40); WHITE BLOOD COUNT 9.1 x10^3/uL (4.8-10.8)
[2019-12-27 05:06] LABS: CALCIUM 7.7 mg/dL (8.5-10.3); CREATININE 1.2 mg/dL (0.4-1.0)
[2019-12-27] MEDS: methylPREDNISolone SUCCINATE 40 MG/ML VIAL IVP SCH (05:59)
[2019-12-27] MEDS: PANTOPRAZOLE 40 MG TABLET PO SCH (06:00)
[2019-12-27] MEDS: BUDESONIDE 0.5 MG/2 ML NEB INH SCH ×2 (08:12→19:39)
[2019-12-27] MEDS: FORMOTEROL FUMARATE NEB 20 MCG/2 ML INH SCH ×2 (08:12→19:39)
[2019-12-27] MEDS: INSULIN ASPART 300 UNIT/3 ML PEN SUBQ SCH ×4 (08:46→21:30)
[2019-12-27] MEDS ORDERED: ePHEDrine 50 MG/ML VIAL IVP ONE (08:52)
[2019-12-27] MEDS ORDERED: PROPOFOL 200 MG/20 ML VIAL IVP ONE (08:52)
[2019-12-27] MEDS ORDERED: ACETAMINOPHEN 1,000 MG/100 ML 100 ML IV ONE (08:52)
[2019-12-27] MEDS ORDERED: SUCCINYLCHOLINE 200 MG/10 ML VIAL IVP ONE (08:52)
[2019-12-27] MEDS ORDERED: GLYCOPYRROLATE 1 MG/5 ML VIAL IVP ONE (08:52)
[2019-12-27] MEDS ORDERED: ONDANSETRON 4 MG/2 ML VIAL IVP ONE (08:52)
[2019-12-27] MEDS ORDERED: DEXAMETHASONE 10 MG/ML VIAL IVP ONE (08:52)
[2019-12-27] MEDS ORDERED: LIDOCAINE-MPF 2% 5 ML VIAL IM ONE (08:52)
[2019-12-27] MEDS ORDERED: ROCURONIUM 50 MG/5 ML VIAL IVP ONE (08:52)
[2019-12-27] MEDS ORDERED: PHENYLEPHRINE 10 MG/ML VIAL IV ONE (08:52)
[2019-12-27] MEDS ORDERED: NEOSTIGMINE 1 MG/1 ML 10 ML MDV IVP ONE (08:52)
[2019-12-27] MEDS: MULTIVITAMIN W/MINERALS TABLET PO SCH (08:53)
[2019-12-27] MEDS: predniSONE 20 MG TABLET PO SCH (08:53)
[2019-12-27] MEDS: ASPIRIN EC 81 MG TABLET PO SCH (08:53)
[2019-12-27] MEDS: ENOXAPARIN 40 MG/0.4 ML SYRINGE SUBQ SCH (08:53)
[2019-12-27] MEDS: LACTOBACILLUS RHAMNOSUS GG CAPSULE PO SCH (08:53)
[2019-12-27] MEDS: LOSARTAN 50 MG TABLET PO SCH (08:53)
[2019-12-27] MEDS: TOLTERODINE LA 2 MG CAPSULE PO SCH (08:53)
[2019-12-27] MEDS: NYSTATIN 500000 UNITS/5 ML UDC PO SCH ×4 (09:00→21:27)
[2019-12-27] MEDS: cefTRIAXone 1 GM in SODIUM CHLORIDE 0.9% MINIBAG 100 ML IV SCH (09:02)
[2019-12-27] MEDS ORDERED: fentaNYL 100 MCG/2 ML VIAL IVP ONE (09:34)
[2019-12-27] MEDS ORDERED: MIDAZOLAM 2 MG/2 ML VIAL IVP ONE (09:34)
[2019-12-27] MEDS: INSULIN GLARGINE 300 UNIT/3 ML PEN SUBQ SCH (09:53)
[2019-12-27] MEDS: polyethylene glycoL 3350 17 GM PACKET PO SCH (09:59)
[2019-12-27] MEDS: BACITRACIN ZINC OINT 1 PACKET TOP SCH ×2 (10:50→21:28)
[2019-12-27] MEDS: CHLORHEXIDINE GLUCONATE 15 ML UDC PO SCH ×2 (10:50→21:27)
--- NOTE | 2019-12-27 13:33 | PROVIDER PROGRESS NOTE ---
Subjective - Prog Note Date Prog Note Date: 12/27/19 Prog Note Time: 13:30 - Subjective Pt reports feeling: Improved (No events overnight. Complains of constipation. Reports pain as "none." Taking good PO, ambulating and voiding without difficulty. Afebrile.) Objective - Vital Signs/Intake & Output Vital Signs: Vital Signs x48h Temp Pulse Resp BP Pulse Ox 12/27/19 07:55 36.6 C 76 18 135/64 H 96 Intake & Output: Intake & Output 12/24/19 12/25/19 12/26/19 12/27/19 23:59 23:59 23:59 23:59 Intake Total 1300 2630 450 2886.667 Output Total 4275 0 400 Balance 1300 -3268 130 0173.667 - Objective General Appearance: positive: No acute distress, Alert Eyes Bilateral: positive: PERRL, EOMI ENT: positive: Other (Sutures clean, dry, and intact. Moderate postoperative edema and ecchymosis. MAURA wnl. No intraoral dehiscence. No oral leukoplakias. Bilateral V3 hypoesthesia. Right marginal mandibular branch: 1/6 [facility] Left marginal mandibular branch: 3/6 [facility]) - Lab Results Fish Bones: 12/27/19 04:40 12/27/19 04:40 Other Labs: Lab Results x24hrs 12/27/19 12/27/19 12/27/19 Range/Units 11:27 07:29 04:40 WBC 9.1 (4.8-10.8) x10^3/uL RBC 4.07 L (4.20-5.40) 10^6/uL Hgb 12.4 (12.0-16.0) g/dL Hct 39.1 (37.0-47.0) % MCV 96.1 (81.0-99.0) fL MCH 30.5 (27.0-31.0) pg MCHC 31.7 L (32.0-36.0) g/dL RDW 14.0 (12.0-15.0) % Plt Count 214 (130-450) 10^3/uL MPV 10.8 (7.9-10.8) fL Neut # (Auto) 7.6 H (1.5-6.6) 10^3/uL Lymph # (Auto) 1.0 L (1.5-3.5) 10^3/uL Mineral # (Auto) 0.5 (0.0-1.0) 10^3/uL Eos # (Auto) 0.0 (0.0-0.7) 10^3/uL Baso # (Auto) 0.0 (0.0-0.1) 10^3/uL Absolute Nucleated RBC 0.00 x10^3/uL Nucleated RBC % 0.0 /100WBC Sodium (135-145) mmol/L Potassium (3.5-5.0) mmol/L Chloride (101-111) mmol/L Carbon Dioxide (21-32) mmol/L Anion Gap (6-13) BUN (6-20) mg/dL Creatinine (0.4-1.0) mg/dL Estimated GFR (MDRD) (>89) Glucose (70-100) mg/dL POC Whole Bld Glucose 216 H 279 H (70 - 100) mg/dL Calcium (8.5-10.3) mg/dL 12/27/19 12/27/19 12/26/19 Range/Units 04:40 02:21 20:38 WBC (4.8-10.8) x10^3/uL RBC (4.20-5.40) 10^6/uL Hgb (12.0-16.0) g/dL Hct (37.0-47.0) % MCV (81.0-99.0) fL MCH (27.0-31.0) pg MCHC (32.0-36.0) g/dL RDW (12.0-15.0) % Plt Count (130-450) 10^3/uL MPV (7.9-10.8) fL Neut # (Auto) (1.5-6.6) 10^3/uL Lymph # (Auto) (1.5-3.5) 10^3/uL [place] # (Auto) (0.0-1.0) 10^3/uL Eos # (Auto) (0.0-0.7) 10^3/uL Baso # (Auto) (0.0-0.1) 10^3/uL Absolute Nucleated RBC x10^3/uL Nucleated RBC % /100WBC Sodium 135 (135-145) mmol/L Potassium 4.7 (3.5-5.0) mmol/L Chloride 100 L (101-111) mmol/L Carbon Dioxide 26 (21-32) mmol/L Anion Gap 9.0 (6-13) BUN 29 H (6-20) mg/dL Creatinine 1.2 H (0.4-1.0) mg/dL Estimated GFR (MDRD) 43 L (>89) Glucose 324 H (70-100) mg/dL POC Whole Bld Glucose 273 H 269 H (70 - 100) mg/dL Calcium 7.7 L (8.5-10.3) mg/dL 12/26/19 Range/Units 16:39 WBC (4.8-10.8) x10^3/uL RBC (4.20-5.40) 10^6/uL Hgb (12.0-16.0) g/dL Hct (37.0-47.0) % MCV (81.0-99.0) fL MCH (27.0-31.0) pg MCHC (32.0-36.0) g/dL RDW (12.0-15.0) % Plt Count (130-450) 10^3/uL MPV (7.9-10.8) fL Neut # (Auto) (1.5-6.6) 10^3/uL Lymph # (Auto) (1.5-3.5) 10^3/uL [place] # (Auto) (0.0-1.0) 10^3/uL Eos # (Auto) (0.0-0.7) 10^3/uL Baso # (Auto) (0.0-0.1) 10^3/uL Absolute Nucleated RBC x10^3/uL Nucleated RBC % /100WBC Sodium (135-145) mmol/L Potassium (3.5-5.0) mmol/L Chloride (101-111) mmol/L Carbon Dioxide (21-32) mmol/L Anion Gap (6-13) BUN (6-20) mg/dL Creatinine (0.4-1.0) mg/dL Estimated GFR (MDRD) (>89) Glucose (70-100) mg/dL POC Whole Bld Glucose 254 H (70 - 100) mg/dL Calcium (8.5-10.3) mg/dL Assessment/Plan - Problem List (1) Pathological fracture of mandible Impression: POD #1 s/p reconstruction of the mandible with recon plate via transcervical approach, following a normal postoperative course. P: OK for discharge to home from OMFS standpoint - f/u in my clinic in one week for suture removal - keep sutures clean and scab free. Shower ok. Do not scrub the wounds. Keep moist with vaseline. - Puree diet for at least four weeks. - Expect full resolution of left marginal mandibular branch weakness - continue Nystatin mouthrinse after d/c for five days - d/c w/ Cefdnir for five days - f/u cultures - f/u biopsy results - postoperative CT in office. Appreciate IM assistance. Please call with questions. Renny Magdaleno DDS [phone]
--- NOTE | 2019-12-27 15:06 | PROVIDER PROGRESS NOTE ---
Subjective - Prog Note Date Prog Note Date: 12/27/19 - Subjective Pt reports feeling: Improved Subjective: pt clinic present dehydration and lab reveals elevated creatinine. she also complain pain at the jaw, some difficult to swallow the diet. pt denies fever, chill, chest pain. Current Medications - Current Medications Current Medications: Active Medications Acetaminophen (Tylenol) 650 mg PO Q4HR PRN PRN Reason: Pain 1 to 4 Last Admin: 12/27/19 01:18 Dose: 650 mg Albuterol () 2.5 mg INH RTQ4H PRN PRN Reason: Wheezing Albuterol/Ipratropium (Duoneb) 3 ml INH Q4HR PRN PRN Reason: Wheezing Last Admin: 12/26/19 07:30 Dose: 3 ml Aspirin (Ecotrin) 81 mg PO DAILY [facility] Last Admin: 12/27/19 08:53 Dose: 81 mg Atorvastatin Calcium (Lipitor) 40 mg PO QPM [facility] Last Admin: 12/26/19 21:48 Dose: Not Given Bacitracin (Bacitracin) 1 packet TOP BID [facility] Last Admin: 12/27/19 10:50 Dose: 1 packet Budesonide (Pulmicort) 0.5 mg INH RTBID [facility] Last Admin: 12/27/19 08:12 Dose: Not Given Carboxymethylcellulose (Refresh 1% Ophth Drops) 1 drops EACHEYE PRN PRN PRN Reason: Dry Eye Chlorhexidine Gluconate (Peridex) 15 ml PO BID [facility] Last Admin: 12/27/19 10:50 Dose: 15 ml Diphenhydramine HCl (Benadryl) 25 mg PO Q4HR PRN PRN Reason: Allergy Symptoms Last Admin: 12/25/19 21:40 Dose: 25 mg Enoxaparin Sodium (Lovenox) 40 mg SUBQ DAILY [facility] Last Admin: 12/27/19 08:53 Dose: 40 mg Formoterol Fumarate (Perforomist) 20 mcg INH RTBID [facility] Last Admin: 12/27/19 08:12 Dose: Not Given Gabapentin (Neurontin) 900 mg PO QPM [facility] Last Admin: 12/26/19 21:48 Dose: Not Given Hydralazine HCl (Apresoline Inj) 10 mg IVP QID PRN PRN Reason: Hypertensive Emergency Last Admin: 12/22/19 03:58 Dose: 10 mg Hydrocortisone (Hydrocortisone) 1 applic TOP BID PRN PRN Reason: ITCHING Last Admin: 12/24/19 22:38 Dose: 1 applic Ceftriaxone Sodium 1 gm/ (Sodium Chloride) 100 mls @ 200 mls/hr IV DAILY [facility] Last Infusion: 12/27/19 09:59 Dose: Infused Insulin Aspart (Novolog) 3 - 11 unit SUBQ 0800,1200,1700,2100 [facility]; Protocol Last Admin: 12/27/19 12:31 Dose: 5 unit Insulin Glargine (Lantus Solostar) 20 unit SUBQ DAILY [facility] Last Admin: 12/27/19 09:53 Dose: 20 unit Lactobacillus Rhamnosus (Culturelle) 1 cap PO DAILY [facility] Last Admin: 12/27/19 08:53 Dose: 1 cap Losartan Potassium (Cozaar) 50 mg PO DAILY [facility] Last Admin: 12/27/19 08:53 Dose: 50 mg Mineral Oil (Cavilon) 1 applic TOP PRN PRN PRN Reason: Skin Care Last Admin: 12/24/19 02:08 Dose: 1 applic Morphine Sulfate (Morphine (Carpuject)) 2 mg IVP Q2HR PRN PRN Reason: PAIN Last Admin: 12/26/19 18:52 Dose: 2 mg Multi-Ingredient Ointment (Zinc Oxide) 1 applic TOP PRN PRN PRN Reason: Skin Care Multivitamins/Minerals (Theragran M) 1 tab PO DAILYWM [facility] Last Admin: 12/27/19 08:53 Dose: 1 tab Nystatin (Mycostatin) 5 ml PO QID [facility] Stop: 01/01/20 23:59 Last Admin: 12/27/19 14:24 Dose: 5 ml Oxycodone HCl (Roxicodone) 5 mg PO Q6HR PRN PRN Reason: PAIN Last Admin: 12/21/19 05:00 Dose: 5 mg Pantoprazole Sodium (Protonix) 40 mg PO QDAC [facility] Last Admin: 12/27/19 06:00 Dose: 40 mg Polyethylene Glycol (Miralax) 17 gm PO DAILY [facility] Last Admin: 12/27/19 09:59 Dose: Not Given Prednisone (Deltasone) 20 mg PO DAILYWM [facility] Last Admin: 12/27/19 08:53 Dose: 20 mg Sodium Chloride (Normal Saline Flush 0.9%) 10 ml IVP 0100,0900,1700 [facility] Last Admin: 12/27/19 06:00 Dose: 10 ml Sodium Chloride (Normal Saline Flush 0.9%) 10 ml IVP PRN PRN PRN Reason: NEEDED PER PROVIDER ORDERS Last Admin: 12/24/19 21:06 Dose: 10 ml Throat Lozenges (Cepacol) 1 lozenge MM Q2HR PRN PRN Reason: Throat pain Last Admin: 12/24/19 06:55 Dose: 1 lozenge Tolterodine Tartrate (Detrol La) 2 mg PO DAILY [facility] Last Admin: 12/27/19 08:53 Dose: 2 mg Wheat Dextrin (Benefiber) 1 packet PO DAILY PRN PRN Reason: Constipation Albuterol Sulfate [Proair Hfa Inhaler] 1 puffs INH Q4H PRN 12/14/19 Aspirin [Aspirin EC] 81 mg PO DAILY 12/14/19 Atorvastatin [Lipitor] 40 mg PO DAILY 12/14/19 Clindamycin HCl [Clindamycin 300MG CAP] 300 mg PO TID 12/14/19 Fluticasone/Salmeterol [Advair 250-50 Diskus] 1 puffs INH BID 12/14/19 Gabapentin 900 mg PO DAILY PM 12/14/19 Insulin Aspart [NovoLOG] 10 units INJ TIDWM 12/14/19 Insulin Glargine [Lantus Solostar] 28 units INJ DAILY 12/14/19 Omeprazole 20 mg PO DAILY 12/14/19 Telmisartan [Micardis] 10 mg PO DAILY 12/14/19 Tiotropium Row[place] [Spiriva Respimat] 4 gm IH DAILY 12/14/19 Tolterodine Tartrate [Detrol LA] 2 mg PO DAILY 12/14/19 Objective - Vital Signs/Intake & Output Vital Signs: Vital Signs x48h Temp Pulse Resp BP Pulse Ox 12/27/19 07:55 36.6 C 76 18 135/64 H 96 Intake & Output: Intake & Output 12/24/19 12/25/19 12/26/19 12/27/19 23:59 23:59 23:59 23:59 Intake Total 1300 2630 450 3406.667 Output Total 4275 0 935 Balance 1300 -6948 039 7777.667 - Objective General Appearance: positive: Alert, Mild distress. negative: Lethargic Eyes Bilateral: positive: Normal inspection, PERRL, No lid inflammation ENT: positive: Dry mucous membranes. negative: Purulent nasal drainage, Oral lesions Neck: positive: Thyroid nml, Trachea midline, Thyromegaly. negative: Stiff neck, Tracheal deviation Respiratory: positive: Chest non-tender, No respiratory distress. negative: Rales Cardiovascular: positive: Regular rate & rhythm, No murmur, No gallop. negative: Irregularly irregular, Extrasystoles, Tachycardia, Bradycardia, JVD present, Systolic murmur, Diastolic murmur Peripheral Pulses: 2+ Radial (R), 2+ Radial (L), 2+ Popliteal (R), 2+ Popliteal (L) Abdomen: positive: Non-tender, No organomegaly, Nml bowel sounds, No distention. negative: Tenderness, Guarding, Rebound Back: positive: Nml inspection. negative: CVA tenderness (R), CVA tenderness (L) Skin: positive: Color nml, No rash, Warm, Dry. negative: Cyanosis, Diaphoresis, Pallor Extremities: positive: Non-tender, Full ROM, Nml appearance. negative: Calf tenderness, Esdras's sign/cords Neurologic/Psychiatric: positive: Oriented x3, Motor nml, Sensation nml, Mood/affect nml. negative: Weakness, Sensory loss, Facial droop, Slurred/abnml speech, Depressed mood/affect - Lab Results Fish Bones: 12/27/19 04:40 12/27/19 04:40 Other Labs: Lab Results x24hrs 12/27/19 12/27/19 12/27/19 Range/Units 11:27 07:29 04:40 WBC 9.1 (4.8-10.8) x10^3/uL RBC 4.07 L (4.20-5.40) 10^6/uL Hgb 12.4 (12.0-16.0) g/dL Hct 39.1 (37.0-47.0) % MCV 96.1 (81.0-99.0) fL MCH 30.5 (27.0-31.0) pg MCHC 31.7 L (32.0-36.0) g/dL RDW 14.0 (12.0-15.0) % Plt Count 214 (130-450) 10^3/uL MPV 10.8 (7.9-10.8) fL Neut # (Auto) 7.6 H (1.5-6.6) 10^3/uL Lymph # (Auto) 1.0 L (1.5-3.5) 10^3/uL [place] # (Auto) 0.5 (0.0-1.0) 10^3/uL Eos # (Auto) 0.0 (0.0-0.7) 10^3/uL Baso # (Auto) 0.0 (0.0-0.1) 10^3/uL Absolute Nucleated RBC 0.00 x10^3/uL Nucleated RBC % 0.0 /100WBC Sodium (135-145) mmol/L Potassium (3.5-5.0) mmol/L Chloride (101-111) mmol/L Carbon Dioxide (21-32) mmol/L Anion Gap (6-13) BUN (6-20) mg/dL Creatinine (0.4-1.0) mg/dL Estimated GFR (MDRD) (>89) Glucose (70-100) mg/dL POC Whole Bld Glucose 216 H 279 H (70 - 100) mg/dL Calcium (8.5-10.3) mg/dL 12/27/19 12/27/19 12/26/19 Range/Units 04:40 02:21 20:38 WBC (4.8-10.8) x10^3/uL RBC (4.20-5.40) 10^6/uL Hgb (12.0-16.0) g/dL Hct (37.0-47.0) % MCV (81.0-99.0) fL MCH (27.0-31.0) pg MCHC (32.0-36.0) g/dL RDW (12.0-15.0) % Plt Count (130-450) 10^3/uL MPV (7.9-10.8) fL Neut # (Auto) (1.5-6.6) 10^3/uL Lymph # (Auto) (1.5-3.5) 10^3/uL [place] # (Auto) (0.0-1.0) 10^3/uL Eos # (Auto) (0.0-0.7) 10^3/uL Baso # (Auto) (0.0-0.1) 10^3/uL Absolute Nucleated RBC x10^3/uL Nucleated RBC % /100WBC Sodium 135 (135-145) mmol/L Potassium 4.7 (3.5-5.0) mmol/L Chloride 100 L (101-111) mmol/L Carbon Dioxide 26 (21-32) mmol/L Anion Gap 9.0 (6-13) BUN 29 H (6-20) mg/dL Creatinine 1.2 H (0.4-1.0) mg/dL Estimated GFR (MDRD) 43 L (>89) Glucose 324 H (70-100) mg/dL POC Whole Bld Glucose 273 H 269 H (70 - 100) mg/dL Calcium 7.7 L (8.5-10.3) mg/dL 12/26/19 Range/Units 16:39 WBC (4.8-10.8) x10^3/uL RBC (4.20-5.40) 10^6/uL Hgb (12.0-16.0) g/dL Hct (37.0-47.0) % MCV (81.0-99.0) fL MCH (27.0-31.0) pg MCHC (32.0-36.0) g/dL RDW (12.0-15.0) % Plt Count (130-450) 10^3/uL MPV (7.9-10.8) fL Neut # (Auto) (1.5-6.6) 10^3/uL Lymph # (Auto) (1.5-3.5) 10^3/uL [place] # (Auto) (0.0-1.0) 10^3/uL Eos # (Auto) (0.0-0.7) 10^3/uL Baso # (Auto) (0.0-0.1) 10^3/uL Absolute Nucleated RBC x10^3/uL Nucleated RBC % /100WBC Sodium (135-145) mmol/L Potassium (3.5-5.0) mmol/L Chloride (101-111) mmol/L Carbon Dioxide (21-32) mmol/L Anion Gap (6-13) BUN (6-20) mg/dL Creatinine (0.4-1.0) mg/dL Estimated GFR (MDRD) (>89) Glucose (70-100) mg/dL POC Whole Bld Glucose 254 H (70 - 100) mg/dL Calcium (8.5-10.3) mg/dL ABX Reporting Has patient been on IV antibiotics over the past 48 hours?: Yes Assessment/Plan - Problem List (1) Dehydration Impression: 12/26 pt clinically present dehydration, dry mouth and elevated creatinine and BUN. it is likely caused pt did not have enough oral input after pt had jaw surgery, even pt was given IVF of NS. IVF, lab monitor. (2) Pathological fracture of mandible Impression: 12/26 s/p surgery on yesterday, followup surgeon and plan d/c pt on tomorrow. continue pain control continue liquid diet s/p surgery of implant of hardware, followup surgeon's instruction IVF of NS, clinically present dehydration CXR, pt has slight elevated temperature in surgery, order incentive spirometery continue pain control diet per surgeon, full liquid now (3) Streptococcus viridans infection Assessment/Plan: 12/26 continue IVF of Rocephin, discussed with surgeon for d/c PO antibiotics. Continue antibiotics Rocephin per sensitivities of the bacterial culture returned. (4) Cellulitis of submental space Assessment/Plan: 12/26 continue IVF of Rocephin s/p surgery to remove the hardware Continue Rocephin antibiotics continue probiotics (5) COPD with exacerbation Assessment/Plan: 12/26 pt has 96% sat on 2 liter of O2, will try to wane off O2, pt did not take O2 at home. continue lower dosage of steroid. continue steroid and Steroid dose is tapering down. Continue with breath treatment (6) Type 2 diabetes mellitus 12/26 glucose is better controlled. and steroid is reduced. continue SSI, and hypoglycemia protocol pt has A1C is 10.7. The steroid use increased her glucose results however the steroids are being tapered down now quickly continue Lantus and SSI, ACHS to check glucose, and hypoglycemia protocol (7) Rheumatoid arthritis Assessment/Plan: As per Hx (8) CKD (chronic kidney disease) Assessment/Plan: 12/26 slight worsen, dehydration, will add IVF of NS, and continue lab monitor Stable
[2019-12-27] MEDS: diphenhydrAMINE 25 MG CAPSULE PO PRN (18:10)
[2019-12-27] MEDS: HYDROCORTISONE 1% CREAM 28 GM TUBE TOP PRN (18:17)
[2019-12-27] MEDS ORDERED: INSULIN GLARGINE 300 UNIT/3 ML PEN SUBQ SCH (21:00)
[2019-12-27] MEDS: GABAPENTIN 300 MG CAPSULE PO SCH (21:27)
[2019-12-27] MEDS: ATORVASTATIN 40 MG TABLET PO SCH (21:28)
[2019-12-28] MEDS: SODIUM CHLORIDE FLUSH 0.9% 10 ML SYRINGE IVP SCH ×2 (01:37→10:59)
[2019-12-28 05:04] LABS: BASOPHILS % (AUTO) 0.5 %; EOSINOPHILS # (AUTO) 0.1 10^3/uL (0.0-0.7); EOSINOPHILS % (AUTO) 0.9 %; HGB - HEMOGLOBIN 12.2 g/dL (12.0-16.0); LYMPHOCYTES # (AUTO) 1.9 10^3/uL (1.5-3.5); LYMPHOCYTES % (AUTO) 22.3 %; MEAN CORPUSCULAR HEMOGLOBIN 30.4 pg (27.0-31.0); MEAN PLATELET VOLUME 10.7 fL (7.9-10.8); MONOCYTES # (AUTO) 0.8 10^3/uL (0.0-1.0); MONOCYTES % (AUTO) 8.8 %; NEUTROPHILS # (AUTO) 5.7 10^3/uL (1.5-6.6); PLT - PLATELET COUNT 216 10^3/uL (130-450); RED BLOOD COUNT 4.01 10^6/uL (4.20-5.40); RED CELL DISTRIBUTION WIDTH 13.9 % (12.0-15.0); WHITE BLOOD COUNT 8.6 x10^3/uL (4.8-10.8)
[2019-12-28 05:10] LABS: CALCIUM 8.5 mg/dL (8.5-10.3); CREATININE 0.9 mg/dL (0.4-1.0)
[2019-12-28] MEDS: PANTOPRAZOLE 40 MG TABLET PO SCH (05:59)
[2019-12-28] MEDS: ACETAMINOPHEN 325 MG TABLET PO PRN (06:04)
[2019-12-28] MEDS: FORMOTEROL FUMARATE NEB 20 MCG/2 ML INH SCH (07:51)
[2019-12-28] MEDS: IPRATROPIUM/ALBUTEROL 3 ML NEB INH PRN (07:51)
[2019-12-28] MEDS: BUDESONIDE 0.5 MG/2 ML NEB INH SCH (07:51)
[2019-12-28] MEDS: MULTIVITAMIN W/MINERALS TABLET PO SCH (08:13)
[2019-12-28] MEDS: predniSONE 20 MG TABLET PO SCH (08:13)
[2019-12-28] MEDS: INSULIN ASPART 300 UNIT/3 ML PEN SUBQ SCH (08:18)
[2019-12-28] MEDS: ASPIRIN EC 81 MG TABLET PO SCH (08:59)
[2019-12-28] MEDS: cefTRIAXone 1 GM in SODIUM CHLORIDE 0.9% MINIBAG 100 ML IV SCH (09:05)
[2019-12-28] MEDS: NYSTATIN 500000 UNITS/5 ML UDC PO SCH (09:06)
[2019-12-28] MEDS: TOLTERODINE LA 2 MG CAPSULE PO SCH (09:07)
[2019-12-28] MEDS: LACTOBACILLUS RHAMNOSUS GG CAPSULE PO SCH (09:08)
[2019-12-28] MEDS: polyethylene glycoL 3350 17 GM PACKET PO SCH (09:10)
[2019-12-28] MEDS: LOSARTAN 50 MG TABLET PO SCH (09:11)
[2019-12-28] MEDS: BACITRACIN ZINC OINT 1 PACKET TOP SCH (09:15)
[2019-12-28] MEDS: INSULIN GLARGINE 300 UNIT/3 ML PEN SUBQ SCH (09:24)
[2019-12-28] MEDS: ENOXAPARIN 40 MG/0.4 ML SYRINGE SUBQ SCH (09:32)
[2019-12-28] MEDS: CHLORHEXIDINE GLUCONATE 15 ML UDC PO SCH (09:33)
[2019-12-28 11:17] VITALS: BP 144/63
--- NOTE | 2019-12-28 11:49 | Discharge Plan ---
Discharge Plan Problem Reviewed?: Yes Disposition: Home, Self Care Condition: Stable Prescriptions: Acetaminophen [Tylenol] 650 mg PO Q6HR PRN #15 tablet PRN Reason: Pain 1 to 4 Cefdinir 300 mg PO BID 5 Days #10 capsule Nystatin 100,000 unit PO QID 5 Days #100 ml Diet: Diabetic Activity Restrictions: Activity as Tolerated Shower Restrictions: No (fall precaution) Instruction Topics: Nystatin oral suspension, Cefdinir capsules, Acetaminophen chewable tablets Health Concerns: status post operation care Plan of Treatment: - f/u in Dr. Magdaleno clinic in one week for suture removal - keep sutures clean and scab free. Shower ok. Do not scrub the wounds. Keep moist with vaseline. - Puree diet for at least four weeks. - Expect full resolution of left marginal mandibular branch weakness - continue Nystatin mouthrinse after d/c for five days - d/c w/ Cefdnir for five days - f/u cultures - f/u biopsy results - postoperative CT in office. Care Goals: stabilization and improvement/cure of your medical conditions Assessment: discussed with you the care plan, you understood. Additional Instructions or Follow Up instructions: you may followup your PCP in one to two weeks, followup Dr. Magdaleno in one week. Should your symptoms return or worsen, you may present ER or call 911 for help. No Smoking: If you smoke, Please STOP! Call for help. Follow-up with: Esme Garcia MD [Primary Care Provider] -
--- NOTE | 2019-12-28 11:57 | DISCHARGE SUMMARY ---
"Discharge Summary Admit Date: 12/10/19 Discharge Date: 12/28/19 Discharging Provider: Gianluca Whyte Primary Care Provider: Dr. Garcia Condition at Discharge: Stable Discharge Disposition: 01 Home, Self Care Discharge Facility Name: home - DIAGNOSES Admission Diagnoses: (1) Mandibular body fracture (2) Superficial foreign body gum without major open wound with infection (3) COPD (chronic obstructive pulmonary disease) (4) Type 2 diabetes mellitus (5) Depression (6) Rheumatoid arthritis (7) Chronic renal disease Discharge Diagnoses with Status of Each Condition: (1) Mandibular body fracture stable, pt had ORIF of the right mandibular parasymphysis via transcervical approach, Removal of superficial hardware (external pin fixation), Deep bone biopsy of the R mandibular parasymphysis done by surgeon Dr. Magdaleno. followup Dr. Magdaleno in one week (2) Superficial foreign body gum without major open wound with infection controlled and stable. pt had I/D don by surgeon. culture reveals streptococus viridans bacteremia. pt is prescribed Cefdinis antibiotics to finish the treatment course. (3) COPD (chronic obstructive pulmonary disease) stable. pt does not need home oxygen. continue home breath treatment. (4) Type 2 diabetes mellitus stable. pt is educated for medical compliance. pt has A1C 10.7 (5) Depression stable (6) Rheumatoid arthritis stable (7) Chronic renal disease stable - HPI History of Present Illness: refer from Dr. Garcia's HPI on 12/19/2019 84 yo F with T2DM on insulin therapy, COPD, CKD who fell on Wednesday 12APR hitting her head on a bookcase. She was seen in [facility] ER and found to have a jaw fracture and infection of an implant in her jaw. She saw her oral surgeon today who wanted to admit her for hte infection and surgery. She currently feels okay just has pain in her jaw. She states the swelling on her face has improved while on the oral antibiotics. - CONSULTS | PROCEDURES Consultations: Dr. 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 Surgeon Dr. Magdaleno was consulted for pt. pt had twice surgery in this hospital course. First one pt had Removal of failed implant, Deep bone biopsy of the anterior mandible, Incision and Drainage of the submental space, Stabilization of mandible fracture with external pin fixation. the second is ORIF of the right mandibular parasymphysis via transcervical approach, Removal of superficial hardware (external pin fixation), Deep bone biopsy of the R mandibular parasymphysis. Both was done by surgeon Dr. Magdaleno. pt was treated with antibiotics for her infection. pt was treated with her COPD and DM2. pt was d/c with antibiotics Cefdinir, and advise followup Dr. magdaleno in one week. (1) Mandibular body fracture stable, pt had ORIF of the right mandibular parasymphysis via transcervical approach, Removal of superficial hardware (external pin fixation), Deep bone biopsy of the R mandibular parasymphysis done by surgeon Dr. Magdaleno. followup Dr. Magdaleno in one week (2) Superficial foreign body gum without major open wound with infection controlled and stable. pt had I/D don by surgeon. culture reveals streptococus viridans bacteremia. pt is prescribed Cefdinis antibiotics to finish the treatment course. (3) COPD (chronic obstructive pulmonary disease) stable. pt does not need home oxygen. continue home breath treatment. (4) Type 2 diabetes mellitus stable. pt is educated for medical compliance. pt has A1C 10.7 (5) Depression stable (6) Rheumatoid arthritis stable (7) Chronic renal disease stable - ALLERGIES Allergies/Adverse Reactions: Allergies Allergy/AdvReac Type Severity Reaction Status Date / Time lisinopril Allergy Unknown Verified 12/14/19 20:06 mushroom Allergy Rash Verified 12/15/19 17:51 Penicillins Allergy Unknown Verified 12/14/19 20:06 shellfish derived Allergy Hives Verified 12/14/19 20:06 - MEDICATIONS Home Medications: Ambulatory Orders Medication Instructions Recorded Confirmed Albuterol Sulfate [Proair Hfa 1 puffs INH Q4H PRN 12/14/19 12/14/19 Inhaler] Aspirin [Aspirin EC] 81 mg PO DAILY 12/14/19 12/14/19 Atorvastatin [Lipitor] 40 mg PO DAILY 12/14/19 12/14/19 Fluticasone/Salmeterol [Advair 1 puffs INH BID 12/14/19 12/14/19 250-50 Diskus] Gabapentin 900 mg PO DAILY PM 12/14/19 12/14/19 Insulin Aspart [NovoLOG] 10 units INJ TIDWM 12/14/19 12/14/19 Insulin Glargine [Lantus Solostar] 28 units INJ DAILY 12/14/19 12/14/19 Omeprazole 20 mg PO DAILY 12/14/19 12/14/19 Telmisartan [Micardis] 10 mg PO DAILY 12/14/19 12/14/19 Tiotropium Organ [Spiriva 4 gm IH DAILY 12/14/19 12/14/19 Respimat] Tolterodine Tartrate [Detrol LA] 2 mg PO DAILY 12/14/19 12/14/19 Acetaminophen [Tylenol] 650 mg PO Q6HR PRN #15 tablet 12/28/19 Cefdinir 300 mg PO BID 5 Days #10 capsule 12/28/19 Nystatin 100,000 unit PO QID 5 Days #100 ml 12/28/19 - PHYSICAL EXAM AT DISCHARGE General Appearance: positive: No acute distress, Alert. negative: Lethargic Eyes Bilateral: positive: Normal inspection, PERRL, No lid inflammation ENT: positive: No signs of dehydration. negative: Purulent nasal drainage, Oral lesions, Dry mucous membranes Neck: positive: Trachea midline. negative: Thyromegaly, Stiff neck, Tracheal deviation Respiratory: positive: Chest non-tender, No respiratory distress. negative: Wheezes, Rales, Rhonchi Cardiovascular: positive: Regular rate & rhythm, No murmur, No gallop. negative: Tachycardia, Bradycardia, JVD present, Systolic murmur, Diastolic murmur Peripheral Pulses: positive: 2+ Abdomen: positive: Non-tender, No organomegaly, Nml bowel sounds, No distention. negative: Tenderness, Guarding, Rebound Back: positive: Nml inspection. negative: CVA tenderness (R), CVA tenderness (L) Skin: positive: Warm, Dry. negative: Cyanosis, Diaphoresis, Pallor, Skin rash Extremities: positive: Non-tender, Full ROM, Nml appearance. negative: Calf tenderness, Esdras's sign/cords Neurologic/Psychiatric: positive: Oriented x3, Motor nml, Sensation nml, Mood/affect nml. negative: Weakness, Sensory loss, Facial droop, Slurred/abnml speech, Depressed mood/affect - LABS Result Diagrams: 12/28/19 04:20 12/28/19 04:20 - FOLLOW UP Follow Up: - f/u in Dr. Magdaleno clinic in one week for suture removal - keep sutures clean and scab free. Shower ok. Do not scrub the wounds. Keep moist with vaseline. - Puree diet for at least four weeks. - Expect full resolution of left marginal mandibular branch weakness - continue Nystatin mouthrinse after d/c for five days - Cefdnir for five days - f/u cultures - f/u biopsy results - postoperative CT in office. you may followup your PCP in one to two weeks, followup Dr. Magdaleno in one week. Should your symptoms return or worsen, you may present ER or call 911 for help. - TIME SPENT Time Spent in Discharge (Minutes): 30"
== END 2019-12-28 11:55 | disposition home or self-care (01) | DRG 131 ==
LOC: MS2 18:08
PROVIDERS: ADMIT Internal Medicine; ATTEND Nurse Practitioner Gerontology
PROC: 0NSTXZZ Reposition Right Mandible, External Approach (ICD-10-PCS; 2019-12-19)
PROC: 0CP Mouth and Throat, Removal (ICD-10-PCS; 2019-12-19)
PROC: 0J910ZZ Drainage of Face Subcutaneous Tissue and Fascia, Open Approach (ICD-10-PCS; 2019-12-19)
PROC: 0NBT0ZX Excision of Right Mandible, Open Approach, Diagnostic (ICD-10-PCS; 2019-12-19)
PROC: 0CP Mouth and Throat, Removal (ICD-10-PCS; 2019-12-19)
PROC: 0WP Anatomical Regions, General, Removal (ICD-10-PCS; 2019-12-26)
PROC: 0NBT0ZX Excision of Right Mandible, Open Approach, Diagnostic (ICD-10-PCS; 2019-12-26)
PROC: 0NST04Z Reposition Right Mandible with Internal Fixation Device, Open Approach (ICD-10-PCS; principal; 2019-12-26 07:30)
DX: K12.2 Cellulitis and abscess of mouth (principal); J44.1 Chronic obstructive pulmonary disease with (acute) exacerbation; M84.68XA Pathological fracture in other disease, other site, initial encounter for fracture; M87.9 Osteonecrosis, unspecified; B37.0 Candidal stomatitis; M27.62 Post-osseointegration biological failure of dental implant; M27.2 Inflammatory conditions of jaws; B95.4 Other streptococcus as the cause of diseases classified elsewhere; E11.22 Type 2 diabetes mellitus with diabetic chronic kidney disease; N18.9 Chronic kidney disease, unspecified; E11.42 Type 2 diabetes mellitus with diabetic polyneuropathy; R94.31 Abnormal electrocardiogram [ECG] [EKG]; E78.00 Pure hypercholesterolemia, unspecified; E11.649 Type 2 diabetes mellitus with hypoglycemia without coma; E11.65 Type 2 diabetes mellitus with hyperglycemia; T38.0X5A Adverse effect of glucocorticoids and synthetic analogues, initial encounter; Y92.230 Patient room in hospital as the place of occurrence of the external cause; K59.00 Constipation, unspecified; E86.0 Dehydration; K21.9 Gastro-esophageal reflux disease without esophagitis; F32.9 Major depressive disorder, single episode, unspecified; M06.9 Rheumatoid arthritis, unspecified; R32 Unspecified urinary incontinence; R01.1 Cardiac murmur, unspecified; Z91.81 History of falling; Z79.4 Long term (current) use of insulin; Z79.51 Long term (current) use of inhaled steroids; Z79.82 Long term (current) use of aspirin; Z79.899 Other long term (current) drug therapy; Z96.659 Presence of unspecified artificial knee joint; Z87.891 Personal history of nicotine dependence
CPT/HCPCS: 36415; 70486; 71045; 80048; 81599; 83036; 83735; 84100; 85025; 85027; 87493; 93005; 93306; 94640; 94664; 94761; 97161; 97166; 97530; A6250; A9270; C1713; J0131; J0330; J1170; J1650; J1815; J7120; J7512; J7626; 87070; 87205

== ENCOUNTER 2020-03-20 13:53 | Outpatient (CLI) | payer MEDICARE, OTHER | END 2020-03-20 13:54 | disposition critical access hospital (66) | LOC: EMS 13:53 | PROVIDERS: ATTEND Surgery | DX: M25.511 Pain in right shoulder (principal); Z91.81 History of falling | CPT/HCPCS: A0425; A0429 ==

== ENCOUNTER 2020-03-20 14:33 | Emergency (ER) | payer MEDICARE, OTHER ==
--- NOTE | 2020-03-20 15:07 | ED Physician Documentation ---
History of Present Illness - Stated complaint Stated Complaint: FALL - Chief complaint Chief Complaint: Ext Problem - History obtained from History obtained from: Patient, Family - History of Present Illness Timing: Prior to arrival - Additonal information Additional information: 84-year-old female presents to the emergency department with chief complaint of right shoulder and upper arm pain. The events of her presentation are unclear to me. She reports that she was on the commode having a bowel movement. At some point she may have syncopized and fell. Her heard a thud and came into the bathroom. He picked her up and re-sat her on the commode but then describes her as being disoriented. He then describes as about a 15-second episode where her entire body shook bilaterally arms and legs. At the time of exam in the emergency department she is alert, very pleasant. She has no obvious focal neuro deficits. However she is amnesic to the events after she syncopized. At present she denies chest pain or dyspnea. She does have a complex medical history that includes diabetes as well as recent surgery for a broken mandible. Review of Systems Constitutional: denies: Fever, Chills Eyes: denies: Loss of vision, Decreased vision Cardiac: denies: Chest pain / pressure, Palpitations Respiratory: denies: Dyspnea GI: denies: Abdominal Pain, Abdominal Swelling, Nausea, Vomiting, Constipation : denies: Dysuria Neurologic: reports: Syncope, Seizure (possible), LOC. 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 : Incontinence, Renal insuffiency HEENT: Dental implants Psych: Depression Musculoskeletal: Rheumatoid arthritis Derm: None - Past Surgical History Past Surgical History: Yes Ortho: Knee replacement /SNOWBOARD INSTRUCTOR: Hysterectomy, Oophrectomy HEENT: Cataracts - Present Medications Home Medications: Ambulatory Orders Medication Instructions Recorded Confirmed Albuterol Sulfate [Proair Hfa 1 puffs INH Q4H PRN 12/14/19 12/14/19 Inhaler] Aspirin [Aspirin EC] 81 mg PO DAILY 12/14/19 12/14/19 Atorvastatin [Lipitor] 40 mg PO DAILY 12/14/19 12/14/19 Fluticasone/Salmeterol [Advair 1 puffs INH BID 12/14/19 12/14/19 250-50 Diskus] Gabapentin 900 mg PO DAILY PM 12/14/19 12/14/19 Insulin Aspart [NovoLOG] 10 units INJ TIDWM 12/14/19 12/14/19 Insulin Glargine [Lantus Solostar] 28 units INJ DAILY 12/14/19 12/14/19 Omeprazole 20 mg PO DAILY 12/14/19 12/14/19 Telmisartan [Micardis] 10 mg PO DAILY 12/14/19 12/14/19 Tiotropium [place] [Spiriva 4 gm IH DAILY 12/14/19 12/14/19 Respimat] Tolterodine Tartrate [Detrol LA] 2 mg PO DAILY 12/14/19 12/14/19 Acetaminophen [Tylenol] 650 mg PO Q6HR PRN #15 tablet 12/28/19 Cefdinir 300 mg PO BID 5 Days #10 capsule 12/28/19 Nystatin 100,000 unit PO QID 5 Days #100 ml 12/28/19 - Allergies Allergies/Adverse Reactions: Allergies Allergy/AdvReac Type Severity Reaction Status Date / Time lisinopril Allergy Unknown Verified 12/14/19 20:06 mushroom Allergy Rash Verified 12/15/19 17:51 Penicillins Allergy Unknown Verified 12/14/19 20:06 shellfish derived Allergy Hives Verified 12/14/19 20:06 - Social History Does the pt smoke?: No Smoking Status: Never smoker Does the pt drink ETOH?: No Does the pt have substance abuse?: No - Immunizations Immunizations are current?: Yes - POLST Patient has POLST: No POLST Status: DNR (Advanced Directive with . DNR/I) PD ED PE EXPANDED - General General: Alert, No acute distress, Well developed/nourished - HEENT HEENT: No: Atraumatic, Head injury, PERRL, Gaze palsy, Ears normal - Eyes Eyes: PERRL - Neck Neck: Supple w/out meningeal sx. No: Adenopathy - Cardiac Cardiac: Regular Rate, Radial strong equal, Femoral strong equal, Pedal strong equal - Respiratory Respiratory: Clear to ausultation cheryl. No: Distress, Labored - Abdomen Abdomen: Normal Bowel sounds. No: Tender to palpation - Extremities Extremities: Normal, Right arm (tenderness proximal humerus withotu ecchymosis or swelling. Reduced ROM secondary to pain of shoulder; limits exam. 2+ distal radial pulse) - Neuro Neuro: Alert and Oriented X 3, CNII-XII intact. No: Confused, Disoriented - GCS Eye Opening: Spontaneous Motor: Obeys Commands Verbal: Oriented Total: 15 Results - Vitals Vitals: Vital Signs - 24 hr 03/20/20 03/20/20 14:34 16:23 Temperature 36.8 C 36.5 C Heart Rate 79 83 Respiratory 18 20 Rate Blood Pressure 99/75 100/64 O2 Saturation 98 92 Oxygen O2 Source Room air - EKG (time done) 1514 Rate: Rate (enter#) (77) Rhythm: NSR [place]: Normal Intervals: Normal SD, Prolonged QT QRS: Normal Ischemia: Normal ST segments Computer interpretation: Agree with computer - Labs Labs: Laboratory Tests 03/20/20 03/20/20 03/20/20 15:39 15:39 15:39 WBC 10.6 RBC 4.82 Hgb 15.0 Hct 44.1 MCV 91.5 MCH 31.1 H MCHC 34.0 RDW 12.6 Plt Count 215 MPV 11.0 H Neut # (Auto) 8.7 H Lymph # (Auto) 1.1 L [place] # (Auto) 0.7 Eos # (Auto) 0.0 Baso # (Auto) 0.0 Absolute Nucleated RBC 0.00 Nucleated RBC % 0.0 Sodium 134 L Potassium 3.9 Chloride 97 L Carbon Dioxide 23 Anion Gap 14.0 H BUN 36 H Creatinine 1.8 H Estimated GFR (MDRD) 27 L Glucose 267 H Calcium 10.0 Total Bilirubin 1.1 H AST 29 ALT 25 Alkaline Phosphatase 113 Troponin I High Sens 5.7 Total Protein 8.0 Albumin 4.5 Globulin 3.5 Albumin/Globulin Ratio 1.3 Lipase 22 - Rads (name of study) CT head Radiology: Final report received right shoulder Radiology: Final report received (No acute osseous abnormality. Moderate degenerative change of the glenohumeral and acromial clavicular joints) right humerus: Radiology: Final report received (No fracture.) PD MEDICAL DECISION MAKING - ED course Complexity details: reviewed results, re-evaluated patient, d/w patient, d/w family ED course: 84-year-old female presents to the emergency department with right arm and shoulder pain after a fall from the commode this morning. It sounds like she was having a bowel movement and may have syncopized. I suspect that she had a vasovagal event. Her reports that she was somewhat slow to respond when he found her in the bathroom and as he picked her up to put her on the commode she began to shake uncontrollably. - Head CT here is without any acute focal findings. Neurologically she is intact without focal deficits. - X-ray of the shoulder and humerus shows no fracture dislocation. She does have noted osteoarthritis in these joints. I feel like the shoulder pain is likely a contusion or exacerbation of her baseline arthritis Patient will be given an arm sling for comfort and referred to orthopedics for follow-up. She is advised to try and limit the use of the arm sling to prevent frozen or encapsulated shoulder joint. - EKG is non ischemic; negative troponin. no c/o CP or dyspnea; doubt acs - Labs today show Cr 1.8. New onset renal insufficiency. Dehydration may be contributing to her syncopal event. pt given 2 liters of crystalloid. Pt advised to closely f/u with pcp for cr recheck in the future. Pt also advised to avoid NSAID use at home - Emergent and worrisome return precautions discussed Departure - Departure Clinical Impression: Renal insufficiency, Syncope and collapse Left shoulder pain Qualifiers: Chronicity: acute Qualified Code(s): M25.512 - Pain in left shoulder Instructions: ED Insufficiency Renal Comments: The x-ray of your shoulder and humerus do not show any broken bones. It does show that you have some arthritis which I think has been worsened after the fall. Your labs show today that you have developed some renal insufficiency and are a little bit dehydrated. Your creatinine today is 1.8. We have given you 2 L of IV fluids in the emergency department but it is important that you schedule follow-up with your primary care doctor to have your kidney function repeated in the next week. Please stop taking NSAID medication like ibuprofen or naproxen. This can worsen kidney damage. For pain please use ice or take Tylenol [id number] I think that you were straining during a bowel movement and fainted due to what is called a vasovagal event. The CT of your head was normal and did not show any signs of bruising or bleeding Please return to the emergency department for follow-up if you develop suddenly severe belly pain, have a headache, stop making urine normally or have any difficulty breathing
[2020-03-20 15:45] LABS: BASOPHILS % (AUTO) 0.2 %; EOSINOPHILS % (AUTO) 0.1 %; LYMPHOCYTES # (AUTO) 1.1 10^3/uL (1.5-3.5); LYMPHOCYTES % (AUTO) 9.9 %; MEAN CORPUSCULAR HEMOGLOBIN 31.1 pg (27.0-31.0); MEAN CORPUSCULAR VOLUME 91.5 fL (81.0-99.0); MONOCYTES # (AUTO) 0.7 10^3/uL (0.0-1.0); MONOCYTES % (AUTO) 6.4 %; NEUTROPHILS # (AUTO) 8.7 10^3/uL (1.5-6.6); NEUTROPHILS % (AUTO) 82.6 %; PLT - PLATELET COUNT 215 10^3/uL (130-450); RED BLOOD COUNT 4.82 10^6/uL (4.20-5.40); RED CELL DISTRIBUTION WIDTH 12.6 % (12.0-15.0); WHITE BLOOD COUNT 10.6 x10^3/uL (4.8-10.8)
--- NOTE | 2020-03-20 15:45 | XRAY Report ---
PROCEDURE: Humerus RT INDICATIONS: fall pain TECHNIQUE: 2 views of the humerus were acquired. COMPARISON: Same day right shoulder radiographs. CXR 12/18/2019. FINDINGS: Bones: No fractures or dislocations. No suspicious bony lesions. Soft tissues: No suspicious soft tissue calcifications. IMPRESSION: No fracture of the right humerus. Reviewed by: Jesse Fitzgerald MD on 03/20/2020 3:44 PM PDT Approved by: Jesse Fitzgerald MD on 03/20/2020 3:44 PM PDT Station ID: [id number]
--- NOTE | 2020-03-20 15:46 | XRAY Report ---
PROCEDURE: Shoulder 3 View RT INDICATIONS: fall pain TECHNIQUE: 3 views of the shoulder were acquired. COMPARISON: Same day right humerus radiographs. FINDINGS: Bones: No fractures or dislocations. No suspicious bony lesions. Visualized ribs appear intact. Mo derate degenerative change of the glenohumeral and acromial collicular joints. Soft tissues: No suspicious soft tissue calcifications. IMPRESSION: No acute osseous abnormality. Reviewed by: Jesse Fitzgerald MD on 03/20/2020 3:45 PM PDT Approved by: Jesse Fitzgerald MD on 03/20/2020 3:45 PM PDT Station ID: [id number]
--- NOTE | 2020-03-20 15:54 | CT Report ---
PROCEDURE: HEAD WO INDICATIONS: syncope ? seizure TECHNIQUE: Noncontrast 4.5 mm thick angled axial sections acquired from the foramen magnum to the vertex. For r adiation dose reduction, the following was used: automated exposure control, adjustment of mA and/or kV according to patient size. COMPARISON: None. FINDINGS: Image quality: Excellent. CSF spaces: Basal cisterns are patent. No extra-axial fluid collections. The ventricles are symmet vasquez in size and shape. Brain: No intracranial bleeds or masses. There is cerebral volume loss for age, with resultant vent ricular and sulcal prominence. There are periventricular and deep white matter chronic small vessel ischemic changes. There is intracranial internal carotid artery atherosclerosis. Skull and face: Calvarium and visualized facial bones appear intact, without suspicious lesions. Sinuses: Visualized sinuses and mastoids are clear. IMPRESSION: 1. No CT evidence of acute intracranial pathology. 2. Age-appropriate atrophy and mild periventricular and deep white matter chronic small vessel ischem ic changes. Reviewed by: Karthik Hardin MD on 03/20/2020 3:53 PM PDT Approved by: Karthik Hardin MD on 03/20/2020 3:53 PM PDT Station ID: [id number]
[2020-03-20 16:09] LABS: ALBUMIN 4.5 g/dL (3.2-5.5); ALBUMIN/GLOBULIN RATIO 1.3 (1.0-2.2); BILIRUBIN,TOTAL 1.1 mg/dL (0.2-1.0); CREATININE 1.8 mg/dL (0.4-1.0)
[2020-03-20] MEDS ORDERED: IBUPROFEN 600 MG TABLET PO STA (16:12)
[2020-03-20] MEDS ORDERED: SODIUM CHLORIDE 0.9% 1,000 ML IV STA ×2 (16:17)
[2020-03-20] MEDS ORDERED: ACETAMINOPHEN 325 MG TABLET PO STA (16:20)
[2020-03-20 19:01] VITALS: BP 169/79
== END 2020-03-20 19:26 | disposition home or self-care (01) ==
LOC: EDUNIT# → ED 14:33
DX: R55 Syncope and collapse (principal); N28.9 Disorder of kidney and ureter, unspecified; E86.0 Dehydration; M19.011 Primary osteoarthritis, right shoulder; M79.621 Pain in right upper arm; W18.11XA Fall from or off toilet without subsequent striking against object, initial encounter; Y93.E8 Activity, other personal hygiene; Y92.002 Bathroom of unspecified non-institutional (private) residence as the place of occurrence of the external cause; I45.81 Long QT syndrome; E11.42 Type 2 diabetes mellitus with diabetic polyneuropathy; Z79.4 Long term (current) use of insulin; M06.9 Rheumatoid arthritis, unspecified; Z79.82 Long term (current) use of aspirin; Z66 Do not resuscitate
CPT/HCPCS: 36415; 70450; 73030; 73060; 80053; 83690; 84484; 85025; 93005; 96360; 96361; 99284; A9270

== ENCOUNTER 2022-01-04 09:26 | Outpatient (CLI) | payer MEDICARE, OTHER | END 2022-01-04 09:27 | disposition short-term general hospital (02) | LOC: EMS 09:26 | DX: R41.0 Disorientation, unspecified (principal); R46.89 Other symptoms and signs involving appearance and behavior | CPT/HCPCS: A0425; A0429 ==

== ENCOUNTER 2022-09-08 00:51 | Outpatient (CLI) | payer MEDICARE, OTHER | END 2022-09-08 00:52 | disposition short-term general hospital (02) | LOC: EMS 00:51 | DX: R07.9 Chest pain, unspecified (principal) | CPT/HCPCS: A0425; A0429 ==

== ENCOUNTER 2023-05-29 13:57 | Outpatient (CLI) | payer MEDICARE, OTHER | END 2023-05-29 13:58 | disposition EMS.NT | LOC: EMS 13:57 | DX: M79.605 Pain in left leg (principal) ==

== ENCOUNTER 2023-06-06 09:56 | Outpatient (CLI) | payer MEDICARE, OTHER | END 2023-06-06 09:57 | disposition EMS.NT | LOC: EMS 09:56 | DX: R45.4 Irritability and anger (principal); R45.6 Violent behavior ==

== ENCOUNTER 2023-06-07 21:19 | Outpatient (CLI) | payer MEDICARE, OTHER | END 2023-06-07 21:20 | disposition EMS.NT | LOC: EMS 21:19 | DX: F03.90 Unspecified dementia, unspecified severity, without behavioral disturbance, psychotic disturbance, mood disturbance, and anxiety (principal); R45.1 Restlessness and agitation; R46.89 Other symptoms and signs involving appearance and behavior ==

== ENCOUNTER 2023-06-15 05:37 | Outpatient (CLI) | payer MEDICARE, OTHER | END 2023-06-15 23:59 | disposition short-term general hospital (02) | LOC: EMS 05:37 | DX: R51.9 Headache, unspecified (principal); M54.2 Cervicalgia; M25.551 Pain in right hip; M25.552 Pain in left hip; M25.511 Pain in right shoulder; W01.198A Fall on same level from slipping, tripping and stumbling with subsequent striking against other object, initial encounter; Y92.002 Bathroom of unspecified non-institutional (private) residence as the place of occurrence of the external cause | CPT/HCPCS: A0425; A0429 ==

== ENCOUNTER 2023-06-18 03:00 | Outpatient (CLI) | payer MEDICARE, OTHER | END 2023-06-18 23:59 | disposition short-term general hospital (02) | LOC: EMS 03:00 | DX: R06.89 Other abnormalities of breathing (principal); R40.0 Somnolence | CPT/HCPCS: A0425; A0429 ==

== ENCOUNTER 2023-06-22 18:06 | Outpatient (CLI) | payer MEDICARE, OTHER | END 2023-06-22 18:07 | disposition short-term general hospital (02) | LOC: EMS 18:06 | DX: R45.89 Other symptoms and signs involving emotional state (principal); R45.1 Restlessness and agitation | CPT/HCPCS: A0425; A0429 ==

== ENCOUNTER 2023-07-26 00:56 | Outpatient (CLI) | payer MEDICARE, OTHER | END 2023-07-26 00:57 | disposition EMS.NT | LOC: EMS 00:56 | DX: F03.911 Unspecified dementia, unspecified severity, with agitation (principal) ==

== ENCOUNTER 2023-07-27 00:01 | Outpatient (CLI) | payer MEDICARE, OTHER | END 2023-07-27 23:59 | disposition short-term general hospital (02) | LOC: EMS 00:01 | DX: R07.9 Chest pain, unspecified (principal); M54.50 Low back pain, unspecified; I10 Essential (primary) hypertension; Z99.81 Dependence on supplemental oxygen | CPT/HCPCS: A0425; A0429 ==

== ENCOUNTER 2023-08-05 13:54 | Outpatient (CLI) | payer MEDICARE, OTHER | END 2023-08-05 13:55 | disposition short-term general hospital (02) | LOC: EMS 13:54 | DX: R41.82 Altered mental status, unspecified (principal); R46.89 Other symptoms and signs involving appearance and behavior; R45.89 Other symptoms and signs involving emotional state | CPT/HCPCS: A0425; A0429 ==

== ENCOUNTER 2023-09-10 10:53 | Outpatient (CLI) | payer MEDICARE, OTHER | END 2023-09-10 10:54 | disposition critical access hospital (66) | LOC: EMS 10:53 | DX: M25.561 Pain in right knee (principal); M25.521 Pain in right elbow; R41.0 Disorientation, unspecified; R45.1 Restlessness and agitation; W19.XXXA Unspecified fall, initial encounter; Y92.008 Other place in unspecified non-institutional (private) residence as the place of occurrence of the external cause | CPT/HCPCS: A0425; A0429 ==

== ENCOUNTER 2023-09-10 11:25 | Emergency (ER) | payer MEDICARE, OTHER ==
[2023-09-10] MEDS ORDERED: QUEtiapine 25 MG TABLET PO STA (11:41)
--- NOTE | 2023-09-10 11:46 | ED Physician Documentation ---
History of Present Illness - Stated complaint Stated Complaint: FALL - Chief complaint Chief Complaint: General - Additonal information Additional information: 88-year-old female with advanced dementia and generalized arthritis multiple joint surgeries comes to the emergency department today after experiencing a ground-level fall. She is brought in via EMS with the support of her who also has dementia and Parkinson's. Patient apparently was up all night and has been having issues with sundowning at home has been trying to leave the house all day she attempted to get out of the house her who has unstable balance attempted to grab her from behind the both fell forward she fell onto her right side hitting her right forehead. Patient is tearful and anxious upon arrival difficult gathering history complains of generalized pain everywhere per this is baseline for her. She has a mild hematoma to the right forehead without any open abrasions or lacerations. Denies use of blood thinners. 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 : Incontinence, Renal insuffiency HEENT: Dental implants Psych: Depression Musculoskeletal: Rheumatoid arthritis Derm: None - Past Surgical History Past Surgical History: Yes Ortho: Knee replacement /PANEL WIRER: Hysterectomy, Oophrectomy HEENT: Cataracts - Present Medications Home Medications: Ambulatory Orders Medication Instructions Recorded Confirmed Albuterol Sulfate [Proair Hfa 1 puffs INH Q4H PRN 12/14/19 12/14/19 Inhaler] Aspirin [Aspirin EC] 81 mg PO DAILY 12/14/19 12/14/19 Atorvastatin [Lipitor] 40 mg PO DAILY 12/14/19 12/14/19 Fluticasone/Salmeterol [Advair 1 puffs INH BID 12/14/19 12/14/19 250-50 Diskus] Gabapentin 900 mg PO DAILY PM 12/14/19 12/14/19 Insulin Aspart [NovoLOG] 10 units INJ TIDWM 12/14/19 12/14/19 Insulin Glargine [Lantus Solostar] 28 units INJ DAILY 12/14/19 12/14/19 Omeprazole 20 mg PO DAILY 12/14/19 12/14/19 Telmisartan [Micardis] 10 mg PO DAILY 12/14/19 12/14/19 Tiotropium [place] [Spiriva 4 gm IH DAILY 12/14/19 12/14/19 Respimat] Tolterodine Tartrate [Detrol LA] 2 mg PO DAILY 12/14/19 12/14/19 Acetaminophen [Tylenol] 650 mg PO Q6HR PRN #15 tablet 12/28/19 Cefdinir 300 mg PO BID 5 Days #10 capsule 12/28/19 Nystatin 100,000 unit PO QID 5 Days #100 ml 12/28/19 Quetiapine Fumarate [Seroquel] 50 mg PO QPM #60 tablet 09/10/23 - Allergies Allergies/Adverse Reactions: Allergies Allergy/AdvReac Type Severity Reaction Status Date / Time lisinopril Allergy Unknown Verified 09/10/23 11:34 mushroom Allergy Rash Verified 09/10/23 11:34 Penicillins Allergy Unknown Verified 09/10/23 11:34 shellfish derived Allergy Hives Verified 09/10/23 11:34 - Social History Does the pt smoke?: No Smoking Status: Never smoker Does the pt drink ETOH?: No Does the pt have substance abuse?: No - Immunizations Immunizations are current?: Yes - POLST Patient has POLST: No POLST Status: DNR (Advanced Directive with . DNR/I) PD ED PE NORMAL - Vitals Vital signs reviewed: Yes - General General: Well developed/nourished, Other (in distress, tearful and anxious, AOx2, this is pt's baseline) - HEENT HEENT: PERRL, EOMI, Moist mucous membranes, Other (right 3cm forehead hematoma) - Neck Neck: No bony TTP, No JVD - Cardiac Cardiac: No murmur, Strong equal pulses - Respiratory Respiratory: Clear bilaterally (diminished breath sounds), Other (oxygen dependent at home due to COPD. ) - Abdomen Abdomen: Normal bowel sounds, Soft, Non tender, Non distended - Back Back: No spinal TTP - Derm Derm: Other (no abrasions or lacerations) - Extremities Extremities: Other (old bruising to left knee with mild swelling. Full ROM to all extremities, no crepitus, no pin point tenderness to one specific area, c/o generalized chronic pain) - Neuro Neuro: No motor deficit, No sensory deficit, Normal speech Eye Opening: Spontaneous Motor: Obeys Commands - Psych Psych: Normal mood Results - Vitals Vitals: Vital Signs - 24 hr 09/10/23 09/10/23 11:28 16:34 Temperature 36.4 C L Heart Rate 78 75 Respiratory 20 20 Rate Blood Pressure 164/122 H 154/82 H O2 Saturation 94 97 Oxygen O2 Source Room air - Labs Labs: Laboratory Tests 09/10/23 09/10/23 09/10/23 12:23 12:23 15:32 WBC 6.3 RBC 4.51 Hgb 12.8 Hct 40.9 MCV 90.7 MCH 28.4 MCHC 31.3 L RDW 14.0 Plt Count 210 MPV 11.2 H Neut # (Auto) 4.5 Lymph # (Auto) 1.4 L [place] # (Auto) 0.4 Eos # (Auto) 0.0 Baso # (Auto) 0.0 Absolute Nucleated RBC 0.00 Nucleated RBC % 0.0 Sodium 142 Potassium 3.7 Chloride 104 Carbon Dioxide 24 Anion Gap 14.0 H BUN 22 H Creatinine 1.0 Estimated GFR (MDRD) 52 L Glucose 152 H Calcium 9.8 Total Bilirubin 0.7 AST 16 ALT 10 Alkaline Phosphatase 71 Total Protein 6.9 Albumin 4.1 Globulin 2.8 Albumin/Globulin Ratio 1.5 Urine Color YELLOW Urine Clarity CLEAR Urine pH 6.0 Ur Specific [place] 1.010 Urine Protein NEGATIVE Urine Glucose (UA) NEGATIVE Urine Ketones NEGATIVE Urine Occult Blood NEGATIVE Urine Nitrite NEGATIVE Urine Bilirubin NEGATIVE Urine Urobilinogen 0.2 (NORMAL) Ur Leukocyte Esterase NEGATIVE Ur Microscopic Review NOT INDICATED Urine Culture Comments NOT INDICATED - Rads (name of study) head neck ct w/o con Relevant Findings:: Final report received, EMP independent interpretation of test (No intracranial hemorrhages or abnormal findings. C spine also found to have only chronic arthritic findings @C1) PD Medical Decision Making - ED course ED course: 88-year-old female here with concerns of advancing dementia as well as a ground- level fall. I had a lengthy conversation with the patient's outside of the room and he is quite tearful and concerned about continuing to care for his as her dementia advances and he has advancing Parkinson's. He said lately she has not been sleeping at night she got maybe a total of 3 to 4 hours of sleep last night because she has been attempting to leave and appears to have some delusions and paranoia. They had 2 elderly daughters that live with them and can help sometimes but he says they tend to "egg her on" which causes patient to be more combative. He is concerned about his limitations caring for her as her dementia advances. Head CT does not reveal any acute intracranial abnormalities no intracranial hemorrhages. Age-related microvascular arthrosclerotic changes Neck CT: Does not reveal any acute trauma found. There is severe degenerative changes at C1 CBC does not reveal any acute anemia or leukocytosis, CMP shows overall normal kidney function, blood glucose 152, potassium 3.7 Social work came to bedside to discuss with patient as well as patient's and family the complexities of dealing with the patient at home. Unfortunately there is no indication at this time to keep patient here and admit her here as she is very medically stable. Patient responded well to 50 mg p.o. Seroquel and seemed to be a lot more calm and cooperative and a lot less emotional outburst. Family is willing to take patient home with the addition of Seroquel to her medication regimen. They have been informed that she can take 1 pill 1 hour before bedtime and if still awake or agitated okay to take one more pill. This is on patient's discharge paperwork as well as verbalized with patient's who agrees to the plan. They will be following up with primary care provider for further evaluation of referral to memory care facility. They were given return precautions and are safe for discharge at this time. Departure - Departure Disposition: 01 Home, Self Care Clinical Impression: Fall from ground level Dementia Qualifiers: Dementia type: unspecified type Dementia severity: moderate Dementia behavioral or psychological symptom: with mood disturbance Qualified Code(s): F03.B3 - Unspecified dementia, moderate, with mood disturbance Condition: Good Instructions: ED Confusion, ED Dementia Caregiver Support Prescriptions: Quetiapine Fumarate [Seroquel] 50 mg PO QPM #60 tablet Comments: Thank you for trusting us with your care we have completed a head CT and cervical spine CT which were both unremarkable. homeworker came by to give you some additional resources to help with the difficulties that you are having right now home. I have sent a prescription of Seroquel to [facility] in [place] you can take one pill 1 hour before going to bed if after 1 hour and patient is still awake or seems to be agitated you can give her 1 more pill. If you are noticing that you are consistently giving her 2 pills every night you can go ahead and start with giving her 2 pills (100 mg) nightly before bed. Follow-up with your primary care provider about a possible referral/admission to a memory care facility for additional support. Please come back to ED if Kezia is having worsening dementia symptoms and is becoming unsafe to herself or family or any other concerning symptoms. Forms: PCP List
[2023-09-10 12:30] LABS: BASOPHILS % (AUTO) 0.3 %; EOSINOPHILS % (AUTO) 0.3 %; HCT - HEMATOCRIT 40.9 % (37.0-47.0); HGB - HEMOGLOBIN 12.8 g/dL (12.0-16.0); LYMPHOCYTES # (AUTO) 1.4 10^3/uL (1.5-3.5); LYMPHOCYTES % (AUTO) 21.4 %; MEAN CORPUSCULAR HEMOGLOBIN 28.4 pg (27.0-31.0); MEAN CORPUSCULAR HGB CONC 31.3 g/dL (32.0-36.0); MEAN CORPUSCULAR VOLUME 90.7 fL (81.0-99.0); MEAN PLATELET VOLUME 11.2 fL (7.9-10.8); MONOCYTES # (AUTO) 0.4 10^3/uL (0.0-1.0); MONOCYTES % (AUTO) 6.7 %; NEUTROPHILS # (AUTO) 4.5 10^3/uL (1.5-6.6); NEUTROPHILS % (AUTO) 71.1 %; PLT - PLATELET COUNT 210 10^3/uL (130-450); RED BLOOD COUNT 4.51 10^6/uL (4.20-5.40); WHITE BLOOD COUNT 6.3 x10^3/uL (4.8-10.8)
[2023-09-10 12:59] LABS: ALBUMIN 4.1 g/dL (3.2-5.5); ALBUMIN/GLOBULIN RATIO 1.5 (1.0-2.2); BILIRUBIN,TOTAL 0.7 mg/dL (0.2-1.0); CALCIUM 9.8 mg/dL (8.5-10.3); POTASSIUM 3.7 mmol/L (3.5-4.5); TOTAL PROTEIN 6.9 g/dL (6.4-8.9)
--- NOTE | 2023-09-10 13:08 | CT Report ---
PROCEDURE: Cervical Spine WO INDICATIONS: GLF, head trauma TECHNIQUE: Noncontrast 3 mm thick sections acquired from the skull base to the T4 level. Sagittal and coronal r eformats were then constructed. For radiation dose reduction, the following was used: automated exp osure control, adjustment of mA and/or kV according to patient size. COMPARISON: None. FINDINGS: Image quality: Reduced by patient motion during image acquisition.. Bones: No fractures or dislocations. Visualized superior ribs are intact. There is severe degenera tive change along the cervical spine including at the C1-dens articulation. No acute trauma seen. Soft tissues: Prevertebral soft tissues are normal in thickness. No paravertebral hematomas. No ap ical pneumothoraces. IMPRESSION: No acute trauma found. Severe degenerative change including at the C1-dens articulation. No traumatic malalignment identified. Reviewed by: Gunner Richards MD on 09/10/2023 1:07 PM PST Approved by: Gunner Richards MD on 09/10/2023 1:07 PM PST Station ID: [id number]
--- NOTE | 2023-09-10 13:13 | CT Report ---
PROCEDURE: Head WO INDICATIONS: GLF, head trauma TECHNIQUE: Noncontrast 4.5 mm thick angled axial sections acquired from the foramen magnum to the vertex. For r adiation dose reduction, the following was used: automated exposure control, adjustment of mA and/or kV according to patient size. COMPARISON: None. FINDINGS: Image quality: Moderately degraded by patient motion during image acquisition.. CSF spaces: Basal cisterns are patent. No extra-axial fluid collections. Ventricles are normal in size and shape. Brain: No midline shift. No intracranial masses or hemorrhage. [place]-white matter interface is norm al. Skull and face: Calvarium and visualized facial bones are intact, without suspicious lesions. Sinuses: Visualized sinuses and mastoids are clear. IMPRESSION: Age-related moderate microvascular atherosclerotic change in the deep white matter of each hemisphere but no trauma found. Reviewed by: Gunner Richards MD on 09/10/2023 1:11 PM PST Approved by: Gunner Richards MD on 09/10/2023 1:11 PM PST Station ID: [id number]
[2023-09-10 16:00] LABS: GLUCOSE, URINE (UA) NEGATIVE (NEGATIVE); KETONES,URINE (UA) NEGATIVE (NEGATIVE); LEUKOCYTE ESTERASE, URINE NEGATIVE (NEGATIVE); NITRITE,URINE NEGATIVE (NEGATIVE); OCCULT BLOOD,URINE NEGATIVE (NEGATIVE); PROTEIN,URINE NEGATIVE (NEGATIVE); UROBILINOGEN,URINE 0.2 (NORMAL) E.U./dL (NORMAL)
[2023-09-10 16:05] LABS: BILIRUBIN,URINE NEGATIVE (NEGATIVE); CLARITY,URINE CLEAR (CLEAR)
[2023-09-10 16:40] VITALS: BP 154/82; O2SAT 97
== END 2023-09-10 16:43 | disposition home or self-care (01) ==
LOC: EDUNIT# → ED 11:25
DX: F03.B3 Unspecified dementia, moderate, with mood disturbance (principal); S00.83XA Contusion of other part of head, initial encounter; W18.39XA Other fall on same level, initial encounter; Y92.009 Unspecified place in unspecified non-institutional (private) residence as the place of occurrence of the external cause; Z66 Do not resuscitate
CPT/HCPCS: 36415; 70450; 72125; 80053; 81003; 85025; 99284; A9270; 81001; 87086

== ENCOUNTER 2023-10-26 16:35 | Outpatient (CLI) | payer MEDICARE, OTHER | END 2023-10-26 23:59 | disposition critical access hospital (66) | LOC: EMS 16:35 | DX: M54.9 Dorsalgia, unspecified (principal); W01.0XXA Fall on same level from slipping, tripping and stumbling without subsequent striking against object, initial encounter; Y92.89 Other specified places as the place of occurrence of the external cause; R45.1 Restlessness and agitation | CPT/HCPCS: A0425; A0429 ==

== ENCOUNTER 2023-10-26 17:11 | Emergency (ER) | payer MEDICARE, OTHER ==
--- NOTE | 2023-10-26 18:35 | ED Physician Documentation ---
History of Present Illness - Stated complaint Stated Complaint: GLF - Chief complaint Chief Complaint: General - Additonal information Additional information: 88-year-old female with dementia presents to emergency department for ground- level fall via EMS. Patient is here with her they have been here before for concerns with managing patient's care at home. Apparently she slipped and fell on the grass today and fell onto her right side. Patient says that she has generalized bodyaches but nothing out of the ordinary no loss of consciousness she not hit her head. She is able to ambulate without any difficulty no limping and does not complain of any localized pain to any area on her body. Patient is quite agitated when asked the if she is taking her Seroquel at home he says no because the patient refuses to take any medications. 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: None : Incontinence, Renal insuffiency HEENT: Dental implants Psych: Depression Musculoskeletal: Osteoarthritis, Rheumatoid arthritis Derm: None - Past Surgical History Past Surgical History: Yes Ortho: Knee replacement /MACERATOR OPERATOR: Hysterectomy, Oophrectomy HEENT: Cataracts - Present Medications Home Medications: Ambulatory Orders Medication Instructions Recorded Confirmed Albuterol Sulfate [Proair Hfa 1 puffs INH Q4H PRN 12/14/19 12/14/19 Inhaler] Aspirin [Aspirin EC] 81 mg PO DAILY 12/14/19 12/14/19 Atorvastatin [Lipitor] 40 mg PO DAILY 12/14/19 12/14/19 Fluticasone/Salmeterol [Advair 1 puffs INH BID 12/14/19 12/14/19 250-50 Diskus] Gabapentin 900 mg PO DAILY PM 12/14/19 12/14/19 Insulin Aspart [NovoLOG] 10 units INJ TIDWM 12/14/19 12/14/19 Insulin Glargine [Lantus Solostar] 28 units INJ DAILY 12/14/19 12/14/19 Omeprazole 20 mg PO DAILY 12/14/19 12/14/19 Telmisartan [Micardis] 10 mg PO DAILY 12/14/19 12/14/19 Tiotropium [place] [Spiriva 4 gm IH DAILY 12/14/19 12/14/19 Respimat] Tolterodine Tartrate [Detrol LA] 2 mg PO DAILY 12/14/19 12/14/19 Acetaminophen [Tylenol] 650 mg PO Q6HR PRN #15 tablet 12/28/19 Cefdinir 300 mg PO BID 5 Days #10 capsule 12/28/19 Nystatin 100,000 unit PO QID 5 Days #100 ml 12/28/19 Quetiapine Fumarate [Seroquel] 50 mg PO QPM #60 tablet 09/10/23 - Allergies Allergies/Adverse Reactions: Allergies Allergy/AdvReac Type Severity Reaction Status Date / Time lisinopril Allergy Unknown Verified 10/26/23 17:53 mushroom Allergy Rash Verified 10/26/23 17:53 Penicillins Allergy Unknown Verified 10/26/23 17:53 shellfish derived Allergy Hives Verified 10/26/23 17:53 - Social History Does the pt smoke?: No Smoking Status: Never smoker Does the pt drink ETOH?: No Does the pt have substance abuse?: No - Immunizations Immunizations are current?: Yes - POLST Patient has POLST: No POLST Status: DNR (Advanced Directive with . DNR/I) PD ED PE NORMAL - Vitals Vital signs reviewed: Yes - General General: Alert and oriented X 3 (Not oriented to situation), No acute distress, Well developed/nourished - HEENT HEENT: Atraumatic, PERRL, EOMI, Moist mucous membranes - Neck Neck: Supple, no meningeal sign, No adenopathy, Thyroid normal, No JVD, C-Spine cleared by NEXUS criteria - Cardiac Cardiac: RRR, No murmur, No gallop, Strong equal pulses - Respiratory Respiratory: No respiratory distress, Clear bilaterally - Abdomen Abdomen: Normal bowel sounds, Soft, Non tender, No organomegaly - Back Back: No CVA TTP - Derm Derm: Normal color, Warm and dry, No rash, Other (No bruising, no abrasions or lacerations no erythema.) - Extremities Extremities: No deformity, No tenderness to palpate, Normal ROM s pain, No edema, No calf tenderness / cord - Neuro Neuro: Alert and oriented X 3, 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, No motor deficit, No sensory deficit, Normal speech Eye Opening: Spontaneous Motor: Obeys Commands Verbal: Oriented GCS Score: 15 - Psych Psych: Other (Patient is attempting to leave the emergency department difficult to redirect quite combative and agitated at times) Results - Vitals Vitals: Vital Signs - 24 hr 10/26/23 10/26/23 10/26/23 17:30 19:17 19:32 Temperature 36.3 C L Heart Rate 81 Respiratory 18 22 20 Rate Blood Pressure 136/102 H O2 Saturation 98 10/26/23 10/26/23 20:02 20:23 Temperature Heart Rate 82 Respiratory 20 18 Rate Blood Pressure 139/80 H O2 Saturation 94 Oxygen O2 Source Room air PD Medical Decision Making - ED course ED course: 88-year-old female presents emergency department after experiencing ground-level fall with her and from there is some serious agitation. It sounds like there is some issues at home with patient's daughters who are currently remodeling the patient's house right now. Patient's is at bedside he says that they do have a safe place to return home but patient needs to be more calm and cooperative before he is able to take her home. Patient is adamantly refusing a head CT and patient's agrees that at this time he does not believe that this is entirely warranted. She is able to ambulate without any difficulty she did not hit her head she did not lose consciousness and she is not any blood thinners. She does not appear to have any obvious injuries to her extremities chest or abdomen, she has had no nausea or vomiting since she has been here. We attempted to give her p.o. Seroquel to help her calm down and to redirect her into her room but patient refused to do so. We attempted multiple times to redirect the patient to calm her down to offer her distraction techniques and unfortunately we were unable to do so with success. Ultimately we had to chemically restrain the patient due to her safety to get her back into the room with IM Zyprexa. After IM Zyprexa she was significantly more calm and cooperative patient's feels safe to take home the patient at this time to monitor for an hour and patient's said that he did not want to wait any longer in the emergency department and wanted to get her home with a comfort of their own house and her into bed. I informed the patient that patient would greatly benefit from retirement facility he said that him and his family are going to start looking into this hopefully sometime this week with his daughters as patient is not quite amendable yet. Patient is alert and awake she is maintaining her own airway she is significantly more calm and redirectable sitting up in a chair without any issues. They are safe for discharge at this time patient's was informed that if he would like to pursue any imaging patient's head CT that they are able to come back to the emergency department for reevaluation or for any other concerning symptoms. They were strongly encouraged to follow-up primary care provider to come up with creative ways to help patient get Seroquel to help with her dementia symptoms. Departure - Departure Disposition: Home, Self Care Clinical Impression: Ground-level fall Dementia Qualifiers: Dementia type: unspecified type Dementia severity: unspecified severity Dementia behavioral or psychological symptom: with other behavioral disturbance Qualified Code(s): F03.918 - Unspecified dementia, unspecified severity, with other behavioral disturbance Instructions: ED Dementia Caregiver Support Comments: Thank you for trusting us with your care. We attempted to do a CT scan of your head but you declined at this time which I believe is very reasonable given the fact that you have absolutely no neurological symptoms of any intracranial hemorrhage or other acute abnormalities. It is very important that you are taking your Seroquel nightly to help with your psychotic features of dementia. I would do it every you possibly can to encourage your to take her Seroquel. I would also strongly encourage you and your family to look into a retirement facility placement for your to help with managing her behavioral disturbances due to her dementia. Forms: PCP List Discharge Date/Time: 10/26/23 20:35
[2023-10-26] MEDS: QUEtiapine 25 MG TABLET PO STA (18:59)
[2023-10-26] MEDS: OLANZapine 10 MG VIAL IM STA (19:02)
--- NOTE | 2023-10-26 19:06 | ED Physician Documentation ---
Restraint [id number] - Immediate Situation Face to Face Evaluation Date: 10/26/23 Face to Face Evaluation Time: 19:30 Restraint Classification: Violent, chemical - Patient's Reaction & Behaviors Safety: Physically safe, Compliant Other: Resting quietly - Behavioral Condition Attitude: Indifferent Behavior: Cooperative Orientation: Person, Place Mood: Content - Evaluation Pertinent History/Illicit Drugs/Medications/Results: Has dementia
[2023-10-26] MEDS: OLANZapine 10 MG VIAL IM ONE (19:08)
[2023-10-26 20:31] VITALS: BP 139/80; O2SAT 94
== END 2023-10-26 20:35 | disposition home or self-care (01) ==
LOC: EDUNIT# → ED 17:11
DX: Z03.89 Encounter for observation for other suspected diseases and conditions ruled out (principal); W01.0XXA Fall on same level from slipping, tripping and stumbling without subsequent striking against object, initial encounter; Y92.89 Other specified places as the place of occurrence of the external cause; F03.918 Unspecified dementia, unspecified severity, with other behavioral disturbance; Z91.148 Patient's other noncompliance with medication regimen for other reason; Z66 Do not resuscitate
CPT/HCPCS: 96372; 99283; 99285

== ENCOUNTER 2023-11-26 23:43 | Outpatient (CLI) | payer MEDICARE, OTHER | END 2023-11-26 23:59 | disposition EMS.NT | LOC: EMS 23:43 | DX: R45.2 Unhappiness (principal); F03.90 Unspecified dementia, unspecified severity, without behavioral disturbance, psychotic disturbance, mood disturbance, and anxiety ==

== ENCOUNTER 2023-12-04 02:57 | Outpatient (CLI) | payer MEDICARE, OTHER | END 2023-12-04 02:58 | disposition short-term general hospital (02) | LOC: EMS 02:57 | DX: F03.911 Unspecified dementia, unspecified severity, with agitation (principal) | CPT/HCPCS: A0425; A0429 ==

== ENCOUNTER 2023-12-05 19:52 | Outpatient (CLI) | payer MEDICARE, OTHER | END 2023-12-05 19:53 | disposition EMS.NT | LOC: EMS 19:52 | DX: R45.89 Other symptoms and signs involving emotional state (principal); Z63.8 Other specified problems related to primary support group ==

== ENCOUNTER 2024-03-21 13:45 | Outpatient (CLI) | payer MEDICARE, OTHER | END 2024-03-21 23:59 | disposition left against medical advice (07) | LOC: EMS 13:45 | DX: R55 Syncope and collapse (principal); R11.2 Nausea with vomiting, unspecified; R19.7 Diarrhea, unspecified; R42 Dizziness and giddiness ==

== ENCOUNTER 2024-03-31 06:51 | Outpatient (CLI) | payer MEDICARE, OTHER | END 2024-03-31 06:52 | disposition other institution (70) | LOC: EMS 06:51 | DX: F03.918 Unspecified dementia, unspecified severity, with other behavioral disturbance (principal); F22 Delusional disorders | CPT/HCPCS: A0425; A0429 ==